=== PATIENT | female | born 1975 | race African-American/Black ===

== ENCOUNTER 2024-06-03 05:29 | Inpatient (IN) ==
[2024-06-03] MEDS: ALBUT/IPRATROP 3MG/0.5MG NEB 3 ML VIAL NEB STA ×2 (05:48→06:02)
--- NOTE | 2024-06-03 06:26 | XRay Report ---
EXAM: XR chest 1V portable CLINICAL HISTORY: SOB, ASTHMA, FLU. TECHNIQUE: An X-ray image of the chest is obtained in AP projection. COMPARISON: Prior study dated 06/01/2024. FINDINGS: Pulmonary Parenchyma: Bilateral prominent bronchovascular markings, hilar vessels on the background of diffuse ground glass haziness Right lower lobe medial ill-defined haziness (new finding) No evidence of pleural effusion or pleural thickening. Heart and Mediastinum: Heart size and shape are normal. No mediastinal widening or masses. No hilar or mediastinal lymphadenopathy. Bony Thorax: Bony thorax appears intact without fractures or deformities. Soft Tissues: Soft tissues overlying the chest wall are unremarkable. IMPRESSION: 1. Bilateral prominent bronchovascular markings, hilar vessels on background of diffuse ground glass haziness (stable). 2. Right lower lobe medial ill-defined haziness (new finding), Clinical and lab correlation is advised to rule out pulmonary infection. Electronically signed by Lizet Valdez 06-03-2024 06:26 AM
[2024-06-03] MEDS: MAGNESIUM SULFATE 1GM / D5W BAG IV ONE (06:42)
[2024-06-03] MEDS: MAGNESIUM SULFATE / D5W 1 GM/100 ML BAG IV STA (06:43)
[2024-06-03] MEDS: SODIUM CHLORIDE 0.9% 1,000 ML IV ONE (06:43)
[2024-06-03 06:51] LABS: Base Excess VBG 3.4 mEq/L; HCO3 VBG 30 mmol/L; Oxygen Saturation VBG < 60.0 %; PCO2 VBG 50 mmHg (38-50); PO2 VBG 23 mmHg; pH VBG 7.38 (7.36-7.41)
[2024-06-03 06:56] LABS: Basophils # (auto) 0.05 K/uL (0.00-0.20); Basophils % (auto) 0.3 %; Eosinophils # (auto) 0.03 K/uL (0.00-0.50); Eosinophils % (auto) 0.2 %; Hematocrit (blood only) 41.4 % (37.0-47.0); Immature Granulocytes # (auto) 0.55 K/uL (0.01-0.20); Immature Granulocytes % (auto) 3.2 %; Lymphocytes # (auto) 1.61 K/uL (1.20-3.40); Lymphocytes % (auto) 9.4 %; Mean Corpuscular Hemoglobin 29.6 pg (25.0-34.0); Mean Corpuscular Hgb Conc 33.8 g/dL (32.0-36.0); Mean Corpuscular Volume 87.5 fL (80.0-100.0); Mean Platelet Volume 9.9 fL (9.4-12.4); Monocytes # (auto) 2.16 K/uL (0.11-0.59); Monocytes % (auto) 12.6 %; Neutrophils # (auto) 12.69 K/uL (1.40-6.50); Neutrophils % (auto) 74.3 %; Platelet Count 405 K/uL (130-400); RDW Coefficient of Variation 15.1 % (11.5-14.5); RDW Standard Deviation 48.9 fL (36.4-46.3); Red Blood Count 4.73 M/uL (4.20-5.40); White Blood Count 17.09 K/ul (4.8-10.8)
[2024-06-03 06:58] LABS: iSTAT Creatinine 0.8 mg/dl (0.6-1.3); iSTAT Hemoglobin 15.6 g/dl (12.0-16.0); iSTAT Ionized Calcium 1.2 mmol/l (1.12-1.32); iSTAT Potassium 4.1 mmol/L (3.3-5.0)
--- NOTE | 2024-06-03 06:59 | Emergency Department Note ---
Impression & Plan Acute hypoxemic respiratory failure, Acute dyspnea, Pneumonia, Influenza A, Elevated brain natriuretic peptide (BNP) level, Elevated troponin ED Provider Note HISTORY OF PRESENT ILLNESS: Patient is a 48-year-old female presenting with increasing shortness of breath. Patient reports that she has been "battling influenza for the last week." States that she has not been on any antibiotics. She was seen here 3 days ago and diagnosed with influenza and discharged with steroids and breathing treatment. She states that she has been taking the steroids and a breathing treatment without any relief in her symptoms, and in the last 24 hours has had increasing shortness of breath and feels like she cannot catch her breath. Denies any DVT or PE history. She does report some diffuse chest pressure that started just prior to arrival in the ER. She is not on any anticoagulation. But she feels like she cannot catch her breath. She has had a cough productive of clear sputum. Denies any recent fevers or chills. Denies any sick contact exposures. ROS: as above PHYSICAL EXAM: Constitutional: Patient appears in no acute distress. HENT: Head: Normocephalic and atraumatic. Eyes: EOMI, PERRL Mouth/Throat: Mucous membranes moist. Neck: Trachea midline. Neck supple. Cardiovascular: Tachycardic with regular rhythm. No murmurs, rubs or gallops. Intact distal pulses. Pulmonary/Chest: No respiratory distress. Breath sounds clear and equal bilaterally. Expiratory wheezes bilaterally. Abdominal: Abdomen soft, no tenderness, rebound or guarding. Musculoskeletal: No edema, tenderness or deformity noted. Skin: Warm and dry. No rash, erythema, pallor or cyanosis Psychiatric: Appropriate mood and affect for situation. Neurological: Alert and keenly responsive. CN II-XII grossly intact, moving all extremities equally and fully. MDM: - Vitals signs showed hypertension and tachycardia. - History obtained via patient. History as above. - Chronic conditions affecting care: Asthma - Differential diagnoses include, but are not limited to: Congestive heart failure; acute coronary syndrome; COPD/asthma exacerbation; pulmonary edema; pulmonary embolism; pneumonia; pneumothorax; viral syndrome - Order placed for continuous cardiac monitoring. At this time, monitor showed rate of 100 bpm with normal sinus rhythm, per my interpretation. - External medical records reviewed. - EKG interpreted by myself showed normal sinus rhythm. Rate tachycardic at 109 bpm. QT 328. No acute ischemic changes. - Laboratory workup interpreted by myself showed leukocytosis (WBC 17.09); normal PT/INR; elevated BNP (177); elevated lactate (2.3); hyperglycemia (glucose 283); elevated troponin (22.4); normal procalcitonin - Blood cultures obtained - VBG normal - Patient given 1g IV magnesium and hour-long duoneb treatment in ER - CXR shows right lower lobe pneumonia, per my interpretation. - Viral respiratory panel positive for influenza A. - UA negative for infection - CT PE negative for PE. Noted to have focal areas of consolidation in the right middle lobe. Also noted to have possible abscesses of the liver and spleen and recommended a CT scan of the abdomen. - CT abdomen/pelvis with IV contrast negative for abscesses. The findings likely represent hemangiomas per radiologist - Leukocytosis may be confounded by the patient's recent initiation of steroids. - Lactate improved with fluids. Elevated troponin likely secondary to patient's respiratory complaint. Repeat troponin trended down to 14. - Given 2g IV rocephin and 500 mg PO azithromycin for pneumonia coverage. - Patient's oxygen saturations are borderline and she was started on 2 L nasal cannula. Will admit to hospitalist service. - Discussion was had with case folder about patient's case and need for admission - Hospitalist consulted for admission - Patient admitted to [facility] hospitalist service for further evaluation and management. ASSESSMENT AND PLAN: Diagnosis: Acute hypoxic respiratory failure; acute dyspnea; pneumonia; elevated BNP; influenza A; elevated troponin Plan: Admit Past Med/Surg History Problem List (Updated 06/03/24 @ 10:19 by Jamee Gale MD) Elevated troponin (Acute) Elevated brain natriuretic peptide (BNP) level (Acute) Influenza A (Acute) Pneumonia (Acute) Acute dyspnea (Acute) Acute hypoxemic respiratory failure (Acute) Shortness of breath (Acute) Asthma (Acute) Influenza (Acute) Social History Smoking Status: Former smoker Preferred Language: [place] Feels Safe at Home: Yes Allergies Allergies Allergy/AdvReac Type Severity Reaction Status Date / Time nicotine [From Nicorette] Allergy Severe tongue Unverified 06/03/24 08:41 swells metformin Allergy sick Unverified 06/03/24 08:41 Home Meds Home Medications Medication Instructions Recorded Confirmed Ocrevus (Unknown Strength) See Rx Instructions .Route .COMPLEX 06/03/24 06/03/24 amlodipine 5 mg tablet 5 mg PO DAILY 06/03/24 06/03/24 lisinopril 10 mg tablet 10 mg PO DAILY 06/03/24 06/03/24 Previous Rx's Medication Instructions Recorded ipratropium 0.5 mg-albuterol 3 mg 3 ml inhalation Q8H PRN wheezing 06/01/24 (2.5 mg base)/3 mL nebulization #90 mL soln Results & Data (ED) Vital Signs Vital Signs - 24 hr 06/03/24 05:34 06/03/24 05:37 06/03/24 06:37 Pulse Rate 99 H 98 H 120 H Pulse Rate [Right Finger] Pulse Rhythm Regular Respiratory Rate 22 18 Respiratory Effort / Characteristics Blood Pressure 181/112 H Blood Pressure [Right Arm] Blood Pressure Mean 135 Blood Pressure Mean [Right Arm] Pulse Oximetry 91 94 Oxygen Delivery Method Room Air Room Air Oxygen Flow Rate Sepsis Recent Fever Within 48 Hours No Sepsis New/Unexplained Change in Mental Status No Sepsis Action Taken by Nursing No Action Required 06/03/24 07:09 06/03/24 07:16 06/03/24 09:36 Pulse Rate 100 H Pulse Rate [Right Finger] 98 H 92 H Pulse Rhythm Respiratory Rate 22 26 H Respiratory Effort / Characteristics Spontaneous Labored Short of Breath Blood Pressure Blood Pressure [Right Arm] 175/115 H Blood Pressure Mean Blood Pressure Mean [Right Arm] 135 Pulse Oximetry 91 99 Oxygen Delivery Method Nasal Cannula Oxygen Flow Rate 3 Sepsis Recent Fever Within 48 Hours Sepsis New/Unexplained Change in Mental Status Sepsis Action Taken by Nursing 06/03/24 09:52 Pulse Rate Pulse Rate [Right Finger] 100 H Pulse Rhythm Respiratory Rate 15 Respiratory Effort / Characteristics Blood Pressure Blood Pressure [Right Arm] Blood Pressure Mean Blood Pressure Mean [Right Arm] Pulse Oximetry 95 Oxygen Delivery Method Nasal Cannula Oxygen Flow Rate 2 Sepsis Recent Fever Within 48 Hours Sepsis New/Unexplained Change in Mental Status Sepsis Action Taken by Nursing Laboratory Data 06/03/24 06:31 06/03/24 06:31 Lab Results 06/03/24 06/03/24 06/03/24 Range/Units 05:45 06:30 06:31 WBC 17.09 H (4.8-10.8) K/ul RBC 4.73 (4.20-5.40) M/uL Hgb 14.0 (12.0-16.0) g/dl POC Hgb (12.0-16.0) g/dl Hct 41.4 (37.0-47.0) % POC Hct (37-47) % MCV 87.5 (80.0-100.0) fL MCH 29.6 (25.0-34.0) pg MCHC 33.8 (32.0-36.0) g/dL RDW Std Deviation 48.9 H (36.4-46.3) fL RDW Coeff of Sal 15.1 H (11.5-14.5) % Plt Count 405 H (130-400) K/uL MPV 9.9 (9.4-12.4) fL Immature Gran % (Auto) 3.2 % Neut % (Auto) 74.3 % Lymph % (Auto) 9.4 % [place] % (Auto) 12.6 % Eos % (Auto) 0.2 % Baso % (Auto) 0.3 % Neut # (Auto) 12.69 H (1.40-6.50) K/uL Lymph # (Auto) 1.61 (1.20-3.40) K/uL [place] # (Auto) 2.16 H (0.11-0.59) K/uL Eos # (Auto) 0.03 (0.00-0.50) K/uL Baso # (Auto) 0.05 (0.00-0.20) K/uL Immature Gran # (Auto) 0.55 H (0.01-0.20) K/uL PT 10.6 (9.0-12.0) Seconds INR 1.0 (0.9-1.1) VBG pH 7.38 (7.36-7.41) VBG pCO2 50 (38-50) mmHg VBG pO2 23 mmHg VBG HCO3 30 mmol/L VBG O2 Saturation < 60.0 % VBG Base Excess 3.4 mEq/L POC Sodium (135-144) mmol/L Sodium 134 L (136-145) mmol/L POC Potassium (3.3-5.0) mmol/L Potassium 4.2 (3.5-5.1) mmol/L POC Chloride (101-112) mmol/L Chloride 95 L (98-107) mmol/L Carbon Dioxide 30 (21-32) mmol/L POC Total CO2 (24-31) mmol/L Anion Gap 9 (3-11) POC Anion Gap (16-25) mmol/L POC BUN (7-18) mg/dl BUN 9 (6-23) mg/dl Creatinine 0.79 (0.6-1.2) mg/dl POC Creatinine (0.6-1.3) mg/dl Est Cr Clr Drug Dosing 83.8 ml/min eGFR 91.64 BUN/Creatinine Ratio 11.4 (10-20) Glucose 283 H (70-99(Fasting)) mg/dl POC Glucose 273 H (70-99) mg/dl POC Glucose (other) (70-99) mg/dl Lactate (0.4-2.0) mmol/L Calcium 10.0 (8.6-10.3) mg/dl POC Ioniz Calcium Mariam (1.12-1.32) mmol/l Magnesium 1.8 (1.7-2.4) mg/dl Total Bilirubin 0.8 (0.2-1.0) mg/dl AST 17 (13-39) U/L ALT 31 (7-52) U/L Alkaline Phosphatase 81 (34-104) U/L Troponin I High Sens 22.4 H D (0-14) pg/ml B-Natriuretic Peptide (0-100) pg/ml Total Protein 7.2 (6.0-8.3) gm/dl Albumin 4.3 (3.4-5.0) gm/dl Globulin 2.9 (2.5-4.0) gm/dl Albumin/Globulin Ratio 1.5 (0.9-2) Procalcitonin < 0.02 (0-0.5) ng/ml Urine Color Urine Appearance (Clear) Urine pH (4.5-7.5) Ur Specific [place] (1.000-1.030) Urine Protein (Negative) Urine Glucose (UA) (Negative) Urine Ketones (Negative) Urine Blood (Negative) Urine Nitrite (Negative) Urine Bilirubin (Negative) Urine Urobilinogen (Negative) Ur Leukocyte Esterase (Negative) Urine WBC (Auto) (0-5) /hpf Urine RBC (Auto) (0-2) /hpf U Hyaline Cast (Auto) (0-2) /lpf U Epithel Cells (Auto) (0-2) /hpf Urine Bacteria (Auto) (None Seen) Adenovirus (PCR) Not Detected (NotDetected) B. pertussis DNA (PCR) Not Detected (NotDetected) B.parapertussis DNA PCR Not Detected (NotDetected) C. pneumoniae DNA (PCR) Not Detected (NotDetected) Coronavirus OC43 (PCR) Not Detected (NotDetected) Coronavirus HKU1 (PCR) Not Detected (NotDetected) Coronavirus 229E (PCR) Not Detected (NotDetected) SARS-CoV-2 (PCR) Not Detected (NotDetected) Coronavirus NL63 (PCR) Not Detected (NotDetected) Human Metapneumovir PCR Not Detected (NotDetected) Influenza A Untype (PCR) DETECTED A (NotDetected) Influenza Type B (PCR) Not Detected (NotDetected) M. pneumoniae (PCR) Not Detected (NotDetected) Parainfluenza 1 (PCR) Not Detected (NotDetected) Parainfluenza 2 (PCR) Not Detected (NotDetected) Parainfluenza 3 (PCR) Not Detected (NotDetected) Parainfluenza 4 (PCR) Not Detected (NotDetected) RSV (PCR) Not Detected (NotDetected) Entero/Rhino (PCR) Not Detected (NotDetected) 06/03/24 06/03/24 06/03/24 Range/Units 06:45 07:29 07:49 WBC (4.8-10.8) K/ul RBC (4.20-5.40) M/uL Hgb (12.0-16.0) g/dl POC Hgb 15.6 (12.0-16.0) g/dl Hct (37.0-47.0) % POC Hct 46 (37-47) % MCV (80.0-100.0) fL MCH (25.0-34.0) pg MCHC (32.0-36.0) g/dL RDW Std Deviation (36.4-46.3) fL RDW Coeff of Sal (11.5-14.5) % Plt Count (130-400) K/uL MPV (9.4-12.4) fL Immature Gran % (Auto) % Neut % (Auto) % Lymph % (Auto) % [place] % (Auto) % Eos % (Auto) % Baso % (Auto) % Neut # (Auto) (1.40-6.50) K/uL Lymph # (Auto) (1.20-3.40) K/uL [place] # (Auto) (0.11-0.59) K/uL Eos # (Auto) (0.00-0.50) K/uL Baso # (Auto) (0.00-0.20) K/uL Immature Gran # (Auto) (0.01-0.20) K/uL PT (9.0-12.0) Seconds INR (0.9-1.1) VBG pH (7.36-7.41) VBG pCO2 (38-50) mmHg VBG pO2 mmHg VBG HCO3 mmol/L VBG O2 Saturation % VBG Base Excess mEq/L POC Sodium 133 L (135-144) mmol/L Sodium (136-145) mmol/L POC Potassium 4.1 (3.3-5.0) mmol/L Potassium (3.5-5.1) mmol/L POC Chloride 95 L (101-112) mmol/L Chloride (98-107) mmol/L Carbon Dioxide (21-32) mmol/L POC Total CO2 29 (24-31) mmol/L Anion Gap (3-11) POC Anion Gap 14.0 L (16-25) mmol/L POC BUN 7 (7-18) mg/dl BUN (6-23) mg/dl Creatinine (0.6-1.2) mg/dl POC Creatinine 0.8 (0.6-1.3) mg/dl Est Cr Clr Drug Dosing ml/min eGFR BUN/Creatinine Ratio (10-20) Glucose (70-99(Fasting)) mg/dl POC Glucose (70-99) mg/dl POC Glucose (other) 270 H (70-99) mg/dl Lactate 2.3 H* (0.4-2.0) mmol/L Calcium (8.6-10.3) mg/dl POC Ioniz Calcium Mariam 1.20 (1.12-1.32) mmol/l Magnesium (1.7-2.4) mg/dl Total Bilirubin (0.2-1.0) mg/dl AST (13-39) U/L ALT (7-52) U/L Alkaline Phosphatase (34-104) U/L Troponin I High Sens (0-14) pg/ml B-Natriuretic Peptide 177 H (0-100) pg/ml Total Protein (6.0-8.3) gm/dl Albumin (3.4-5.0) gm/dl Globulin (2.5-4.0) gm/dl Albumin/Globulin Ratio (0.9-2) Procalcitonin (0-0.5) ng/ml Urine Color Yellow Urine Appearance Clear (Clear) Urine pH 6.0 (4.5-7.5) Ur Specific [place] 1.026 (1.000-1.030) Urine Protein Trace H (Negative) Urine Glucose (UA) 2+ H (Negative) Urine Ketones Negative (Negative) Urine Blood Trace H (Negative) Urine Nitrite Negative (Negative) Urine Bilirubin Negative (Negative) Urine Urobilinogen Negative (Negative) Ur Leukocyte Esterase Negative (Negative) Urine WBC (Auto) 0-5 (0-5) /hpf Urine RBC (Auto) 3-5 H (0-2) /hpf U Hyaline Cast (Auto) 0-2 (0-2) /lpf U Epithel Cells (Auto) 0-2 (0-2) /hpf Urine Bacteria (Auto) None Seen (None Seen) Adenovirus (PCR) (NotDetected) B. pertussis DNA (PCR) (NotDetected) B.parapertussis DNA PCR (NotDetected) C. pneumoniae DNA (PCR) (NotDetected) Coronavirus OC43 (PCR) (NotDetected) Coronavirus HKU1 (PCR) (NotDetected) Coronavirus 229E (PCR) (NotDetected) SARS-CoV-2 (PCR) (NotDetected) Coronavirus NL63 (PCR) (NotDetected) Human Metapneumovir PCR (NotDetected) Influenza A Untype (PCR) (NotDetected) Influenza Type B (PCR) (NotDetected) M. pneumoniae (PCR) (NotDetected) Parainfluenza 1 (PCR) (NotDetected) Parainfluenza 2 (PCR) (NotDetected) Parainfluenza 3 (PCR) (NotDetected) Parainfluenza 4 (PCR) (NotDetected) RSV (PCR) (NotDetected) Entero/Rhino (PCR) (NotDetected) 06/03/24 Range/Units 09:24 WBC (4.8-10.8) K/ul RBC (4.20-5.40) M/uL Hgb (12.0-16.0) g/dl POC Hgb (12.0-16.0) g/dl Hct (37.0-47.0) % POC Hct (37-47) % MCV (80.0-100.0) fL MCH (25.0-34.0) pg MCHC (32.0-36.0) g/dL RDW Std Deviation (36.4-46.3) fL RDW Coeff of Sal (11.5-14.5) % Plt Count (130-400) K/uL MPV (9.4-12.4) fL Immature Gran % (Auto) % Neut % (Auto) % Lymph % (Auto) % [place] % (Auto) % Eos % (Auto) % Baso % (Auto) % Neut # (Auto) (1.40-6.50) K/uL Lymph # (Auto) (1.20-3.40) K/uL [place] # (Auto) (0.11-0.59) K/uL Eos # (Auto) (0.00-0.50) K/uL Baso # (Auto) (0.00-0.20) K/uL Immature Gran # (Auto) (0.01-0.20) K/uL PT (9.0-12.0) Seconds INR (0.9-1.1) VBG pH (7.36-7.41) VBG pCO2 (38-50) mmHg VBG pO2 mmHg VBG HCO3 mmol/L VBG O2 Saturation % VBG Base Excess mEq/L POC Sodium (135-144) mmol/L Sodium (136-145) mmol/L POC Potassium (3.3-5.0) mmol/L Potassium (3.5-5.1) mmol/L POC Chloride (101-112) mmol/L Chloride (98-107) mmol/L Carbon Dioxide (21-32) mmol/L POC Total CO2 (24-31) mmol/L Anion Gap (3-11) POC Anion Gap (16-25) mmol/L POC BUN (7-18) mg/dl BUN (6-23) mg/dl Creatinine (0.6-1.2) mg/dl POC Creatinine (0.6-1.3) mg/dl Est Cr Clr Drug Dosing ml/min eGFR BUN/Creatinine Ratio (10-20) Glucose (70-99(Fasting)) mg/dl POC Glucose (70-99) mg/dl POC Glucose (other) (70-99) mg/dl Lactate 1.4 (0.4-2.0) mmol/L Calcium (8.6-10.3) mg/dl POC Ioniz Calcium Mariam (1.12-1.32) mmol/l Magnesium (1.7-2.4) mg/dl Total Bilirubin (0.2-1.0) mg/dl AST (13-39) U/L ALT (7-52) U/L Alkaline Phosphatase (34-104) U/L Troponin I High Sens 14.4 H D (0-14) pg/ml B-Natriuretic Peptide (0-100) pg/ml Total Protein (6.0-8.3) gm/dl Albumin (3.4-5.0) gm/dl Globulin (2.5-4.0) gm/dl Albumin/Globulin Ratio (0.9-2) Procalcitonin (0-0.5) ng/ml Urine Color Urine Appearance (Clear) Urine pH (4.5-7.5) Ur Specific [place] (1.000-1.030) Urine Protein (Negative) Urine Glucose (UA) (Negative) Urine Ketones (Negative) Urine Blood (Negative) Urine Nitrite (Negative) Urine Bilirubin (Negative) Urine Urobilinogen (Negative) Ur Leukocyte Esterase (Negative) Urine WBC (Auto) (0-5) /hpf Urine RBC (Auto) (0-2) /hpf U Hyaline Cast (Auto) (0-2) /lpf U Epithel Cells (Auto) (0-2) /hpf Urine Bacteria (Auto) (None Seen) Adenovirus (PCR) (NotDetected) B. pertussis DNA (PCR) (NotDetected) B.parapertussis DNA PCR (NotDetected) C. pneumoniae DNA (PCR) (NotDetected) Coronavirus OC43 (PCR) (NotDetected) Coronavirus HKU1 (PCR) (NotDetected) Coronavirus 229E (PCR) (NotDetected) SARS-CoV-2 (PCR) (NotDetected) Coronavirus NL63 (PCR) (NotDetected) Human Metapneumovir PCR (NotDetected) Influenza A Untype (PCR) (NotDetected) Influenza Type B (PCR) (NotDetected) M. pneumoniae (PCR) (NotDetected) Parainfluenza 1 (PCR) (NotDetected) Parainfluenza 2 (PCR) (NotDetected) Parainfluenza 3 (PCR) (NotDetected) Parainfluenza 4 (PCR) (NotDetected) RSV (PCR) (NotDetected) Entero/Rhino (PCR) (NotDetected) Administered Medications Discontinued Medications Albuterol (Albut/Ipratrop 3mg/0.5mg Neb 3 Ml Vial) 3 ml NEB NOW STA; Protocol Stop: 06/03/24 05:39 Last Admin: 06/03/24 05:48 Dose: 3 ml Documented By: SONI Albuterol (Albut/Ipratrop 3mg/0.5mg Neb 3 Ml Vial) 3 ml NEB NOW STA; Protocol Stop: 06/03/24 05:56 Last Admin: 06/03/24 06:02 Dose: 3 ml Documented By: DARIUSZ Albuterol (Albut/Ipratrop 3mg/0.5mg Neb 3 Ml Vial) 12 ml NEB ONE ONE; Protocol Stop: 06/03/24 06:40 Last Admin: 06/03/24 07:09 Dose: 12 ml Documented By: EARLE Azithromycin (Azithromycin 250 Mg Tab) 500 mg PO NOW ONE Stop: 06/03/24 07:28 Last Admin: 06/03/24 08:28 Dose: 500 mg Documented By: ÁLVARO Magnesium Sulfate/Dextrose (Magnesium Sulfate / D5w) 1 gm in 100 mls @ 100 mls/hr IV NOW STA Stop: 06/03/24 07:38 Last Infusion: 06/03/24 08:20 Dose: Infused Documented By: Admin: 06/03/24 06:43 Dose: 100 mls/hr Documented By: DARIUSZ Sodium Chloride (Nss) 1,000 mls @ 999 mls/hr IV .Q1H1M ONE Stop: 06/03/24 07:40 Last Infusion: 06/03/24 08:28 Dose: Infused Documented By: Admin: 06/03/24 06:43 Dose: 999 mls/hr Documented By: DARIUSZ Ceftriaxone Sodium (Rocephin) 2,000 mg in 50 mls @ 100 mls/hr IV NOW STA Stop: 06/03/24 07:56 Last Infusion: 06/03/24 09:47 Dose: Infused Documented By: Admin: 06/03/24 08:29 Dose: 100 mls/hr Documented By: ÁLVARO Ioversol (Optiray 320 125ml) 112 ml IV ONCE ONE Stop: 06/03/24 07:39 Last Admin: 06/03/24 07:39 Dose: 112 ml Documented By: CHRIS Ioversol (Optiray 320 100ml) 93 ml IV ONCE ONE Stop: 06/03/24 09:13 Last Admin: 06/03/24 09:12 Dose: 93 ml Documented By: TALITA Magnesium Sulfate/Dextrose (Magnesium Sulfate 1gm / D5w Bag) Confirm Administered Dose 1 gm IV .STK-MED ONE Stop: 06/03/24 06:39 Last Admin: 06/03/24 06:42 Dose: Not Given Documented By: DARIUSZ Imaging Data Radiologist's Impression: Chest X-Ray 06/03/24 05:38 EXAM: XR chest 1V portable CLINICAL HISTORY: SOB, ASTHMA, FLU. TECHNIQUE: An X-ray image of the chest is obtained in AP projection. COMPARISON: Prior study dated 06/01/2024. FINDINGS: Pulmonary Parenchyma: Bilateral prominent bronchovascular markings, hilar vessels on the background of diffuse ground glass haziness Right lower lobe medial ill-defined haziness (new finding) No evidence of pleural effusion or pleural thickening. Heart and Mediastinum: Heart size and shape are normal. No mediastinal widening or masses. No hilar or mediastinal lymphadenopathy. Bony Thorax: Bony thorax appears intact without fractures or deformities. Soft Tissues: Soft tissues overlying the chest wall are unremarkable. IMPRESSION: 1. Bilateral prominent bronchovascular markings, hilar vessels on background of diffuse ground glass haziness (stable). 2. Right lower lobe medial ill-defined haziness (new finding), Clinical and lab correlation is advised to rule out pulmonary infection. Electronically signed by Lizet Valdez 06-03-2024 06:26 AM Chest CTA 06/03/24 06:31 EXAM: CT angio chest PE protocol CLINICAL HISTORY: Patient was here on sunday, and woke up this morning and symptoms were worsening. patient was here on sunday and was positive for the flu TECHNIQUE: Contiguous 3.[address] angiographic images of the chest were acquired with the administration of intravenous contrast (112ml opti 320). Coronal and sagittal reconstructions were obtained. One of these 3D techniques was utilized: Maximum Intensity Pixel (MIP), 3D Reconstructed Images, Volume Rendered Images, Surface Shaded Rendering. One of the following dose reduction techniques were utilized for this exam: Automated exposure control, adjustment of the mA and/or kV according to patient size, and use of iterative reconstruction. COMPARISON: Prior X-ray dated 06/03/2024 for comparison. FINDINGS: Aorta: The thoracic aorta is normal in caliber. No evidence of aneurysm, dissection, or significant atherosclerotic changes. Aortic arch and descending thoracic aorta are unremarkable. Pulmonary Arteries: Pulmonary arteries are normal in size and opacification. No evidence of pulmonary embolism. No stenosis or filling defects. Superior Vena Cava (SVC) and Inferior Vena Cava (IVC): Normal opacification and caliber. No evidence of thrombus or obstruction. Coronary Arteries: Coronary arteries are well-opacified. No significant stenosis or atherosclerotic changes. Mediastinum: Few enlarged lymph nodes in the subcarinal and right paraesophageal regions. Normal appearance of the thymus. Heart: Normal size and morphology of the heart. No pericardial effusion. Lungs: Focal area of consolidation in the medial segment of the right middle lobe. Multiple ground glass opacities, centrilobular as well as cavitary nodules diffusely scattered in bilateral lungs. Centrilobular emphysema in bilateral lungs. No pleural effusion or thickening. Bones: No fractures or lytic/sclerotic lesions of the visualized bony structures. Normal alignment and bone density. Soft Tissues: Normal appearance of the visualized soft tissues. No abnormal masses or fluid collections. The visualized upper abdomen shows hypodense lesions in the caudate lobe of the liver and spleen likely abscesses. IMPRESSION: 1. No evidence of pulmonary thromboembolism. 2. Focal area of consolidation in the medial segment of the right middle lobe. 3. Multiple ground glass opacities, centrilobular/tree in bud nodules as well as cavitary nodules diffusely scattered in bilateral lungs. 4. Findings likely infective etiology. 5. Few enlarged lymph nodes in the subcarinal and right paraesophageal regions. 6. The visualized upper abdomen shows hypodense lesions in the caudate lobe of the liver and spleen likely abscesses. A dedicated CT scan abdomen is advised Electronically signed by Lizet Valdez 06-03-2024 08:45 AM Abdomen/Pelvis CT 06/03/24 08:[address] WITH IV CONTRAST CT DOSE: 849.83 mGy.cm HISTORY: abnormalities of abdomen and spleen on CT chest TECHNIQUE: Multiaxial CT images of the abdomen and pelvis were performed following the IV administration of 90 cc of Optiray, A dose lowering technique was utilized adhering to the principles of ALARA. COMPARISON STUDY: Chest CT earlier today FINDINGS: Reticular nodular and groundglass opacities diffusely in the visualized lower lungs again seen, likely infectious/inflammatory etiology ABDOMEN: There is an 8 cm oval hypodense finding at the caudate lobe of the liver with peripheral discontinuous nodular enhancement. There is a 3 cm hypodense finding at the superior aspect of the spleen. These findings likely represent hemangiomas. Gallbladder is surgically absent. Pancreas and adrenal glands are unremarkable. Kidneys show no hydronephrosis. There are scattered atherosclerotic calcifications. No abdominal aortic aneurysm. Pelvis: Uterus and adnexa are grossly unremarkable. Urinary bladder is nondistended. There is residual contrast in the renal collecting systems, ureters, and urinary bladder from the contrast chest CT earlier today. No bowel inflammation or obstruction seen. No free fluid, free air, or abscess. No enlarged adenopathy. Osseous structures: There is degenerative disc disease at L5-S1. No acute osseous findings. IMPRESSION: Findings at the liver and spleen likely represent hemangiomas. Suggest follow-up nonurgent pre and postcontrast abdominal MRI with multiphase hemangioma protocol. ACT 112: Positive. There are findings on this exam that require communication between the performing entity and the patient following Patient Test Result Information Act ([place] Act 112) guidelines. The above report was generated using voice recognition software. It may contain grammatical, syntax or spelling errors. Electronically signed by: Shabbir Dubon M.D. 06/03/2024 9:43 AM Discharge Plan Visit Data Chief Complaint: Flu Like Symptoms Stated Complaint: FLU SYMPTOMS ED Provider: Jamee Gale Discharge Problem: Acute hypoxemic respiratory failure, Acute dyspnea, Pneumonia, Influenza A, Elevated brain natriuretic peptide (BNP) level, Elevated troponin Forms Stand Alone Forms: [facility] [email or web address] Prescriptions Prescriptions: No Action ipratropium-albuterol 0.5 mg-3 mg(2.5 mg base)/3 mL solution for nebulization 3 ml inhalation Q8H PRN (Reason: wheezing) Qty: 90 0RF amlodipine 5 mg tablet 5 mg PO DAILY lisinopril 10 mg tablet 10 mg PO DAILY Ocrevus (Unknown Strength) See Rx Instructions .ROUTE .COMPLEX Rx Instructions: Inject every 6 months Referrals Referrals: Jairo Brantley PA-C [Primary Care Provider] -
[2024-06-03] MEDS: ALBUT/IPRATROP 3MG/0.5MG NEB 3 ML VIAL NEB ONE (07:09)
[2024-06-03 07:26] LABS: Prothrombin Time 10.6 Seconds (9.0-12.0)
[2024-06-03 07:34] LABS: Albumin Globulin Ratio 1.5 (0.9-2); Albumin Level 4.3 gm/dl (3.4-5.0); BUN Creatinine Ratio 11.4 (10-20); Bilirubin,Total 0.8 mg/dl (0.2-1.0); Creatinine Clr Calc Pharmacy 83.8 ml/min; Globulin 2.9 gm/dl (2.5-4.0); Magnesium 1.8 mg/dl (1.7-2.4); Potassium 4.2 mmol/L (3.5-5.1); Total Protein 7.2 gm/dl (6.0-8.3)
[2024-06-03] MEDS: OPTIRAY 320 125ml IV ONE (07:39)
[2024-06-03 07:42] LABS: Troponin I High Sensitivity 22.4 pg/ml (0-14)
[2024-06-03] MEDS: AZITHROMYCIN 250 MG TAB PO ONE (08:28)
[2024-06-03] MEDS: cefTRIAXone SODIUM 2,000 MG/50 ML BAG IV STA (08:29)
[2024-06-03 08:35] LABS: Appearance Urine Clear (Clear); Bacteria Urine Automated None Seen (None Seen); Bilirubin Urine Negative (Negative); Blood Urine Trace (Negative); Cast Urine Automated 0-2 /lpf (0-2); Color Urine Yellow; Epithelial Cell Urine Auto 0-2 /hpf (0-2); Glucose Urine UA 2+ (Negative); Ketones Urine Negative (Negative); Leukocyte Esterase Urine Negative (Negative); Nitrite Urine Negative (Negative); Protein Urine Trace (Negative); Specific Gravity Urine 1.026 (1.000-1.030); Urobilinogen Urine Negative (Negative); WBC Urine Automated 0-5 /hpf (0-5)
--- NOTE | 2024-06-03 08:46 | CT Scan Report ---
EXAM: CT angio chest PE protocol CLINICAL HISTORY: Patient was here on sunday, and woke up this morning and symptoms were worsening. patient was here on sunday and was positive for the flu TECHNIQUE: Contiguous 3.[address] angiographic images of the chest were acquired with the administration of intravenous contrast (112ml opti 320). Coronal and sagittal reconstructions were obtained. One of these 3D techniques was utilized: Maximum Intensity Pixel (MIP), 3D Reconstructed Images, Volume Rendered Images, Surface Shaded Rendering. One of the following dose reduction techniques were utilized for this exam: Automated exposure control, adjustment of the mA and/or kV according to patient size, and use of iterative reconstruction. COMPARISON: Prior X-ray dated 06/03/2024 for comparison. FINDINGS: Aorta: The thoracic aorta is normal in caliber. No evidence of aneurysm, dissection, or significant atherosclerotic changes. Aortic arch and descending thoracic aorta are unremarkable. Pulmonary Arteries: Pulmonary arteries are normal in size and opacification. No evidence of pulmonary embolism. No stenosis or filling defects. Superior Vena Cava (SVC) and Inferior Vena Cava (IVC): Normal opacification and caliber. No evidence of thrombus or obstruction. Coronary Arteries: Coronary arteries are well-opacified. No significant stenosis or atherosclerotic changes. Mediastinum: Few enlarged lymph nodes in the subcarinal and right paraesophageal regions. Normal appearance of the thymus. Heart: Normal size and morphology of the heart. No pericardial effusion. Lungs: Focal area of consolidation in the medial segment of the right middle lobe. Multiple ground glass opacities, centrilobular as well as cavitary nodules diffusely scattered in bilateral lungs. Centrilobular emphysema in bilateral lungs. No pleural effusion or thickening. Bones: No fractures or lytic/sclerotic lesions of the visualized bony structures. Normal alignment and bone density. Soft Tissues: Normal appearance of the visualized soft tissues. No abnormal masses or fluid collections. The visualized upper abdomen shows hypodense lesions in the caudate lobe of the liver and spleen likely abscesses. IMPRESSION: 1. No evidence of pulmonary thromboembolism. 2. Focal area of consolidation in the medial segment of the right middle lobe. 3. Multiple ground glass opacities, centrilobular/tree in bud nodules as well as cavitary nodules diffusely scattered in bilateral lungs. 4. Findings likely infective etiology. 5. Few enlarged lymph nodes in the subcarinal and right paraesophageal regions. 6. The visualized upper abdomen shows hypodense lesions in the caudate lobe of the liver and spleen likely abscesses. A dedicated CT scan abdomen is advised Electronically signed by Lizet Valdez 06-03-2024 08:45 AM
[2024-06-03 08:53] LABS: Adenovirus PCR Not Detected (NotDetected); Bordetella parapertussis PCR Not Detected (NotDetected); Bordetella pertussis PCR Not Detected (NotDetected); Chlamydia pneumoniae PCR Not Detected (NotDetected); Coronavirus 229E PCR Not Detected (NotDetected); Coronavirus CoV-2 (COVID19)PCR Not Detected (NotDetected); Coronavirus HKU1 PCR Not Detected (NotDetected); Coronavirus NL63 PCR Not Detected (NotDetected); Coronavirus OC43PCR Not Detected (NotDetected); Human Metapneumovirus PCR Not Detected (NotDetected); Influenza A NoSubtype PCR DETECTED (NotDetected); Influenza B PCR Not Detected (NotDetected); Mycoplasma pneumoniae PCR Not Detected (NotDetected); Parainfluenza Virus 1 PCR Not Detected (NotDetected); Parainfluenza Virus 2 PCR Not Detected (NotDetected); Parainfluenza Virus 3 PCR Not Detected (NotDetected); Parainfluenza Virus 4 PCR Not Detected (NotDetected); Respiratory Syncytial VirusPCR Not Detected (NotDetected); Rhinovirus/Enterovirus PCR Not Detected (NotDetected)
[2024-06-03] MEDS: OPTIRAY 320 100ml IV ONE (09:12)
--- NOTE | 2024-06-03 09:45 | CT Scan Report ---
ABDOMEN AND PELVIS CT WITH IV CONTRAST CT DOSE: 849.83 mGy.cm HISTORY: abnormalities of abdomen and spleen on CT chest TECHNIQUE: Multiaxial CT images of the abdomen and pelvis were performed following the IV administrat ion of 90 cc of Optiray, A dose lowering technique was utilized adhering to the principles of ALARA. COMPARISON STUDY: Chest CT earlier today FINDINGS: Reticular nodular and groundglass opacities diffusely in the visualized lower lungs again s een, likely infectious/inflammatory etiology ABDOMEN: There is an 8 cm oval hypodense finding at the caudate lobe of the liver with peripheral dis continuous nodular enhancement. There is a 3 cm hypodense finding at the superior aspect of the splee n. These findings likely represent hemangiomas. Gallbladder is surgically absent. Pancreas and adrena l glands are unremarkable. Kidneys show no hydronephrosis. There are scattered atherosclerotic calcif ications. No abdominal aortic aneurysm. Pelvis: Uterus and adnexa are grossly unremarkable. Urinary bladder is nondistended. There is residua l contrast in the renal collecting systems, ureters, and urinary bladder from the contrast chest CT e arlier today. No bowel inflammation or obstruction seen. No free fluid, free air, or abscess. No enla rged adenopathy. Osseous structures: There is degenerative disc disease at L5-S1. No acute osseous findings. IMPRESSION: Findings at the liver and spleen likely represent hemangiomas. Suggest follow-up nonurgen t pre and postcontrast abdominal MRI with multiphase hemangioma protocol. ACT 112: Positive. There are findings on this exam that require communication between the performing entity and the patient following Patient Test Result Information Act ([place] Act 112) guidelines. The above report was generated using voice recognition software. It may contain grammatical, syntax o r spelling errors. Electronically signed by: Shabbir Dubon M.D. 06/03/2024 9:43 AM
--- NOTE | 2024-06-03 10:04 | History & Physical Report ---
Date of Service June 03, 2024 Assessment & Plan (1) Influenza A: (2) Acute hypoxemic respiratory failure: (3) Syncope: (4) Hypertension: (5) Hyperglycemia: Plan if a 48F with a PMHx of asthma, HTN and MS, and recent dx of Influenza A who presents to the ED with continued shortness of breath and possible syncopal episodes at home. CTA chest showed no PE, multiple ground glass opacities, cavitary nodules diffusely scattered in bilateral lungs and a few enlarged lymph nodes. Was given steroids, nebs and antibiotics. Will be admitted for continue antibiotics, steroids and syncope workup. #Influenza A/ acute hypoxic respiratory failure/PNA Blood cultures: pending Outside of the window for Tamiflu. Continue IV ceftriaxone 2g q24h, PO azithromycin. Leukocytosis (17) - likely from cute illness + recent steroid use. Trend CBC Baseline room air, wean O2 as able, goal > 90% Supportive care: IS, FV, Mucinex, scheduled nebs Per discussion with Dr. Zapata - consult pulm for cavitary lesions - ID consulted. MRSA coverage added for concerns for septic emboli. #Possible Syncope/ Elevated troponin Reports two episodes at home where she wakes up feeling different, unclear if there is true loss of consciousness Troponin peaked at 22.4. EKG sinus tachycardia without ST elevations. Clinically denies Chest pain. Check orthostatic vital signs. Echo ordered Monitor on Tele. #Hyperglycemia Glucose 283 on admission. A1c ordered SSI with continued steroids hyponatremia corrects to normal with hyperglycemia #HTN Significant elevations on admission but did not take her medications this morning Continue lisinopril 10mg PO, amlodipine 5mg PO #abnormal CT scan findings 8cm hypodense finding in lobe of liver and 3cm hypodense finding of spleen - recommend nonurgent pre and postcontrast abdominal MRI with multiphase hemangioma protocol Pt aware of above 06/03 #Nicotine Dependence hc of 05/15 ppd - stopped smoking with recent illness. declines nicotine patch. Encourage cessation. Dispo: admit to med/tele DVT proh: lovenox Code status: Full updated at bedside 06/03 History of Present Illness Chief Complaint: shortness of breath Primary Care Provider: Jairo Brantley PA-C is a 48F with a PMHx of asmtha, HTN and MS who presents to the ED with continued shortness of breath. Has been diagnosed with influenza A about 2 weeks ago and has that 3 ER visits since then (2 at [facility]) with continued worsening of symptoms. Does report that steroids and nebulizer treatments helped initially but getting worse since noon yesterday. Reports shortness of breath and productive cough. Poor appetite, mainly taking in liquids. Also reporting loose stools. Does report two episodes of possible syncope - both happening at night after a coughing fit and reports "waking up feeling different". She is unsure if she has prodromal symptoms. Did not take her medications this morning, but based on her fill history, she likely does not take these everyday. Elevated BSG on arrival states she has been working with her PCP but has not been to the pharmacy to grain picker the medication yet (unsure of name). Quit smoking a week and half ago when she started getting sick. Was smoking 1/2 ppd. Declines nictoine patch. ETOH use is social. present at [facility] for eval. patient would like to be a full code. ED course: Duoneb NSS x1L Ceftriaxone 2g x1 azithromycin 500mg PO Allergies Allergy/AdvReac Type Severity Reaction Status Date / Time nicotine [From Nicorette] Allergy Severe tongue Unverified 06/03/24 08:41 swells metformin Allergy sick Unverified 06/03/24 08:41 Home Medications Medication Instructions Recorded Confirmed Type ipratropium 0.5 mg-albuterol 3 mg 3 ml inhalation Q8H PRN wheezing 06/01/24 06/03/24 Rx (2.5 mg base)/3 mL nebulization #90 mL soln Ocrevus (Unknown Strength) See Rx Instructions .Route .COMPLEX 06/03/24 06/03/24 History amlodipine 5 mg tablet 5 mg PO DAILY 06/03/24 06/03/24 History lisinopril 10 mg tablet 10 mg PO DAILY 06/03/24 06/03/24 History Past Med/Surg History Problem List Diabetes Bacteremia Hyperglycemia Hypertension Syncope Elevated troponin (Acute) Elevated brain natriuretic peptide (BNP) level (Acute) Influenza A (Acute) Pneumonia (Acute) Acute dyspnea (Acute) Acute hypoxemic respiratory failure (Acute) Shortness of breath (Acute) Asthma (Acute) Influenza (Acute) Social History Smoking Status: Former smoker Hx Alcohol Use: No Hx Substance Use: No Preferred Language: Khmer Communication Ability: Effective 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 Resp: some accessory muscle use, poor aeration. no wheezing, but recently had hour long neb. On 3L NC 92% CV: RRR, no murmur, Abd: normal bowel sounds, non tender, Extremities: Moves all extremities, no edema Neuro: A&O x3, Results & Data Results & Data Vital Signs (Past 12 Hours) Vital Signs Pulse Pulse Resp BP BP Pulse Ox O2 Del Method 06/03/24 09:52 100 H 15 95 Nasal Cannula 06/03/24 09:36 100 H 06/03/24 07:16 92 H 26 H 175/115 H 99 06/03/24 07:09 98 H 22 91 Nasal Cannula 06/03/24 06:37 120 H 18 94 Room Air 06/03/24 05:37 98 H 06/03/24 05:34 99 H 22 181/112 H 91 Room Air O2 Flow Rate 06/03/24 09:52 2 06/03/24 09:36 06/03/24 07:16 06/03/24 07:09 3 06/03/24 06:37 06/03/24 05:37 06/03/24 05:34 Laboratory Results cbc, chemistry, vbg, procal, lfts, UA reviewed Diagnostic Findings cxr reviewed ct chest reviewed cta/p reviewed Supervising Physician Co-Signing Physician Notes Attending Attestation & Admission Note: Pt seen/examined, chart reviewed, admission care plan d/w ZAFAR Mosher. I agree w/ the sharma components of her documentation. 48yo female with history of asthma, MS, and tobacco dependence who presents with 2+ weeks of respiratory symptoms including cough, congestion, wheezing, dyspnea and dyspnea on exertion. Also with very poor po intake. Dx with fluA infection about 2 weeks ago. Multiple ER visits since being dx with fluA. During my assessment c/o chest tightness and orthopnea but no pleuritic pain. PMH/PSH/allergies/meds/sochx/famhx - reviewed Vitals - tachypneic at presentation (RR of 26), O2 sats ~90% at presentation, afebrile, BP wnl gen - looks ill, tired, mild distress mouth - MM dry neck - no JVD heart - tachy, s1 s2, no murmur lungs - b/l basilar rales with b/l wheezes, mild tachypnea abd - soft NT ND BS+ ext - no edema, pulses 2+ b/l labs reviewed cxr reviewed CTA chest - IMPRESSION: 1. No evidence of pulmonary thromboembolism. 2. Focal area of consolidation in the medial segment of the right middle lobe. 3. Multiple ground glass opacities, centrilobular/tree in bud nodules as well as cavitary nodules diffusely scattered in bilateral lungs. 4. Findings likely infective etiology. 5. Few enlarged lymph nodes in the subcarinal and right paraesophageal regions. 6. The visualized upper abdomen shows hypodense lesions in the caudate lobe of the liver and spleen likely abscesses. A dedicated CT scan abdomen is advised blood cx's dispatched A/P: 1. acute hypoxic resp failure 2nd to b/l pneumonia and fluA infection in the setting of baseline asthma 2. b/l pneumonia - cavitary nodules noted by radiology - quite unusual for influenza infection. etiology of nodules?? will ask pulmonary to consult. in meantime - rocephin/zithromax to cover typicals/atypicals. 3. fluA infection - 2 weeks out from start; out of window for Tamiflu anti- viral medicine; supportive care 4. asthma - consider continuing steroids for bronchospasm. Cont nebs. Flutter valve, mucolytics, etc. 5. tobacco dependence - nicoderm patch if desired. 6. MS - laurel risk factor for complications from the influenza. Hold Ocrevus. 7. DVT proph - lovenox. 8. abnormal liver/spleen lesions - etiology? CT a/p with "Findings at the li susie and spleen likely represent hemangiomas. Suggest follow-up nonurgent pre and postcontrast abdominal MRI with multiphase hemangioma protocol." this can be deferred to the outpatient setting after discharge. 9. hyperglycemia - check a1c, add novolog SSI and/or lantus basal insulin if needed. Last Zapata MD PG Care Time/CCT Total # of Minutes Spent Total Time Spent with Patient: Total time spent is greater than 50% in coordination of care (as documented) at patient's floor/unit and/or counseling patient: Coding Level of Care Code 33642 INT INP/OBS CARE 3/75MIN Diagnoses Influenza A J10.1 Acute hypoxemic respiratory failure J96.01 Syncope R55 Hypertension I10 Hyperglycemia R73.9
[2024-06-03] MEDS: guaiFENesin 600 MG TABCR PO SCH (11:53)
[2024-06-03] MEDS: DEXAMETHASONE SOD INJ 4 MG/ML VIAL IV STA (11:54)
[2024-06-03] MEDS: lisinopril 10 MG TAB PO ONE (12:16)
[2024-06-03] MEDS: amLODIPine BESYLATE 5 MG TAB PO ONE (12:16)
--- NOTE | 2024-06-03 13:33 | XCELERA ---
[id number]
[2024-06-03] MEDS ORDERED: GLUCOSE 10 TAB/TUBE PO PRN (13:44)
[2024-06-03] MEDS ORDERED: GLUCOSE 40% GEL 15 GM TUBE PO PRN (13:44)
[2024-06-03] MEDS ORDERED: GLUCAGON FOR INJ 1 MG VIAL SQ PRN (13:44)
[2024-06-03] MEDS ORDERED: POLYETHYLENE (MIRALAX) 17 GM PACK PO PRN (13:44)
[2024-06-03] MEDS ORDERED: ACETAMINOPHEN 325 MG TAB PO PRN (13:44)
[2024-06-03] MEDS ORDERED: ONDANSETRON INJ 2 MG/ML 2 ML VIAL IV PRN (13:44)
[2024-06-03] MEDS ORDERED: CARBOHYDRATES FOR HYPOGLYCEMIA PO PRN (13:44)
[2024-06-03] MEDS ORDERED: DEXTROSE 50% 50 ML SYRINGE IV PRN (13:44)
--- NOTE | 2024-06-03 13:58 | Electrocardiogram Report ---
Test Reason : Blood Pressure : */* mmHG Vent. Rate : 109 BPM Atrial Rate : 109 BPM P-R Int : 132 ms QRS Dur : 78 ms QT Int : 328 ms P-R-T Axes : 91 104 106 degrees QTcB Int : 441 ms Suspect arm lead reversal, interpretation assumes no reversal Sinus tachycardia Right atrial enlargement Minimal voltage criteria for LVH, may be normal variant Lateral infarct , age undetermined Abnormal ECG When compared with ECG of 01-Jun-2024 10:09, Lateral infarct is now Present Confirmed by Jefferson Mix ([id number] on 06/03/2024 1:58:26 PM Referred By: REFERRED SELF Confirmed By: Jefferson Mix
--- NOTE | 2024-06-03 14:26 | Pulmonary Consultation ---
Date of Consultation June 03, 2024 Assessment & Plan (1) Influenza A: (2) Pneumonia: Plan Impression: 48-year-old immune suppressed female on Ocrevus and prednisone for MS admitted 2 weeks post influenza with findings on CT scans concerning for hematogenous spread. There are hypodense lesions in the liver and spleen which likely represent abscesses as well. Recommendations: 1. CT findings are highly concerning for hematogenous spread/septic emboli. Echocardiogram reviewed. Blood cultures are pending. The patient is been initiated on azithromycin and Rocephin. Would recommend infectious disease consultation. 2. Hypoxemia: Continue supplemental oxygen titrated to keep saturations at or above 88%. 3. Follow-up on results of blood cultures. If positive, may need SAEID evaluation including evaluation for PFO for paradoxical embolus. 4. Influenza A: 2 weeks out. No indication for Tamiflu currently. At risk for superimposed staph infection and would defer to infectious disease as to whether or not antibiotic should be broadened. Steroids relatively contraindicated in the setting of influenza. 5. Asthma: Unclear if the patient actually has asthma or not. She is not bronchospastic currently. Can continue as needed DuoNebs. No indication for systemic steroids at this point in time. Total of 60 minutes was spent in evaluation management coordination of care of this complex patient. Thanks for the opportunity to participate in the care of this patient. Will continue to follow with you. History of Present Illness Attending Physician: Last Zapata MD History of Present Illness Asked by hospitalist to assist in evaluation management of this patient with multifocal airspace opacity and hypoxemic respiratory failure. History is obtained from discussion with the patient as well as review the electronic medical record. Patient is a 48-year-old female who is established with Dr. Alejandre through [facility]. She is followed for history of asthma. She presents to the hospital with a 2-week history of respiratory issues. She has apparently been seen in the [facility] emergency room on several occasions and sent home. We do not have any records from those evaluations which she was diagnosed with influenza A. She was reportedly given steroids and nebulizers but had progressive shortness of breath and presyncope associated with cough. She presented to the emergency room here due to progressive symptoms. She was found to have multifocal airspace opacity and initiated on Rocephin and azithromycin. She was hypoxemic and supplemental oxygen was initiated as well. She was evaluated for thromboembolic disease with no evidence of PE. She been admitted to the hospitalist service and pulmonary is consulted for additional evaluation management. Patient is coughing up yellow phlegm. Initially was green. She is never had hemoptysis. She denies chest pain or palpitations. She lives at home with her . He may be ill as well. She has 1 dog at home but no other pets. She quit smoking about 3 weeks ago. She does not endorse any vaping, or e-cigarette use. No occupational or environmental exposures that she is on disability due to her MS. She states at baseline she is able to ambulate without assistance and does not use supplemental oxygen at baseline. With regards to her asthma, no PFTs are available although she reports she has had pulmonary function testing performed previously. Allergies Allergy/AdvReac Type Severity Reaction Status Date / Time nicotine [From Nicorette] Allergy Severe tongue Unverified 06/03/24 08:41 swells metformin Allergy sick Unverified 06/03/24 08:41 Home Medications Medication Instructions Recorded Confirmed Type ipratropium 0.5 mg-albuterol 3 mg 3 ml inhalation Q8H PRN wheezing 06/01/24 06/03/24 Rx (2.5 mg base)/3 mL nebulization #90 mL soln Ocrevus (Unknown Strength) See Rx Instructions .Route .COMPLEX 06/03/24 06/03/24 History amlodipine 5 mg tablet 5 mg PO DAILY 06/03/24 06/03/24 History lisinopril 10 mg tablet 10 mg PO DAILY 06/03/24 06/03/24 History Patient History Social History Smoking Status: Former smoker Preferred Language: Khmer Feels Safe at Home: Yes Review of Systems Review of Systems: Please refer to admission H&P. No additions or deletions Physical Exam Constitutional: WD/WN, vitals as above Neck: trachea midline, no thyromegaly Respiratory: + labored breathing and + tachypneic; no respiratory distress and no cough Auscultation: + rhonchi; no wheezes Cardiovascular: RRR, no murmur, no edema Gastrointestinal (Abdomen): normal bowel sounds, soft, nontender, no hepatosplenomegaly Musculoskeletal: Extremities: extremities normal to inspection Skin: no rashes, warm and dry Neurologic: Nonfocal exam Lymphatic: no cervical lymphadenopathy Results & Data Results & Data Vital Signs (Past 12 Hours) Vital Signs Pulse Pulse Resp BP BP Pulse Ox O2 Del Method 06/03/24 11:00 98 H 22 167/111 H 98 Room Air 06/03/24 09:52 100 H 15 95 Nasal Cannula 06/03/24 09:36 100 H 06/03/24 07:16 92 H 26 H 175/115 H 99 06/03/24 07:09 98 H 22 91 Nasal Cannula 06/03/24 06:37 120 H 18 94 Room Air 06/03/24 05:37 98 H 06/03/24 05:34 99 H 22 181/112 H 91 Room Air O2 Flow Rate 06/03/24 11:00 06/03/24 09:52 2 06/03/24 09:36 06/03/24 07:16 06/03/24 07:09 3 06/03/24 06:37 06/03/24 05:37 06/03/24 05:34 Critical Care Results & Data Vital Signs (Past 12 Hours) Vital Signs Pulse Pulse Resp BP BP Pulse Ox O2 Del Method 06/03/24 11:00 98 H 22 167/111 H 98 Room Air 06/03/24 09:52 100 H 15 95 Nasal Cannula 06/03/24 09:36 100 H 06/03/24 07:16 92 H 26 H 175/115 H 99 06/03/24 07:09 98 H 22 91 Nasal Cannula 06/03/24 06:37 120 H 18 94 Room Air 06/03/24 05:37 98 H 06/03/24 05:34 99 H 22 181/112 H 91 Room Air O2 Flow Rate 06/03/24 11:00 06/03/24 09:52 2 06/03/24 09:36 06/03/24 07:16 06/03/24 07:09 3 06/03/24 06:37 06/03/24 05:37 06/03/24 05:34 Lab & Micro Results (Past 24 Hours) RBC 4.73 M/uL (4.20-5.40) 06/03/24 WBC 17.09 K/ul (4.8-10.8) H 06/03/24 Hgb 14.0 g/dl (12.0-16.0) 06/03/24 Hct 41.4 % (37.0-47.0) 06/03/24 MCV 87.5 fL (80.0-100.0) 06/03/24 MCH 29.6 pg (25.0-34.0) 06/03/24 MCHC 33.8 g/dL (32.0-36.0) 06/03/24 RDW Standard Deviation 48.9 fL (36.4-46.3) H 06/03/24 RDW Coefficient of Variation 15.1 % (11.5-14.5) H 06/03/24 Plt Count 405 K/uL (130-400) H 06/03/24 MPV 9.9 fL (9.4-12.4) 06/03/24 Neutrophils (%) (Auto) 74.3 % 06/03/24 Lymphocytes (%) (Auto) 9.4 % 06/03/24 Monocytes # (Auto) 2.16 K/uL (0.11-0.59) H 06/03/24 Eosinophils # (Auto) 0.03 K/uL (0.00-0.50) 06/03/24 Immature Granulocyte % (Auto) 3.2 % 06/03/24 Neutrophils # (Auto) 12.69 K/uL (1.40-6.50) H 06/03/24 Lymphocytes # (Auto) 1.61 K/uL (1.20-3.40) 06/03/24 Monocytes # (Auto) 2.16 K/uL (0.11-0.59) H 06/03/24 Eosinophils # (Auto) 0.03 K/uL (0.00-0.50) 06/03/24 Basophils # (Auto) 0.05 K/uL (0.00-0.20) 06/03/24 Immature Granulocyte # (Auto) 0.55 K/uL (0.01-0.20) H 06/03 Na 134 mmol/L (136-145) L 06/03/24 K 4.2 mmol/L (3.5-5.1) 06/03/24 Cl 95 mmol/L (98-107) L 06/03/24 CO2 30 mmol/L (21-32) 06/03/24 Anion Gap 9 (3-11) 06/03/24 BUN 9 mg/dl (6-23) 06/03/24 Creatinine 0.79 mg/dl (0.6-1.2) 06/03/24 BUN/Creatinine Ratio 11.4 (10-20) 06/03/24 Glu 283 mg/dl (70-99(Fasting)) H 06/03/24 Ca 10.0 mg/dl (8.6-10.3) 06/03/24 Total Bilirubin 0.8 mg/dl (0.2-1.0) 06/03/24 AST 17 U/L (13-39) 06/03/24 ALT 31 U/L (7-52) 06/03/24 Alkaline Phosphatase 81 U/L (34-104) 06/03/24 TP 7.2 gm/dl (6.0-8.3) 06/03/24 Albumin 4.3 gm/dl (3.4-5.0) 06/03/24 Globulin 2.9 gm/dl (2.5-4.0) 06/03/24 Albumin/Globulin Ratio 1.5 (0.9-2) 06/03/24 Mg 1.8 mg/dl (1.7-2.4) 06/03/24 06:31 Calcium Level 10.0 mg/dl (8.6-10.3) 06/03/24 06:31 Prothromb Time International Ratio 1.0 (0.9-1.1) 06/03/24 06:3 1 Venous Blood pH 7.38 (7.36-7.41) 06/03/24 06:31 Venous Blood Partial Pressure CO2 50 mmHg (38-50) 06/03/24 06:3 1 Venous Blood Partial Pressure O2 23 mmHg 06/03/24 06:31 Venous Blood HCO3 30 mmol/L 06/03/24 06:31 Venous Blood Base Excess 3.4 mEq/L 06/03/24 06:31 Venous Blood Oxygen Saturation < 60.0 % 06/03/24 06:31 Diagnostic Findings (Past 24 Hours) Chest X-Ray 06/03/24 05:38 EXAM: XR chest 1V portable CLINICAL HISTORY: SOB, ASTHMA, FLU. TECHNIQUE: An X-ray image of the chest is obtained in AP projection. COMPARISON: Prior study dated 06/01/2024. FINDINGS: Pulmonary Parenchyma: Bilateral prominent bronchovascular markings, hilar vessels on the background of diffuse ground glass haziness Right lower lobe medial ill-defined haziness (new finding) No evidence of pleural effusion or pleural thickening. Heart and Mediastinum: Heart size and shape are normal. No mediastinal widening or masses. No hilar or mediastinal lymphadenopathy. Bony Thorax: Bony thorax appears intact without fractures or deformities. Soft Tissues: Soft tissues overlying the chest wall are unremarkable. IMPRESSION: 1. Bilateral prominent bronchovascular markings, hilar vessels on background of diffuse ground glass haziness (stable). 2. Right lower lobe medial ill-defined haziness (new finding), Clinical and lab correlation is advised to rule out pulmonary infection. Electronically signed by Lizet Valdez 06-03-2024 06:26 AM Chest CTA 06/03/24 06:31 EXAM: CT angio chest PE protocol CLINICAL HISTORY: Patient was here on sunday, and woke up this morning and symptoms were worsening. patient was here on sunday and was positive for the flu TECHNIQUE: Contiguous 3.[address] angiographic images of the chest were acquired with the administration of intravenous contrast (112ml opti 320). Coronal and sagittal reconstructions were obtained. One of these 3D techniques was utilized: Maximum Intensity Pixel (MIP), 3D Reconstructed Images, Volume Rendered Images, Surface Shaded Rendering. One of the following dose reduction techniques were utilized for this exam: Automated exposure control, adjustment of the mA and/or kV according to patient size, and use of iterative reconstruction. COMPARISON: Prior X-ray dated 06/03/2024 for comparison. FINDINGS: Aorta: The thoracic aorta is normal in caliber. No evidence of aneurysm, dissection, or significant atherosclerotic changes. Aortic arch and descending thoracic aorta are unremarkable. Pulmonary Arteries: Pulmonary arteries are normal in size and opacification. No evidence of pulmonary embolism. No stenosis or filling defects. Superior Vena Cava (SVC) and Inferior Vena Cava (IVC): Normal opacification and caliber. No evidence of thrombus or obstruction. Coronary Arteries: Coronary arteries are well-opacified. No significant stenosis or atherosclerotic changes. Mediastinum: Few enlarged lymph nodes in the subcarinal and right paraesophageal regions. Normal appearance of the thymus. Heart: Normal size and morphology of the heart. No pericardial effusion. Lungs: Focal area of consolidation in the medial segment of the right middle lobe. Multiple ground glass opacities, centrilobular as well as cavitary nodules diffusely scattered in bilateral lungs. Centrilobular emphysema in bilateral lungs. No pleural effusion or thickening. Bones: No fractures or lytic/sclerotic lesions of the visualized bony structures. Normal alignment and bone density. Soft Tissues: Normal appearance of the visualized soft tissues. No abnormal masses or fluid collections. The visualized upper abdomen shows hypodense lesions in the caudate lobe of the liver and spleen likely abscesses. IMPRESSION: 1. No evidence of pulmonary thromboembolism. 2. Focal area of consolidation in the medial segment of the right middle lobe. 3. Multiple ground glass opacities, centrilobular/tree in bud nodules as well as cavitary nodules diffusely scattered in bilateral lungs. 4. Findings likely infective etiology. 5. Few enlarged lymph nodes in the subcarinal and right paraesophageal regions. 6. The visualized upper abdomen shows hypodense lesions in the caudate lobe of the liver and spleen likely abscesses. A dedicated CT scan abdomen is advised Electronically signed by Lizet Valdez 06-03-2024 08:45 AM Abdomen/Pelvis CT 06/03/24 08:[address] WITH IV CONTRAST CT DOSE: 849.83 mGy.cm HISTORY: abnormalities of abdomen and spleen on CT chest TECHNIQUE: Multiaxial CT images of the abdomen and pelvis were performed fo llowing the IV administration of 90 cc of Optiray, A dose lowering technique was utilized adhering to the principles of ALARA. COMPARISON STUDY: Chest CT earlier today FINDINGS: Reticular nodular and groundglass opacities diffusely in the visualized lower lungs again seen, likely infectious/inflammatory etiology ABDOMEN: There is an 8 cm oval hypodense finding at the caudate lobe of the liver with peripheral discontinuous nodular enhancement. There is a 3 cm hypodense finding at the superior aspect of the spleen. These findings likely represent hemangiomas. Gallbladder is surgically absent. Pancreas and adrenal glands are unremarkable. Kidneys show no hydronephrosis. There are scattered atherosclerotic calcifications. No abdominal aortic aneurysm. Pelvis: Uterus and adnexa are grossly unremarkable. Urinary bladder is nondistended. There is residual contrast in the renal collecting systems, ureters, and urinary bladder from the contrast chest CT earlier today. No bowel inflammation or obstruction seen. No free fluid, free air, or abscess. No enlarged adenopathy. Osseous structures: There is degenerative disc disease at L5-S1. No acute osseous findings. IMPRESSION: Findings at the liver and spleen likely represent hemangiomas. Suggest follow-up nonurgent pre and postcontrast abdominal MRI with multiphase hemangioma protocol. ACT 112: Positive. There are findings on this exam that require communication between the performing entity and the patient following Patient Test Result Information Act ([place] Act 112) guidelines. The above report was generated using voice recognition software. It may contain grammatical, syntax or spelling errors. Electronically signed by: Shabbir Dubon M.D. 06/03/2024 9:43 AM I & O Totals 24 Hours 06/02/24 06/03/24 06/04/24 06:59 06:59 06:59 Intake Total 1150 / 1150 Balance 1150 / 1150 Cumulative 06/03/24 05:29 thru 06/03/24 09:47 Intake Total 1150 Balance 1150 RT Ventilator Mngmt (Last Documented) Ventilator Ordered Settings Respiratory Rate 22 06/03/24 11:00 Ventilator - PT Measurements Respiratory Rate 22 PG Care Time/CCT Total # of Minutes Spent Total Time Spent with Patient: Total time spent is greater than 50% in coordination of care (as documented) at patient's floor/unit and/or counseling patient: Coding Level of Care Code 52584 IN/OBS CONSULT LVL 4,60M Diagnoses Influenza A J10.1 Pneumonia J18.9
[2024-06-03] MEDS: ALBUT/IPRATROP 3MG/0.5MG NEB 3 ML VIAL NEB SCH (14:44)
[2024-06-03] MEDS: INSULIN ASPART PER UNIT CHARGE SC SCH (15:23)
[2024-06-03] MEDS ORDERED: VANCOMYCIN CONSULT ACTIVE PRN (17:00)
--- NOTE | 2024-06-03 17:18 | Pharmacy Report ---
Pharmacy PK ABX Note - Date of Service June 03, 2024 - Assessment and Plan Assessment 48 year old F receiving Vancomycin, Ceftriaxone and Azithromycin for treatment of pneumonia. * Day #1 of antimicrobial therapy. ID consulted. * Flu A positive. Outside of window for Tamiflu. * MRSA swab and blood cultures pending. Plan Vancomycin * Loading dose: 1500 mg IV x 1 * Maintenance dose: 1000 mg IV every 12 hours * Regimen is predicted to achieve target AUC/DADA of 400-600 mg/L.hr * Random level ordered for: 06/05/24 Pharmacy will continue to follow and will adjust dose/frequency as necessary. Thank you. Pharmacy has transitioned to AUC monitoring for vancomycin. AUC/DADA is the preferred PK/PD target and is associated with decreased risk of nephrotoxicity compared to traditional trough targets.
[2024-06-03] MEDS: VANCOMYCIN HCL 1,500 MG in SODIUM CHLORIDE 0.9% 500 ML IV ONE (17:47)
[2024-06-04 01:55] LABS: A calco-baum cmplx NotReported Not Detected (NotDetected); Bact fragilis Not Reported Not Detected (NotDetected); Blood Culture Id Panel See PCR Comment (NotDetected); C auris Not Reported Not Detected (NotDetected); Calbicans Not Reported Not Detected (NotDetected); Candida glabrata Not Reported Not Detected (NotDetected); Candida krusei Not Reported Not Detected (NotDetected); Cneoformans/gatti Not Reported Not Detected (NotDetected); Cparapsilosis Not Reported Not Detected (NotDetected); E cloacae compx Not Reported Not Detected (NotDetected); Efaecalis Not Reported Not Detected (NotDetected); Efaecium Not Reported Not Detected (NotDetected); Enterobacterales Not Reported Not Detected (NotDetected); Escherichia coli Not Reported Not Detected (NotDetected); H influenzae Not Reported Not Detected (NotDetected); K aerogenes Not Reported Not Detected (NotDetected); Koxytoca Not Reported Not Detected (NotDetected); Kpneumoniae grp Not Reported Not Detected (NotDetected); Lmonocyt Not Reported Not Detected (NotDetected); N meningitidis Not Reported Not Detected (NotDetected); P aeruginosa Not Reported Not Detected (NotDetected); Proteus spp Not Reported Not Detected (NotDetected); Salmonella spp Not Reported Not Detected (NotDetected); Staph lugdunensis Not Reported Not Detected (NotDetected); Staph spp. Not Reported Not Detected (NotDetected); Staphaureus Not Reported Not Detected (NotDetected); Staphepi Not Reported Not Detected (NotDetected); Stenmaltophilia Not Reported Not Detected (NotDetected); Strep agal(GrpB) Not Reported Not Detected (NotDetected); Strep pneum Not Reported DETECTED (NotDetected); Strep pyog (GrpA) Not Reported Not Detected (NotDetected); Strep spp Not Reported DETECTED (NotDetected); Streptococcus spp DETECTED (NotDetected)
[2024-06-04 02:00] LABS: Streptococcus pneumoniae DETECTED (NotDetected)
[2024-06-04] MEDS: VANCOMYCIN HCL 1,000 MG/270 ML BAG IV SCH (06:21)
--- NOTE | 2024-06-04 07:44 | Hospitalist Progress Note ---
Date of Service June 04, 2024 Assessment & Plan (1) Influenza A: (2) Acute hypoxemic respiratory failure: (3) Syncope: (4) Hypertension: (5) Hyperglycemia: (6) Bacteremia: (7) Diabetes: Plan if a 48F with a PMHx of asthma, HTN and MS (immunocomp on ocrevous, last infusion in Mar), and recent dx of Influenza A who presents to the ED with continued shortness of breath and possible syncopal episodes at home. CTA chest showed no PE, multiple ground glass opacities, cavitary nodules diffusely scattered in bilateral lungs and a few enlarged lymph nodes. Was given steroids, nebs and antibiotics. in ER w/ need for 4L NC to maintain saturations #Influenza A/ acute hypoxic respiratory failure/PNA Outside of the window for Tamiflu. WBC 17k on admission, suspect aspect of recent steroid use but also superimposed bacterial infection/concerns for hematogenous spread on CT chest (neg for PE) Pulmonology consulted, No role for steroids at this time. ID consulted Continue IV Abx --remains on Ceftriaxone 2gm IV, azithromycin, Vanco IV to cover for MRSA (Nares negative) WBC trending down, 12.9k. Discussed with ID this morning given blood cultures POSITIVE (strep pneumonia on preliminary 05/15 sets) and continues abx as outlined and repeat blood cultures for 06/04 placed ECHO w/o vegetation but planning for SAEID given +blood cx, to be done in AM per Dr Mix no need for cardiology consult. NPO at midnight Pulmonary toilet, incentive spirometer, mucinex Sputum cx ordered, suspect same results Pepcid for GI proph, Lovenox SQ for DVT prophylaxis Continued inpatient stay Will plan to consult PT/OT in AM Bacteremia positive blood cx this morning as above, suspect 2nd bacterial infection/hematogenous spread concerns on CT imaging to spleen/liver (possible hemangioma, will need MRI in f/u) ID consulted as above and remains on abx, repeat blood cx obtained for today and checking SAEID in AM given TTE w/o vegetation/emboli F/u repeat blood cultures until clearance, f/u on final blood cx from admission #Possible Syncope/ Elevated troponin Reports two episodes at home where she wakes up feeling different, unclear if there is true loss of consciousness Troponin peaked at 22.4. EKG sinus tachycardia without ST elevations. Clinically denies Chest pain. Orthostatic VS + today 06/04, will order NS /monitor repeat however denied any repeat sx No further syncope reported, suspect could be 2nd to above/bacteremia and tx as outlined No CP reported, ECHO w/o wma #Hyperglycemia/Diabetes Mellitus Glucose 283 on admission, suspect 2nd to recent steroids and acute illness above. No anion gap/acidosis BSGs improved this morning but elevated, A1c noted to be 8.9 w/ recent steroids and pharmacy consulted for additional assistance. BSGs stable/monitor Will need f/u #HTN Significant elevations on admission but did not take her medications this morning and continued on lisinopril 10mg, amlodipine PO. IVF x 500cc as above and additional amlodipine 5mg x1 and will moniotr for further increase as needed. Notable ECHO w/ severe left ventricular hypertrophy and suspect will need better BP control pending further eval/testing/monitoring #abnormal CT scan findings 8cm hypodense finding in lobe of liver and 3cm hypodense finding of spleen Pt aware of above 06/03 , will need nonurgent pre and postcontrast abdominal MRI with multiphase hemangioma protocol ed #Nicotine Dependence hc of 05/15 ppd - stopped smoking with recent illness. declines nicotine patch. Encourage cessation. DVT proph: Lovenox SQ continued Dispo: continued inpatient stay on IV abx, ID consulted/pending but has been discussed - plan for SAEID in AM/NPO at midnight and repeat blood cultures pending and will need to ensure clearance x 48hr prior to dc Will need nonemergent MRI abd for hemangioma Will plan to consult PT/OT in AM pending course Admission and Anticipated Discharge Date Admission Date: June 03, 2024 Supervising Physician Co-Signing Physician Notes The patient was not seen by me. The chart was reviewed. Case discussed with ZAFAR Campbell. Agree with assessment and plan Subjective Eval this morning, discussed w/ nursing and patient and much improved from admission. On room air but sat high 80s and placed back on supplemental. Reports using flutter valve, sputum production. Discussed blood cultures +, repeat ordered but also need for SAEID and either today/tomorrow pending timing. ID consult pending but was seen, immunocompromised on Ocrevus for her MS -- notable last infusion ~3rd week of March. Typically does get pneumonia w/ flu in the past, as discussed likely as immunocompromised. Discussed continued inpatient stay and monitoring repeat blood cultures and need for negative x 48hour, best case dc on Sunday but could be the weekend. Hx crack abuse over 15 years ago, discussed she felt like OSH treating her like addict and not properly treating 2 weeks ago. No CP. Appetite improved. +BM this morning reported. Questions/concerns addressed at this time. Has 12 children. Physical Exam 2 Physical Exam: General: 48yo female sitting up in bed, NAD/reports feeling MUCH better, increased sputum prodution with use of flutter valve reported HEENT: head atraumatic, normocephalic, mm IMPROVED, trachea midline Resp: even/unlabored, no wheezing, +rhonchi, on 1L NC this morning, no tachypnea, +cough CV: regular, rates stable on telemetry, no significant m/r/g, no pitting edema, calves nontender GI: +BS, soft/NT no jean baptiste MSK/Neuro: not confused, answering questions appropriately, moves all extremities, no focal loss of strength Psych: AOx3, cooperative/pleasant during encounter Results & Data Results & Data Vital Signs (Past 12 Hours) Vital Signs Temp Pulse Pulse Resp BP Pulse Ox O2 Del Method 06/04/24 07:06 94 H 06/04/24 06:21 36.4 C L 97 H 18 135/83 92 Nasal Cannula 06/04/24 04:02 36.6 C 84 18 112/64 93 Nasal Cannula 06/04/24 02:10 96 H 18 98 Nasal Cannula 06/03/24 23:36 94 H 20 92 Nasal Cannula 06/03/24 23:10 36.6 C 84 16 117/66 95 Nasal Cannula 06/03/24 21:47 100 H 06/03/24 21:00 Nasal Cannula 06/03/24 20:58 87 17 93 Room Air O2 Flow Rate 06/04/24 07:06 06/04/24 06:21 2 06/04/24 04:02 4 06/04/24 02:10 2 06/03/24 23:36 2 06/03/24 23:10 4 06/03/24 21:47 06/03/24 21:00 06/03/24 20:58 Laboratory Results 06/04/24 09:21 06/04/24 09:21 A1c 8.9 Trop 12--> 22.4 --> 14.4 Mag 2.1 Blood cultures streptococcus pneumoniae 1/2 sets 06/03 -- repeat blood cx pending Diagnostic Findings Chest X-Ray 06/03/24 05:38 EXAM: XR chest 1V portable CLINICAL HISTORY: SOB, ASTHMA, FLU. TECHNIQUE: An X-ray image of the chest is obtained in AP projection. COMPARISON: Prior study dated 06/01/2024. FINDINGS: Pulmonary Parenchyma: Bilateral prominent bronchovascular markings, hilar vessels on the background of diffuse ground glass haziness Right lower lobe medial ill-defined haziness (new finding) No evidence of pleural effusion or pleural thickening. Heart and Mediastinum: Heart size and shape are normal. No mediastinal widening or masses. No hilar or mediastinal lymphadenopathy. Bony Thorax: Bony thorax appears intact without fractures or deformities. Soft Tissues: Soft tissues overlying the chest wall are unremarkable. IMPRESSION: 1. Bilateral prominent bronchovascular markings, hilar vessels on background of diffuse ground glass haziness (stable). 2. Right lower lobe medial ill-defined haziness (new finding), Clinical and lab correlation is advised to rule out pulmonary infection. Electronically signed by Lizet Valdez 06-03-2024 06:26 AM Chest CTA 06/03/24 06:31 EXAM: CT angio chest PE protocol CLINICAL HISTORY: Patient was here on sunday, and woke up this morning and symptoms were worsening. patient was here on sunday and was positive for the flu TECHNIQUE: Contiguous 3.[address] angiographic images of the chest were acquired with the administration of intravenous contrast (112ml opti 320). Coronal and sagittal reconstructions were obtained. One of these 3D techniques was utilized: Maximum Intensity Pixel (MIP), 3D Reconstructed Images, Volume Rendered Images, Surface Shaded Rendering. One of the following dose reduction techniques were utilized for this exam: Automated exposure control, adjustment of the mA and/or kV according to patient size, and use of iterative reconstruction. COMPARISON: Prior X-ray dated 06/03/2024 for comparison. FINDINGS: Aorta: The thoracic aorta is normal in caliber. No evidence of aneurysm, dissection, or significant atherosclerotic changes. Aortic arch and descending thoracic aorta are unremarkable. Pulmonary Arteries: Pulmonary arteries are normal in size and opacification. No evidence of pulmonary embolism. No stenosis or filling defects. Superior Vena Cava (SVC) and Inferior Vena Cava (IVC): Normal opacification and caliber. No evidence of thrombus or obstruction. Coronary Arteries: Coronary arteries are well-opacified. No significant stenosis or atherosclerotic changes. Mediastinum: Few enlarged lymph nodes in the subcarinal and right paraesophageal regions. Normal appearance of the thymus. Heart: Normal size and morphology of the heart. No pericardial effusion. Lungs: Focal area of consolidation in the medial segment of the right middle lobe. Multiple ground glass opacities, centrilobular as well as cavitary nodules diffusely scattered in bilateral lungs. Centrilobular emphysema in bilateral lungs. No pleural effusion or thickening. Bones: No fractures or lytic/sclerotic lesions of the visualized bony structures. Normal alignment and bone density. Soft Tissues: Normal appearance of the visualized soft tissues. No abnormal masses or fluid collections. The visualized upper abdomen shows hypodense lesions in the caudate lobe of the liver and spleen likely abscesses. IMPRESSION: 1. No evidence of pulmonary thromboembolism. 2. Focal area of consolidation in the medial segment of the right middle lobe. 3. Multiple ground glass opacities, centrilobular/tree in bud nodules as well as cavitary nodules diffusely scattered in bilateral lungs. 4. Findings likely infective etiology. 5. Few enlarged lymph nodes in the subcarinal and right paraesophageal regions. 6. The visualized upper abdomen shows hypodense lesions in the caudate lobe of the liver and spleen likely abscesses. A dedicated CT scan abdomen is advised Electronically signed by Lizet Valdez 06-03-2024 08:45 AM Abdomen/Pelvis CT 06/03/24 08:[address] WITH IV CONTRAST CT DOSE: 849.83 mGy.cm HISTORY: abnormalities of abdomen and spleen on CT chest TECHNIQUE: Multiaxial CT images of the abdomen and pelvis were performed following the IV administration of 90 cc of Optiray, A dose lowering technique was utilized adhering to the principles of ALARA. COMPARISON STUDY: Chest CT earlier today FINDINGS: Reticular nodular and groundglass opacities diffusely in the visualized lower lungs again seen, likely infectious/inflammatory etiology ABDOMEN: There is an 8 cm oval hypodense finding at the caudate lobe of the liver with peripheral discontinuous nodular enhancement. There is a 3 cm hypodense finding at the superior aspect of the spleen. These findings likely represent hemangiomas. Gallbladder is surgically absent. Pancreas and adrenal glands are unremarkable. Kidneys show no hydronephrosis. There are scattered atherosclerotic calcifications. No abdominal aortic aneurysm. Pelvis: Uterus and adnexa are grossly unremarkable. Urinary bladder is nondistended. There is residual contrast in the renal collecting systems, ureters, and urinary bladder from the contrast chest CT earlier today. No bowel inflammation or obstruction seen. No free fluid, free air, or abscess. No enlarged adenopathy. Osseous structures: There is degenerative disc disease at L5-S1. No acute osseous findings. IMPRESSION: Findings at the liver and spleen likely represent hemangiomas. Suggest follow-up nonurgent pre and postcontrast abdominal MRI with multiphase hemangioma protocol. ACT 112: Positive. There are findings on this exam that require communication between the performing entity and the patient following Patient Test Result Information Act ([place] Act 112) guidelines. The above report was generated using voice recognition software. It may contain grammatical, syntax or spelling errors. Electronically signed by: Shabbir Dubon M.D. 06/03/2024 9:43 AM 06/04/24 ECHOCARDIOGRAM Left ventricular systolic function is normal. There is moderate to severe concentric left ventricular hypertrophy. Mild proximal septal prominence. Grade I diastolic dysfunction. RVSP is normal. PG Care Time/CCT Total # of Minutes Spent Total Time Spent with Patient: Total time spent is greater than 50% in coordination of care (as documented) at patient's floor/unit and/or counseling patient: Coding Level of Care Code 13296 SUB INP/OBS CARE 3/50MIN Diagnoses Influenza A J10.1 Acute hypoxemic respiratory failure J96.01 Syncope R55 Hypertension I10 Hyperglycemia R73.9 Bacteremia R78.81 Diabetes E11.9
[2024-06-04] MEDS: cefTRIAXone SODIUM 2,000 MG/50 ML BAG IV SCH (08:48)
[2024-06-04] MEDS: AZITHROMYCIN 250 MG TAB PO SCH (08:49)
[2024-06-04] MEDS: amLODIPine BESYLATE 5 MG TAB PO SCH (08:49)
--- NOTE | 2024-06-04 08:58 | Pulmonology Progress Note ---
Date of Service June 04, 2024 Assessment & Plan (1) Influenza A: (2) Pneumonia: Plan Impression: 48-year-old immune suppressed female on Ocrevus and prednisone for MS admitted 2 weeks post influenza with findings on CT scans concerning for hematogenous spread. On CT of the abdomen and pelvis, the liver and splenic lesions may be consistent with hemangiomas. Blood cultures were positive for pneumococcus Recommendations: 1. Pneumococcal bacteremia. Infectious disease consultation pending. Currently on Rocephin and azithromycin. Rocephin should be adequate monotherapy imaging would likely transition to oral agents however will defer to infectious disease. 2. Hypoxemia: Continue supplemental oxygen titrated to keep saturations at or above 88%. 3. Influenza A: 2 weeks out. No indication for Tamiflu currently. At risk for superimposed staph infection and would defer to infectious disease as to whether or not antibiotic should be broadened. Steroids relatively contraindicated in the setting of influenza. Would recommend follow-up CT scan in 6 to 8 weeks 4. Asthma: Unclear if the patient actually has asthma or not. She is not bronchospastic currently. Can continue as needed DuoNebs. No indication for systemic steroids at this point in time. Thanks for the opportunity to participate in the care of this patient. Will continue to follow with you. Admission and Anticipated Discharge Date Admission Date: June 03, 2024 Subjective Patient seen and examined. EMR reviewed. The patient is sitting up eating breakfast. Her respiratory status is much improved today. She is much less short of breath. She is coughing but not really expectorating phlegm. She denies any fevers or chills overnight. Her tachycardia has resolved. She feels much better. Review of Systems 2 Review of Systems: All systems reviewed & are unremarkable except as noted in Subjective Physical Exam 2 Constitutional: WD/WN, vitals as above Neck: trachea midline, no thyromegaly Respiratory: no respiratory distress, no labored breathing, no cough and not tachypneic Auscultation: + rhonchi; no wheezes Cardiovascular: RRR, no murmur, no edema Gastrointestinal (Abdomen): normal bowel sounds, soft, nontender, no hepatosplenomegaly Musculoskeletal: Extremities: extremities normal to inspection Skin: no rashes, warm and dry Lymphatic: no cervical lymphadenopathy Results & Data Results & Data Vital Signs (Past 12 Hours) Vital Signs Temp Pulse Pulse Resp BP Pulse Ox O2 Del Method 06/04/24 07:48 36.4 C L 83 20 150/95 H 95 Nasal Cannula 06/04/24 07:06 94 H 06/04/24 06:21 36.4 C L 97 H 18 135/83 92 Nasal Cannula 06/04/24 04:02 36.6 C 84 18 112/64 93 Nasal Cannula 06/04/24 02:10 96 H 18 98 Nasal Cannula 06/03/24 23:36 94 H 20 92 Nasal Cannula 06/03/24 23:10 36.6 C 84 16 117/66 95 Nasal Cannula 06/03/24 21:47 100 H 06/03/24 21:00 Nasal Cannula 06/03/24 20:58 87 17 93 Room Air O2 Flow Rate 06/04/24 07:48 2 06/04/24 07:06 06/04/24 06:21 2 06/04/24 04:02 4 06/04/24 02:10 2 06/03/24 23:36 2 06/03/24 23:10 4 06/03/24 21:47 06/03/24 21:00 06/03/24 20:58 Laboratory Results 06/03/24 06:31 06/03/24 06:31 Microbiology 06/03/24 07:29 Blood Aerobic Blood Culture - Preliminary No growth in Aerobic bottle after 24 hours. 06/03/24 07:29 Blood Aerobic Blood Culture - Preliminary Gram positive cocci in chains PG Care Time/CCT Total # of Minutes Spent Total Time Spent with Patient: Total time spent is greater than 50% in coordination of care (as documented) at patient's floor/unit and/or counseling patient: Coding Level of Care Code 60223 SUB INP/OBS CARE 2/35MIN Diagnoses Influenza A J10.1 Pneumonia J18.9
[2024-06-04] MEDS ORDERED: dexAMETHasone 4 MG in SYRINGE 0 ML IV SCH (09:00)
[2024-06-04] MEDS ORDERED: AZITHROMYCIN 250 MG TAB PO SCH (09:00)
--- NOTE | 2024-06-04 09:08 | Infectious Disease Consult ---
Date of Consultation June 04, 2024 Assessment & Plan (1) Influenza: (2) Shortness of breath: (3) Acute hypoxemic respiratory failure: (4) Bacteremia: Plan This is a 48-year-old female with a past medical history of MS on Ocrevus and prednisone on who initially presented to the ED on 06/01 with shortness of breath,dyspnea on exertion and lightheadedness with coughing. Her symptoms have been ongoing for approximately 2 weeks. She was diagnosed with influenza approximately a week ago. Does not report receiving Tamiflu. She received DuoNebs with improvement in her symptoms she was discharged and instructed to follow-up with pulmonary and her PCP. She returned to the ED on 06/03 with worsening shortness of breath and reported that her symptoms was not improving with steroids. She endorsed diffuse chest pressure and pain especially with coughing. Cough was productive. She denied fever, chills, nauesea or vomiting. She reports sick contacts with her who also has upper respiratory symptoms. He is a supervisor ordnance truck installation and usually comes home on the weekends. She was staying in [facility] from July 2023 to March 2024 taking care of her elderly father. She denies other travel. He endorses a history of prior crack cocaine use about 15 years ago. Denies any current illicit drug activity. Denies history of IVDU. In the ED she is afebrile, pulse 99, RR 22, BP 181/112, O2 sats 91% on 2 L nasal cannula. Labs: WBC 17.09, platelets 405, BUN 9, creatinine 0.79, procalcitonin less than 0.02, lactate 2.3--> 1.4, hemoglobin A1c 8.9, MRSA nasal screen negative. Respiratory viral panel detected influenza A. Chest x-ray showed bilateral prominent bronchovascular markings. Right lower lobe medial ill- defined haziness. Chest CTA showed no PE. Focal area of consolidation in the medial segment of the right middle lobe, multiple groundglass opacities, centrilobular/tree-in-bud as well as cavitary nodules diffusely scattered in the bilateral lungs, few enlarged lymph nodes in the subcarinal and right paraesophageal regions. Upper abdomen showed hypodense lesions in the caudate lobe of the liver and spleen. CTAP showed findings in the liver and the spleen suggestive of hemangiomas. She was evaluated by Pulmonology who had concerns for possible hematogenous spread/septic emboli given her CT lung findings. TTE without valve vegetations. Blood culture now growing Streptococcus pneumoniae. She is currently on ceftriaxone, vancomycin and azithromycin. She remains on 2 L nasal cannula. ID consulted for c/f septic emboli. Microbiology: Blood cultures 06/03 Streptococcus pneumoniae ( per BCID) Blood cultures 06/04 pending Antibiotics: Ceftriaxone 06/03ongoing Vancomycin 06/03ongoing Azithromycin 06/03ongoing # Streptococcus Pneumoniae bacteremia # Acute Hypoxic respiratory failure # Multifocal airspace opacities: rule out Possible septic emboli vs Pneumonia # Leukocytosis, improving #Influenza A infection # Elevated Hgaic, 8.9 Discussion She has been feeling unwell with respiratory symptoms for approximately 2 weeks. She is found to have influenza A on PCR but is out of the window for Tamiflu. She likely has a superimposed bacterial infection of the lung. CT lung findings concerning for multifocal airspace opacities. Pattern also concerning for possible septic emboli. It is noted however that her procalcitonin< than 0.02. Blood cultures now positive for Streptococcus pneumoniae--> not a common organism associated with endocarditis however it is possible, and we should rule out. It is reassuring that the lesions on the liver and spleen initially seen on CT lung are more consistent with hemangiomas on CTAP than infarcts/emboli. Recommendations -Continue Ceftriaxone 2 g IV daily -Dced IV vanco as MRSA screen negative -Complete 3 days of azithromycin -Follow up Strep Pneum Susceptibility -Repeat BC ordered 06/04 -Collect and Follow up Sputum culture -Check SAEID , given possibility of of septic emboli on CT Lung and Bacteremia with neg TTE, ch D/w team Thank you for this consult. ID will continue to follow. Taylor Marie MD, MPH Infectious Disease [facility], [facility] Call [phone] with questions Consultation Information Consultation was provided via telemedicine using two-way real-time interactive telecommunication between the patient and the telemedicine provider. For the duration of the visit, the provider was performing the assessment from a different facility than the patient. This includesuse of bluetooth stethoscope forauscultationperformed by the telepresenter that the telemedicine provider can hear if described in the physical exam. Traveling Clerk contact information: Please call [facility] Call Center [phone]. (Phone Number For Physician Use Only) After establishing a telemedicine visit, patient was: Patient was verified with two unique identifiers Time Spent with Patient: Initial => 75 min History of Present Illness Reason for Consultation: C/F septic emboli Requesting Physician: ZAFAR Muro Attending Physician: William Henry MD History of Present Illness This is a 48-year-old female with a past medical history of MS on Ocrevus and prednisone on who initially presented to the ED on 06/01 with shortness of breath,dyspnea on exertion and lightheadedness with coughing. Her symptoms have been ongoing for approximately 2 weeks. She was diagnosed with influenza approximately a week ago. Does not report receiving Tamiflu. She received DuoNebs with improvement in her symptoms she was discharged and instructed to follow-up with pulmonary and her PCP. She returned to the ED on 06/03 with worsening shortness of breath and reported that her symptoms was not improving with steroids. She endorsed diffuse chest pressure and pain especially with coughing. Cough was productive. She denied fever, chills, nauesea or vomiting. She reports sick contacts with her who also has upper respiratory symptoms. He is a supervisor ordnance truck installation and usually comes home on the weekends. She was staying in [facility] from July 2023 to March 2024 taking care of her elderly father. She denies other travel. He endorses a history of prior crack cocaine use about 15 years ago. Denies any current illicit drug activity. Denies history of IVDU. In the ED she is afebrile, pulse 99, RR 22, BP 181/112, O2 sats 91% on 2 L nasal cannula. Labs: WBC 17.09, platelets 405, BUN 9, creatinine 0.79, procalcitonin less than 0.02, lactate 2.3--> 1.4, hemoglobin A1c 8.9, MRSA nasal screen negative. Respiratory viral panel detected influenza A. Chest x-ray showed bilateral prominent bronchovascular markings. Right lower lobe medial ill- defined haziness. Chest CTA showed no PE. Focal area of consolidation in the medial segment of the right middle lobe, multiple groundglass opacities, centrilobular/tree-in-bud as well as cavitary nodules diffusely scattered in the bilateral lungs, few enlarged lymph nodes in the subcarinal and right paraesophageal regions. Upper abdomen showed hypodense lesions in the caudate lobe of the liver and spleen. CTAP showed findings in the liver and the spleen suggestive of hemangiomas. She was evaluated by Pulmonology who had concerns for possible hematogenous spread/septic emboli given her CT lung findings. TTE without valve vegetations. Blood culture now growing Streptococcus pneumoniae. She is currently on ceftriaxone, vancomycin and azithromycin. She remains on 2 L nasal cannula. ID consulted for c/f septic emboli. Allergies Allergy/AdvReac Type Severity Reaction Status Date / Time nicotine [From Nicorette] Allergy Severe tongue Unverified 06/03/24 08:41 swells metformin Allergy sick Unverified 06/03/24 08:41 Home Medications Medication Instructions Recorded Confirmed Type ipratropium 0.5 mg-albuterol 3 mg 3 ml inhalation Q8H PRN wheezing 06/01/24 06/03/24 Rx (2.5 mg base)/3 mL nebulization #90 mL soln Ocrevus (Unknown Strength) See Rx Instructions .Route .COMPLEX 06/03/24 06/03/24 History amlodipine 5 mg tablet 5 mg PO DAILY 06/03/24 06/03/24 History lisinopril 10 mg tablet 10 mg PO DAILY 06/03/24 06/03/24 History Patient History Social History Smoking Status: Former smoker Hx Alcohol Use: No Hx Substance Use: No Preferred Language: Tajik Communication Ability: Effective Behavioral Health Associate Required: No Current Living Situation: Spouse Feels Safe at Home: Yes Assistive Devices: None Review of System Pertinent positives as per hpi Physical Exam Physical Exam: General- mildly short of breath, on 2lNC , NAD Neck- supple HEENT- ATNC, anicteric sclera Lungs- Mildly short of breath, basilar crackles Abdomen- soft, not distended Extremities- NO LE edema, nails painted, can not aeval nailbeds for evidence of emboli Neuro-AAO times 2 Psych- Cooperative Results & Data Vital Signs (Past 12 Hours) Vital Signs Temp Pulse Pulse Resp BP Pulse Ox O2 Del Method 06/04/24 07:48 36.4 C L 83 20 150/95 H 95 Nasal Cannula 06/04/24 07:06 94 H 06/04/24 06:21 36.4 C L 97 H 18 135/83 92 Nasal Cannula 06/04/24 04:02 36.6 C 84 18 112/64 93 Nasal Cannula 06/04/24 02:10 96 H 18 98 Nasal Cannula 06/03/24 23:36 94 H 20 92 Nasal Cannula 06/03/24 23:10 36.6 C 84 16 117/66 95 Nasal Cannula 06/03/24 21:47 100 H O2 Flow Rate 06/04/24 07:48 2 06/04/24 07:06 06/04/24 06:21 2 06/04/24 04:02 4 06/04/24 02:10 2 06/03/24 23:36 2 06/03/24 23:10 4 06/03/24 21:47 Laboratory Results Laboratory Results - last 48 hr 06/03/24 06/03/24 06/03/24 05:45 06:30 06:31 WBC 17.09 H RBC 4.73 Hgb 14.0 POC Hgb Hct 41.4 POC Hct MCV 87.5 MCH 29.6 MCHC 33.8 RDW Std Deviation 48.9 H RDW Coeff of Sal 15.1 H Plt Count 405 H MPV 9.9 Immature Gran % (Auto) 3.2 Neut % (Auto) 74.3 Lymph % (Auto) 9.4 [place] % (Auto) 12.6 Eos % (Auto) 0.2 Baso % (Auto) 0.3 Neut # (Auto) 12.69 H Lymph # (Auto) 1.61 [place] # (Auto) 2.16 H Eos # (Auto) 0.03 Baso # (Auto) 0.05 Immature Gran # (Auto) 0.55 H PT 10.6 INR 1.0 VBG pH 7.38 VBG pCO2 50 VBG pO2 23 VBG HCO3 30 VBG O2 Saturation < 60.0 VBG Base Excess 3.4 POC Sodium Sodium 134 L POC Potassium Potassium 4.2 POC Chloride Chloride 95 L Carbon Dioxide 30 POC Total CO2 Anion Gap 9 POC Anion Gap POC BUN BUN 9 Creatinine 0.79 POC Creatinine Est Cr Clr Drug Dosing 83.8 eGFR 91.64 BUN/Creatinine Ratio 11.4 Glucose 283 H POC Glucose 273 H POC Glucose (other) Lactate Calcium 10.0 POC Ioniz Calcium Mariam Magnesium 1.8 Total Bilirubin 0.8 AST 17 ALT 31 Alkaline Phosphatase 81 Troponin I High Sens 22.4 H D B-Natriuretic Peptide Total Protein 7.2 Albumin 4.3 Globulin 2.9 Albumin/Globulin Ratio 1.5 Procalcitonin < 0.02 Urine Color Urine Appearance Urine pH Ur Specific [place] Urine Protein Urine Glucose (UA) Urine Ketones Urine Blood Urine Nitrite Urine Bilirubin Urine Urobilinogen Ur Leukocyte Esterase Urine WBC (Auto) Urine RBC (Auto) U Hyaline Cast (Auto) U Epithel Cells (Auto) Urine Bacteria (Auto) Nasal Screen MRSA (PCR) Adenovirus (PCR) Not Detected B. pertussis DNA (PCR) Not Detected B.parapertussis DNA PCR Not Detected C. pneumoniae DNA (PCR) Not Detected Coronavirus OC43 (PCR) Not Detected Coronavirus HKU1 (PCR) Not Detected Coronavirus 229E (PCR) Not Detected SARS-CoV-2 (PCR) Not Detected Coronavirus NL63 (PCR) Not Detected Human Metapneumovir PCR Not Detected Influenza A Untype (PCR) DETECTED A Influenza Type B (PCR) Not Detected M. pneumoniae (PCR) Not Detected Parainfluenza 1 (PCR) Not Detected Parainfluenza 2 (PCR) Not Detected Parainfluenza 3 (PCR) Not Detected Parainfluenza 4 (PCR) Not Detected RSV (PCR) Not Detected Entero/Rhino (PCR) Not Detected Streptococcus sp PCR Strep pneumoniae (PCR) Bld Cult ID Panel PCR 06/03/24 06/03/24 06/03/24 06:45 07:29 07:49 WBC RBC Hgb POC Hgb 15.6 Hct POC Hct 46 MCV MCH MCHC RDW Std Deviation RDW Coeff of Sal Plt Count MPV Immature Gran % (Auto) Neut % (Auto) Lymph % (Auto) [place] % (Auto) Eos % (Auto) Baso % (Auto) Neut # (Auto) Lymph # (Auto) [place] # (Auto) Eos # (Auto) Baso # (Auto) Immature Gran # (Auto) PT INR VBG pH VBG pCO2 VBG pO2 VBG HCO3 VBG O2 Saturation VBG Base Excess POC Sodium 133 L Sodium POC Potassium 4.1 Potassium POC Chloride 95 L Chloride Carbon Dioxide POC Total CO2 29 Anion Gap POC Anion Gap 14.0 L POC BUN 7 BUN Creatinine POC Creatinine 0.8 Est Cr Clr Drug Dosing eGFR BUN/Creatinine Ratio Glucose POC Glucose POC Glucose (other) 270 H Lactate 2.3 H* Calcium POC Ioniz Calcium Mariam 1.20 Magnesium Total Bilirubin AST ALT Alkaline Phosphatase Troponin I High Sens B-Natriuretic Peptide 177 H Total Protein Albumin Globulin Albumin/Globulin Ratio Procalcitonin Urine Color Yellow Urine Appearance Clear Urine pH 6.0 Ur Specific [place] 1.026 Urine Protein Trace H Urine Glucose (UA) 2+ H Urine Ketones Negative Urine Blood Trace H Urine Nitrite Negative Urine Bilirubin Negative Urine Urobilinogen Negative Ur Leukocyte Esterase Negative Urine WBC (Auto) 0-5 Urine RBC (Auto) 3-5 H U Hyaline Cast (Auto) 0-2 U Epithel Cells (Auto) 0-2 Urine Bacteria (Auto) None Seen Nasal Screen MRSA (PCR) Adenovirus (PCR) B. pertussis DNA (PCR) B.parapertussis DNA PCR C. pneumoniae DNA (PCR) Coronavirus OC43 (PCR) Coronavirus HKU1 (PCR) Coronavirus 229E (PCR) SARS-CoV-2 (PCR) Coronavirus NL63 (PCR) Human Metapneumovir PCR Influenza A Untype (PCR) Influenza Type B (PCR) M. pneumoniae (PCR) Parainfluenza 1 (PCR) Parainfluenza 2 (PCR) Parainfluenza 3 (PCR) Parainfluenza 4 (PCR) RSV (PCR) Entero/Rhino (PCR) Streptococcus sp PCR DETECTED A Strep pneumoniae (PCR) DETECTED A Bld Cult ID Panel PCR See PCR Comment 06/03/24 06/03/24 06/03/24 09:24 15:12 16:51 WBC RBC Hgb POC Hgb Hct POC Hct MCV MCH MCHC RDW Std Deviation RDW Coeff of Sal Plt Count MPV Immature Gran % (Auto) Neut % (Auto) Lymph % (Auto) [place] % (Auto) Eos % (Auto) Baso % (Auto) Neut # (Auto) Lymph # (Auto) [place] # (Auto) Eos # (Auto) Baso # (Auto) Immature Gran # (Auto) PT INR VBG pH VBG pCO2 VBG pO2 VBG HCO3 VBG O2 Saturation VBG Base Excess POC Sodium Sodium POC Potassium Potassium POC Chloride Chloride Carbon Dioxide POC Total CO2 Anion Gap POC Anion Gap POC BUN BUN Creatinine POC Creatinine Est Cr Clr Drug Dosing eGFR BUN/Creatinine Ratio Glucose POC Glucose 364 H* 169 H POC Glucose (other) Lactate 1.4 Calcium POC Ioniz Calcium Mariam Magnesium Total Bilirubin AST ALT Alkaline Phosphatase Troponin I High Sens 14.4 H D B-Natriuretic Peptide Total Protein Albumin Globulin Albumin/Globulin Ratio Procalcitonin Urine Color Urine Appearance Urine pH Ur Specific [place] Urine Protein Urine Glucose (UA) Urine Ketones Urine Blood Urine Nitrite Urine Bilirubin Urine Urobilinogen Ur Leukocyte Esterase Urine WBC (Auto) Urine RBC (Auto) U Hyaline Cast (Auto) U Epithel Cells (Auto) Urine Bacteria (Auto) Nasal Screen MRSA (PCR) Adenovirus (PCR) B. pertussis DNA (PCR) B.parapertussis DNA PCR C. pneumoniae DNA (PCR) Coronavirus OC43 (PCR) Coronavirus HKU1 (PCR) Coronavirus 229E (PCR) SARS-CoV-2 (PCR) Coronavirus NL63 (PCR) Human Metapneumovir PCR Influenza A Untype (PCR) Influenza Type B (PCR) M. pneumoniae (PCR) Parainfluenza 1 (PCR) Parainfluenza 2 (PCR) Parainfluenza 3 (PCR) Parainfluenza 4 (PCR) RSV (PCR) Entero/Rhino (PCR) Streptococcus sp PCR Strep pneumoniae (PCR) Bld Cult ID Panel PCR 06/03/24 06/03/24 06/04/24 18:42 20:30 08:29 WBC RBC Hgb POC Hgb Hct POC Hct MCV MCH MCHC RDW Std Deviation RDW Coeff of Sal Plt Count MPV Immature Gran % (Auto) Neut % (Auto) Lymph % (Auto) [place] % (Auto) Eos % (Auto) Baso % (Auto) Neut # (Auto) Lymph # (Auto) [place] # (Auto) Eos # (Auto) Baso # (Auto) Immature Gran # (Auto) PT INR VBG pH VBG pCO2 VBG pO2 VBG HCO3 VBG O2 Saturation VBG Base Excess POC Sodium Sodium POC Potassium Potassium POC Chloride Chloride Carbon Dioxide POC Total CO2 Anion Gap POC Anion Gap POC BUN BUN Creatinine POC Creatinine Est Cr Clr Drug Dosing eGFR BUN/Creatinine Ratio Glucose POC Glucose 87 255 H POC Glucose (other) Lactate Calcium POC Ioniz Calcium Mariam Magnesium Total Bilirubin AST ALT Alkaline Phosphatase Troponin I High Sens B-Natriuretic Peptide Total Protein Albumin Globulin Albumin/Globulin Ratio Procalcitonin Urine Color Urine Appearance Urine pH Ur Specific [place] Urine Protein Urine Glucose (UA) Urine Ketones Urine Blood Urine Nitrite Urine Bilirubin Urine Urobilinogen Ur Leukocyte Esterase Urine WBC (Auto) Urine RBC (Auto) U Hyaline Cast (Auto) U Epithel Cells (Auto) Urine Bacteria (Auto) Nasal Screen MRSA (PCR) Negative Adenovirus (PCR) B. pertussis DNA (PCR) B.parapertussis DNA PCR C. pneumoniae DNA (PCR) Coronavirus OC43 (PCR) Coronavirus HKU1 (PCR) Coronavirus 229E (PCR) SARS-CoV-2 (PCR) Coronavirus NL63 (PCR) Human Metapneumovir PCR Influenza A Untype (PCR) Influenza Type B (PCR) M. pneumoniae (PCR) Parainfluenza 1 (PCR) Parainfluenza 2 (PCR) Parainfluenza 3 (PCR) Parainfluenza 4 (PCR) RSV (PCR) Entero/Rhino (PCR) Streptococcus sp PCR Strep pneumoniae (PCR) Bld Cult ID Panel PCR Diagnostic Findings Microbiology 06/03/24 07:29 Blood Aerobic Blood Culture - Preliminary No growth in Aerobic bottle after 24 hours. 06/03/24 07:29 Blood Aerobic Blood Culture - Preliminary Gram positive cocci in chains Chest X-Ray 06/03/24 05:38 EXAM: XR chest 1V portable CLINICAL HISTORY: SOB, ASTHMA, FLU. TECHNIQUE: An X-ray image of the chest is obtained in AP projection. COMPARISON: Prior study dated 06/01/2024. FINDINGS: Pulmonary Parenchyma: Bilateral prominent bronchovascular markings, hilar vessels on the background of diffuse ground glass haziness Right lower lobe medial ill-defined haziness (new finding) No evidence of pleural effusion or pleural thickening. Heart and Mediastinum: Heart size and shape are normal. No mediastinal widening or masses. No hilar or mediastinal lymphadenopathy. Bony Thorax: Bony thorax appears intact without fractures or deformities. Soft Tissues: Soft tissues overlying the chest wall are unremarkable. IMPRESSION: 1. Bilateral prominent bronchovascular markings, hilar vessels on background of diffuse ground glass haziness (stable). 2. Right lower lobe medial ill-defined haziness (new finding), Clinical and lab correlation is advised to rule out pulmonary infection. Electronically signed by Lizet Valdez 06-03-2024 06:26 AM Chest CTA 06/03/24 06:31 EXAM: CT angio chest PE protocol CLINICAL HISTORY: Patient was here on sunday, and woke up this morning and symptoms were worsening. patient was here on sunday and was positive for the flu TECHNIQUE: Contiguous 3.[address] angiographic images of the chest were acquired with the administration of intravenous contrast (112ml opti 320). Coronal and sagittal reconstructions were obtained. One of these 3D techniques was utilized: Maximum Intensity Pixel (MIP), 3D Reconstructed Images, Volume Rendered Images, Surface Shaded Rendering. One of the following dose reduction techniques were utilized for this exam: Automated exposure control, adjustment of the mA and/or kV according to patient size, and use of iterative reconstruction. COMPARISON: Prior X-ray dated 06/03/2024 for comparison. FINDINGS: Aorta: The thoracic aorta is normal in caliber. No evidence of aneurysm, dissection, or significant atherosclerotic changes. Aortic arch and descending thoracic aorta are unremarkable. Pulmonary Arteries: Pulmonary arteries are normal in size and opacification. No evidence of pulmonary embolism. No stenosis or filling defects. Superior Vena Cava (SVC) and Inferior Vena Cava (IVC): Normal opacification and caliber. No evidence of thrombus or obstruction. Coronary Arteries: Coronary arteries are well-opacified. No significant stenosis or atherosclerotic changes. Mediastinum: Few enlarged lymph nodes in the subcarinal and right paraesophageal regions. Normal appearance of the thymus. Heart: Normal size and morphology of the heart. No pericardial effusion. Lungs: Focal area of consolidation in the medial segment of the right middle lobe. Multiple ground glass opacities, centrilobular as well as cavitary nodules diffusely scattered in bilateral lungs. Centrilobular emphysema in bilateral lungs. No pleural effusion or thickening. Bones: No fractures or lytic/sclerotic lesions of the visualized bony structures. Normal alignment and bone density. Soft Tissues: Normal appearance of the visualized soft tissues. No abnormal masses or fluid collections. The visualized upper abdomen shows hypodense lesions in the caudate lobe of the liver and spleen likely abscesses. IMPRESSION: 1. No evidence of pulmonary thromboembolism. 2. Focal area of consolidation in the medial segment of the right middle lobe. 3. Multiple ground glass opacities, centrilobular/tree in bud nodules as well as cavitary nodules diffusely scattered in bilateral lungs. 4. Findings likely infective etiology. 5. Few enlarged lymph nodes in the subcarinal and right paraesophageal regions. 6. The visualized upper abdomen shows hypodense lesions in the caudate lobe of the liver and spleen likely abscesses. A dedicated CT scan abdomen is advised Electronically signed by Lizet Valdez 06-03-2024 08:45 AM Abdomen/Pelvis CT 06/03/24 08:[address] WITH IV CONTRAST CT DOSE: 849.83 mGy.cm HISTORY: abnormalities of abdomen and spleen on CT chest TECHNIQUE: Multiaxial CT images of the abdomen and pelvis were performed following the IV administration of 90 cc of Optiray, A dose lowering technique was utilized adhering to the principles of ALARA. COMPARISON STUDY: Chest CT earlier today FINDINGS: Reticular nodular and groundglass opacities diffusely in the visualized lower lungs again seen, likely infectious/inflammatory etiology ABDOMEN: There is an 8 cm oval hypodense finding at the caudate lobe of the liver with peripheral discontinuous nodular enhancement. There is a 3 cm hypodense finding at the superior aspect of the spleen. These findings likely represent hemangiomas. Gallbladder is surgically absent. Pancreas and adrenal glands are unremarkable. Kidneys show no hydronephrosis. There are scattered atherosclerotic calcifications. No abdominal aortic aneurysm. Pelvis: Uterus and adnexa are grossly unremarkable. Urinary bladder is nondistended. There is residual contrast in the renal collecting systems, ureters, and urinary bladder from the contrast chest CT earlier today. No bowel inflammation or obstruction seen. No free fluid, free air, or abscess. No enlarged adenopathy. Osseous structures: There is degenerative disc disease at L5-S1. No acute osseous findings. IMPRESSION: Findings at the liver and spleen likely represent hemangiomas. Suggest follow-up nonurgent pre and postcontrast abdominal MRI with multiphase hemangioma protocol. ACT 112: Positive. There are findings on this exam that require communication between the performing entity and the patient following Patient Test Result Information Act ([place] Act 112) guidelines. The above report was generated using voice recognition software. It may contain grammatical, syntax or spelling errors. Electronically signed by: Shabbir Dubon M.D. 06/03/2024 9:43 AM Medications Administered Home Medications Medication Instructions Recorded Confirmed Last Taken ipratropium 0.5 mg-albuterol 3 mg 3 ml inhalation Q8H PRN wheezing 06/01/24 06/03/24 Unknown (2.5 mg base)/3 mL nebulization #90 mL soln Ocrevus (Unknown Strength) See Rx Instructions .Route .COMPLEX 06/03/24 06/03/24 Unknown amlodipine 5 mg tablet 5 mg PO DAILY 01/06/03/24 06/01/24 lisinopril 10 mg tablet 10 mg PO DAILY 06/03/24 06/03/24 06/01/24 Active Medications Generic Name Dose Route Start Last Admin Trade Name Virgilio PATEL Reason Stop Dose Admin Albuterol 3 ml 06/03/24 13:44 06/04/24 07:45 Albut/Ipratrop 3mg/0.5mg Neb 3 Ml Vial NEB 07/03/24 13:43 Not Given Q4R JACKSON Protocol Amlodipine Besylate 5 mg 06/04/24 09:00 06/04/24 08:49 Amlodipine Besylate 5 Mg Tab PO 07/04/24 08:59 5 mg DAILY JACKSON Administration Guaifenesin 1,200 mg 06/03/24 10:55 06/04/24 08:48 Guaifenesin 600 Mg Tabcr PO 07/03/24 10:54 1,200 mg Q12 JACKSON Administration Ceftriaxone Sodium 2,000 mg in 50 mls @ 100 mls/hr 06/04/24 08:00 06/04/24 08:48 Rocephin IV 06/09/24 07:59 100 mls/hr Q24H JACKSON Administration Vancomycin HCl 1,000 mg in 270 mls @ 200 mls/hr 06/04/24 06:00 06/04/24 08:04 Vancomycin Hcl IV 06/09/24 05:59 Infused Q12H JACKSON Infusion Insulin Aspart 0 units 06/03/24 13:44 06/04/24 08:53 Insulin Aspart Per Unit Charge SC 07/03/24 13:43 7 units ACHS JACKSON Administration
[2024-06-04] MEDS: ENOXAPARIN INJ 40 MG/0.4 ML SYR SQ SCH (09:19)
[2024-06-04] MEDS: lisinopril 10 MG TAB PO SCH (09:19)
[2024-06-04 09:53] LABS: Basophils # (auto) 0.05 K/uL (0.00-0.20); Basophils % (auto) 0.4 %; Eosinophils # (auto) 0.03 K/uL (0.00-0.50); Eosinophils % (auto) 0.2 %; Hematocrit (blood only) 40.3 % (37.0-47.0); Hemoglobin 13.4 g/dl (12.0-16.0); Immature Granulocytes # (auto) 0.62 K/uL (0.01-0.20); Immature Granulocytes % (auto) 4.8 %; Lymphocytes # (auto) 1.86 K/uL (1.20-3.40); Lymphocytes % (auto) 14.4 %; Mean Corpuscular Hemoglobin 29.1 pg (25.0-34.0); Mean Corpuscular Hgb Conc 33.3 g/dL (32.0-36.0); Mean Corpuscular Volume 87.6 fL (80.0-100.0); Mean Platelet Volume 9.7 fL (9.4-12.4); Monocytes # (auto) 1.38 K/uL (0.11-0.59); Monocytes % (auto) 10.7 %; Neutrophils # (auto) 8.96 K/uL (1.40-6.50); Neutrophils % (auto) 69.5 %; Platelet Count 417 K/uL (130-400); RDW Coefficient of Variation 15.2 % (11.5-14.5); RDW Standard Deviation 48.7 fL (36.4-46.3)
[2024-06-04 10:16] LABS: Calcium 9.7 mg/dl (8.6-10.3); Creatinine Clr Calc Pharmacy 90.7 ml/min; Potassium 4.1 mmol/L (3.5-5.1)
[2024-06-04 10:29] LABS: Estimated Average Glucose 209 mg/dl; Hemoglobin A1C 8.9 % (4.5-5.6)
[2024-06-04] MEDS ORDERED: PHARMACY GLYCEMIC MGMT CONSULT PRN (11:48)
--- NOTE | 2024-06-04 13:56 | Pharmacy Report ---
Pharmacy PK ABX Note - Date of Service June 04, 2024 - Assessment and Plan Assessment 48 year old F receiving Vancomycin, Ceftriaxone and Azithromycin for treatment of pneumonia. * Day #2 of antimicrobial therapy. ID consulted. * Flu A positive. Outside of window for Tamiflu. * MRSA swab negative and blood cultures (1 of 2) growing Streptococcus pneumoniae, repeat blood cultures obtained (06/04) * Discussed with hospitalist PAMELA. Awaiting ID recommendations at this time. * Originally ordered 1 g IV q12h, regimen is now predicted to result in potentially subtherapeutic AUC/DADA Plan Vancomycin * Loading dose: 1500 mg IV x 1 * Maintenance dose: 1000 mg IV every 12 hours x 1, now changed to 1250 mg IV q12h * Regimen is predicted to achieve target AUC/DADA of 400-600 mg/L.hr * Random level ordered for: 06/05/24 Pharmacy will continue to follow and will adjust dose/frequency as necessary. Thank you. Pharmacy has transitioned to AUC monitoring for vancomycin. AUC/DADA is the preferred PK/PD target and is associated with decreased risk of nephrotoxicity compared to traditional trough targets.
--- NOTE | 2024-06-04 14:03 | Pharmacy Report ---
Pharmacy Glycemic Short Note 2 - Date of Service June 04, 2024 - Glycemic Short BSG Results (Last 24 hours): 06/03/24 06/03/24 06/03/24 15:12 16:51 20:30 Glucose POC Glucose 364 H* 169 H 87 06/04/24 06/04/24 06/04/24 08:29 09:21 12:25 Glucose 254 H POC Glucose 255 H 102 H OUTPATIENT ANTIDIABETIC REGIMEN: * N/A HbA1c: 8.9% (06/04/24) ASSESSMENT: * PE is a 48 year old female admitted with pneumonia (positive influenza A, cavitary nodules noted bilaterally, and multiple ground glass opacities) * Pertinent PMH includes MS, asthma, and hypertension. Now with Streptococcus pneumoniae bacteremia (vancomycin/ceftriaxone/azithromycin at this time) * Hyperglycemic on presentation to hospital and with elevated HbA1c, of note patient recently prescribed prednisone * Blood sugars have been labile since time of presentation. Pharmacy consulted today for glycemic management. * Will be conservative with initial insulin regimen, given significant correction of higher blood sugars (364 -> 87 mg/dL, 255 mg/dL -> 102 mg/dL) PLAN FOR INPATIENT GLYCEMIC CONTROL: * Basal insulin * Hold basal at this time * Reassess in AM * Bolus insulin * NovoLog per scale ACHS or Q6hrs while NPO * Goal Range: Low 120 mg/dL - High 160 mg/dL * Correction Factor: 50 mg/dL/unit * Nutritional / Prandial insulin per carb ratio of 1 unit per 20 grams CHO consumed
[2024-06-04] MEDS: VANCOMYCIN HCL 1,250 MG in SODIUM CHLORIDE 0.9% 250 ML IV SCH (14:39)
[2024-06-04] MEDS: ALBUT/IPRATROP 3MG/0.5MG NEB 3 ML VIAL NEB PRN (14:48)
[2024-06-04] MEDS: amLODIPine BESYLATE 5 MG TAB PO ONE (18:21)
[2024-06-04] MEDS: SODIUM CHLORIDE 0.9% 500 ML IV SCH (18:47)
[2024-06-04] MEDS: INFLUENZA VACC TS2024-25(6m+)/PF (IIV3) 0.5mL Syr IM ONE (19:28)
[2024-06-04] MEDS: PNEUMOCOCCAL VACCINE (PCV20) 20-VAL CONJ-DIP CRM/PF 0.5 ML SYR IM ONE (19:29)
[2024-06-04] MEDS: FAMOTIDINE 20MG IV PUSH 20 MG/5 ML SYR IV SCH (20:09)
[2024-06-05] MEDS ORDERED: VANCOMYCIN LEVEL ONE (05:00)
[2024-06-05 07:04] LABS: Hematocrit (blood only) 36.7 % (37.0-47.0); Hemoglobin 12.7 g/dl (12.0-16.0); Mean Corpuscular Hemoglobin 30.3 pg (25.0-34.0); Mean Corpuscular Hgb Conc 34.6 g/dL (32.0-36.0); Mean Corpuscular Volume 87.6 fL (80.0-100.0); Mean Platelet Volume 9.5 fL (9.4-12.4); Platelet Count 463 K/uL (130-400); RDW Coefficient of Variation 14.6 % (11.5-14.5); RDW Standard Deviation 46.6 fL (36.4-46.3); Red Blood Count 4.19 M/uL (4.20-5.40); White Blood Count 12.24 K/ul (4.8-10.8)
[2024-06-05 07:15] LABS: BUN Creatinine Ratio 12.2 (10-20); Calcium 9.4 mg/dl (8.6-10.3); Creatinine Clr Calc Pharmacy 89.4 ml/min; Potassium 4.1 mmol/L (3.5-5.1)
[2024-06-05 07:26] LABS: Basophils # (auto) 0.05 K/uL (0.00-0.20); Basophils % (auto) 0.4 %; Eosinophils # (auto) 0.08 K/uL (0.00-0.50); Eosinophils % (auto) 0.7 %; Immature Granulocytes # (auto) 0.64 K/uL (0.01-0.20); Immature Granulocytes % (auto) 5.2 %; Lymphocytes # (auto) 2.17 K/uL (1.20-3.40); Lymphocytes % (auto) 17.7 %; Monocytes # (auto) 1.51 K/uL (0.11-0.59); Monocytes % (auto) 12.3 %; Neutrophils # (auto) 7.79 K/uL (1.40-6.50); Neutrophils % (auto) 63.7 %
--- NOTE | 2024-06-05 07:58 | Hospitalist Progress Note ---
Date of Service June 05, 2024 Assessment & Plan (1) Influenza A: (2) Acute hypoxemic respiratory failure: (3) Syncope: (4) Hypertension: (5) Hyperglycemia: (6) Bacteremia: (7) Diabetes: Plan if a 48F with a PMHx of asthma, HTN and MS (immunocomp on ocrevous, last infusion in Mar), and recent dx of Influenza A who presents to the ED with continued shortness of breath and possible syncopal episodes at home. CTA chest showed no PE, multiple ground glass opacities, cavitary nodules diffusely scattered in bilateral lungs and a few enlarged lymph nodes. Was given steroids, nebs and antibiotics. in ER w/ need for 4L NC to maintain saturations #Influenza A/ acute hypoxic respiratory failure/PNA --Sepsis with severe sepsis due to Streptococcus pneumoniae with acute hypoxic respiratory failure, POA Outside window for tamiflu (notable wasn't given OSH unclear why) WBC 17k Ceftriaxone/vanco/azithro abx Pulm/ID consulted, concerns for hematageous spread on CT chest (neg for PE) ID discontinued vancomycin, remains on Ceftriaxone/Azithromycin Blood cx 06/03 strep pneumoniae Repeat blood cx pending 06/04 and remain NGTD Sputum cx pending WBC 12.2k, afebrile SAEID today without vegetation/mass, doesn't rule out endocarditis but reassuring. Discussed w/ ID and interesting her procal was negative but does sound like pneumonia as culprit and CXR today negative (checking procal in AM) but will plan to continue current abx/follow up blood/sputum cx and possible if cleared could utilize high dose amoxicillin to complete 2 week course at dc. No hx IVDU (notable crack use >15yrs ago, self admitted by patient) Continue pulmonary tiolet, pulmonology added budesonide/formotorol nebs BID today, tessalon pearls for cough Supplemental O2 titration, plan for 2step at dc pending needs PT/OT consults placed DVT proph: Lovenox SQ, Pepcid for GI proph Hopeful dc in 48hr or so pending clearance in blood cultures. Will need f/u Ct chest in 6-8 wks outpatinet. Bacteremia positive blood as above from 06/03, repeat blood cx without growth and monitoring. ID consulted and recs as above, neg SAEID this morning. Possible high dose Amox at dc #Possible Syncope/ Elevated troponin 2 episodes at home, suspect related to +orthostatic VS and above bacteremia/superimposed bacterial pneumonia following influenza infection. ECHO as noted above/SAEID today 500cc NSS on 06/04 for + orthostatics, Na improved/normalized with correction for Glu BUN/Cr stable 9.0.74 and will moniotr #Hyperglycemia/Diabetes Mellitus Glucose 283 on admission, suspect 2nd to recent steroids and acute illness above. No anion gap/acidosis on labs but did have hx DM in past and was improved with diet/weight loss, intolerance to metformin but did take ozempic A1c 8.9 Pharmacy consulted/managing, BSGs improving DM educator saw today, plan for Enrico in AM Possbile ozempic at mi but monitoring needs, Enrico to be placed in AM to have closer monitoring. No steroids for above at present but was on prior week for +flu F/u outpatient will be required #HTN Significant elevations on admission but hadn't taken home meds On lisinopril 10mg, amlodipine 5mg daily. Additional 5mg amlodipine last evening 06/04 provided for elevated BP and did have elevation during procedure today but otherwise MUCH better controlled. Notable severe concentric LVH on echo and will monitor to increase amlodipine/add low dose HCTZ given and benefit CCB/thiazides for BP but will defer HCTZ for now given + orthostatics day prior and monitor #abnormal CT scan findings 8cm hypodense finding in lobe of liver and 3cm hypodense finding of spleen Pt aware of above 06/03 , will need nonurgent pre and postcontrast abdominal MRI with multiphase hemangioma protocol ed Will also need outpt CT chest 6-8wks #Nicotine Dependence hc of /2 ppd - stopped smoking with recent illness. declines nicotine patch. Encourage cessation. DVT proph: Lovenox SQ continued while inpatient --notable review of medications listing "non-administered" for this morning with reason "patient is ambulatory". Message sent to primary nurse for discussion and should be given sharyn given presentation/bacteremia and concerns for septic emoboli on admission. Will speak to patient/discuss importance if needed. To be given now and will speak with patient if any questions/concerns issues and can retime for q24hr to prevent repeat dosing close together. Dispo: continued inpatient stay on CTX/azithro, repeat blood cultures pending and case discussed with ID. If blood cx cleared quickly, could consider high dose Amox to complete TWO WEEK COURSE at dc Budesonide/formoterol nebs added by pulm, possible asthma, no systemic steroids needed at this time/CXR neg/no wheezing. Appreciate assistance. Will need CT chest 6-8 wks outpatient F/u BSG/ozempic vs other at mi, Enrico in AM planned Will need nonemergent MRI abd for hemangioma, will consider in AM now that SAEID done/monitor PT/OT consulted while inpatient Admission and Anticipated Discharge Date Admission Date: June 03, 2024 Supervising Physician Co-Signing Physician Notes The patient was not seen by me. The chart was reviewed. Case discussed with ZAFAR Campbell. Agree with assessment and plan Subjective Eval this morning around lunch, sitting up in bed. +sputum , clear in color today. Repeat CXR negative consolidation, on 2L. Reports last breathing treatment prior to SAEID different/felt good, was formoterol, added BID by pulm and will continue w/ new budesodnide this evening. No wheezing on exam. She would like to ambulate in room/see how breathing goes, RN to do in room unless can tolerate mask for halls given contact for influenze. SAEID neg for vegetation, repeat blood cx pending and reports sputum sample this morning and will follow up. Did discuss A1c c/w DM, also some effect recent steroids and will cover with insulin/come up with plan prior to dc Discussed continued inpatient stay likely til Sunday AM pending course/repeat cx, agreeable to therapy evals and will ensure 2step prior to dc if any needs and can be arranged. Discussed will need repeat CT chest in follow up, 6-8wks. Questions/concerns addressed at this time. Physical Exam 2 Physical Exam: General: 48yo female sitting up in bed, NAD, +cough, clear sputum production, on 2L NC HEENT: head atraumatic, normocephalic, mm IMPROVED/moist, trachea midline Resp: even/unlabored, no wheezing/rales, on 2L NC (reports got neb prior to SAEID w/ improvement), no tachypnea, +cough CV: regular, rates stable on telemetry, no significant m/r/g, no pitting edema, calves nontender GI: +BS, soft/NT no jean baptiste MSK/Neuro: not confused, answering questions appropriately, moves all extremities, no focal loss of strength Psych: AOx3, cooperative/pleasant during encounter Results & Data Results & Data Vital Signs (Past 12 Hours) Vital Signs Temp Pulse Pulse Pulse Resp BP Pulse Ox 06/05/24 07:36 06/05/24 07:33 36.3 C L 92 H 18 127/82 92 06/05/24 07:17 88 06/05/24 03:58 36.7 C 93 H 16 119/76 96 06/04/24 22:29 36.6 C 86 18 127/74 95 06/04/24 21:55 84 06/04/24 21:11 06/04/24 21:08 91 H 18 96 O2 Del Method O2 Flow Rate 06/05/24 07:36 Nasal Cannula 2 06/05/24 07:33 Nasal Cannula 1 06/05/24 07:17 06/05/24 03:58 Room Air 06/04/24 22:29 Nasal Cannula 1 06/04/24 21:55 06/04/24 21:11 Nasal Cannula 1 06/04/24 21:08 Nasal Cannula 1 Laboratory Results 06/05/24 06:40 06/05/24 06:40 Mag 2.0 Diagnostic Findings Chest X-Ray 06/05/24 08:15 XR chest 1V portable CLINICAL HISTORY: cough TECHNIQUE: Single frontal radiograph of the chest was obtained. Comparison: Comparison is made to chest radiograph 06/03/2024 FINDINGS: No lines and tubes are seen. The cardiomediastinal silhouette is normal. The lungs are clear. No evidence of pleural effusion or pneumothorax. IMPRESSION: No acute abnormalities and in particular no radiographic evidence of pneumonia. ACT 112: Negative or not required by law. Electronically signed by: Ming Burns M.D. 06/05/2024 9:05 AM Transesophageal ECHO 06/05 - No evidence for mass or vegetation. This does not rule out endocarditis PG Care Time/CCT Total # of Minutes Spent Total Time Spent with Patient: Total time spent is greater than 50% in coordination of care (as documented) at patient's floor/unit and/or counseling patient: Coding Level of Care Code 74821 SUB INP/OBS CARE 3/50MIN Diagnoses Influenza A J10.1 Acute hypoxemic respiratory failure J96.01 Syncope R55 Hypertension I10 Hyperglycemia R73.9 Bacteremia R78.81 Diabetes E11.9
[2024-06-05] MEDS ORDERED: BENZONATATE 100 MG CAPSULE PO PRN (08:15)
--- NOTE | 2024-06-05 08:18 | Pulmonology Progress Note ---
Date of Service June 05, 2024 Assessment & Plan (1) Influenza A: (2) Pneumonia: Plan Impression: 48-year-old immune suppressed female on Ocrevus and prednisone for MS admitted 2 weeks post influenza with findings on CT scans concerning for hematogenous spread. On CT of the abdomen and pelvis, the liver and splenic lesions may be consistent with hemangiomas. Blood cultures were positive for pneumococcus. She is experiencing increasing cough and shortness of breath today. Her exam is unchanged. Recommendations: 1. Pneumococcal bacteremia. Infectious disease consultation reviewed. Currently on Rocephin and azithromycin. Antibiotics per ID. Surveillance cultures negative to date. SAEID pending for today 2. Hypoxemia: Continue supplemental oxygen titrated to keep saturations at or above 88%. 3. Influenza A: 2 weeks out. No indication for Tamiflu currently. Would recommend follow-up CT scan in 6 to 8 weeks 4. Asthma: Unclear if the patient actually has asthma or not. She is not bronchospastic currently. Will place on nebulized budesonide and Perforomist and continue DuoNebs on an as-needed basis. 5. Increasing cough and shortness of breath today. Recheck chest x-ray. Will place on Tessalon as needed. Thanks for the opportunity to participate in the care of this patient. Will continue to follow with you. Admission and Anticipated Discharge Date Admission Date: June 03, 2024 Subjective Patient seen and examined. EMR reviewed. The patient states that her breathing is little worse today. She is experiencing increasing cough. Her sputum is clear. She has not had any hemoptysis. She denies any chest pain. Review of Systems 2 Review of Systems: All systems reviewed & are unremarkable except as noted in Subjective Physical Exam 2 Constitutional: WD/WN, vitals as above Neck: trachea midline, no thyromegaly Respiratory: no respiratory distress, no labored breathing, no cough and not tachypneic Auscultation: + rhonchi; no wheezes Cardiovascular: RRR, no murmur, no edema Gastrointestinal (Abdomen): normal bowel sounds, soft, nontender, no hepatosplenomegaly Musculoskeletal: Extremities: extremities normal to inspection Skin: no rashes, warm and dry Lymphatic: no cervical lymphadenopathy Results & Data Results & Data Vital Signs (Past 12 Hours) Vital Signs Temp Pulse Pulse Pulse Resp BP Pulse Ox 06/05/24 07:36 06/05/24 07:33 36.3 C L 92 H 18 127/82 92 06/05/24 07:17 88 06/05/24 03:58 36.7 C 93 H 16 119/76 96 06/04/24 22:29 36.6 C 86 18 127/74 95 06/04/24 21:55 84 06/04/24 21:11 06/04/24 21:08 91 H 18 96 O2 Del Method O2 Flow Rate 06/05/24 07:36 Nasal Cannula 2 06/05/24 07:33 Nasal Cannula 1 06/05/24 07:17 06/05/24 03:58 Room Air 06/04/24 22:29 Nasal Cannula 1 06/04/24 21:55 06/04/24 21:11 Nasal Cannula 1 06/04/24 21:08 Nasal Cannula 1 Laboratory Results 06/05/24 06:40 06/05/24 06:40 Diagnostic Findings No new imaging PG Care Time/CCT Total # of Minutes Spent Total Time Spent with Patient: Total time spent is greater than 50% in coordination of care (as documented) at patient's floor/unit and/or counseling patient: Coding Level of Care Code 22369 SUB INP/OBS CARE 2/35MIN Diagnoses Influenza A J10.1 Pneumonia J18.9
--- NOTE | 2024-06-05 09:06 | XRay Report ---
XR chest 1V portable CLINICAL HISTORY: cough TECHNIQUE: Single frontal radiograph of the chest was obtained. Comparison: Comparison is made to chest radiograph 06/03/2024 FINDINGS: No lines and tubes are seen. The cardiomediastinal silhouette is normal. The lungs are clear. No evid ence of pleural effusion or pneumothorax. IMPRESSION: No acute abnormalities and in particular no radiographic evidence of pneumonia. ACT 112: Negative or not required by law. Electronically signed by: Ming Burns M.D. 06/05/2024 9:05 AM
[2024-06-05] MEDS: FORMOTEROL 20 MCG/2 ML VIAL NEB SCH (09:12)
[2024-06-05] MEDS ORDERED: PROPOFOL IV EMULSION 10 MG/ML 20 ML VIAL IV ONE (09:16)
[2024-06-05] MEDS ORDERED: LIDOCAINE 2% 2 ML VIAL/AMP(20MG/ML) INFIL ONE (09:16)
--- NOTE | 2024-06-05 09:33 | Anesthesiology Consultation ---
Date of Service June 05, 2024 Assessment & Plan Chart Review Chart Review: Acceptable Risk for Surgery and Patient NOT seen in Pre Admission Testing Consults Requested none ASA ASA3 Proposed Anesthesia Anesthesia Type: MAC Risk / Benefits Reviewed With: PT / POA / Parent / Guardian, Accepts Plan and Informed Consent Obtained History Surgery Operation Date: 06/05/24 12:00 Proposed Procedures p Transesophageal Echo w/Anesthesia - Jefferson Mix MD Height/Weight Height: 5 ft 7 in Weight: 72.4 kg Allergies Allergy/AdvReac Type Severity Reaction Status Date / Time nicotine [From Nicorette] Allergy Severe tongue Unverified 06/03/24 08:41 swells metformin Allergy sick Unverified 06/03/24 08:41 Medications Home Medications Medication Instructions Recorded Confirmed Last Taken ipratropium 0.5 mg-albuterol 3 mg 3 ml inhalation Q8H PRN wheezing 06/01/24 06/03/24 Unknown (2.5 mg base)/3 mL nebulization #90 mL soln Ocrevus (Unknown Strength) See Rx Instructions .Route .COMPLEX 06/03/24 06/03/24 Unknown amlodipine 5 mg tablet 5 mg PO DAILY 06/03/24 06/03/24 06/01/24 lisinopril 10 mg tablet 10 mg PO DAILY 06/03/24 06/03/24 06/01/24 Active Medications Generic Name Dose Route Start Last Admin Trade Name Freq PRN Reason Stop Dose Admin Albuterol 3 ml 06/04/24 13:15 06/04/24 21:07 Albut/Ipratrop 3mg/0.5mg Neb 3 Ml Vial NEB 07/03/24 13:43 3 ml Q4R PRN Administration Shortness Of Breath Or Wheezing Protocol Amlodipine Besylate 5 mg 06/04/24 09:00 06/04/24 08:49 Amlodipine Besylate 5 Mg Tab PO 07/04/24 08:59 5 mg DAILY JACKSON Administration Enoxaparin Sodium 40 mg 06/04/24 09:00 06/05/24 07:43 Enoxaparin Inj 40 Mg/0.4 Ml Syr SQ 07/04/24 08:59 Not Given QAM JACKSON Formoterol Fumarate 20 mcg 06/05/24 09:00 06/05/24 09:12 Formoterol 20 Mcg/2 Ml Vial NEB 07/05/24 08:59 20 mcg BIDR JACKSON Administration Guaifenesin 1,200 mg 06/03/24 10:55 06/05/24 08:22 Guaifenesin 600 Mg Tabcr PO 07/03/24 10:54 Not Given Q12 JACKSON Ceftriaxone Sodium 2,000 mg in 50 mls @ 100 mls/hr 06/04/24 08:00 06/05/24 08:26 Rocephin IV 06/09/24 07:59 Infused Q24H JACKSON Infusion Famotidine 20 mg in 5 mls @ 2.5 mls/min 06/04/24 18:30 06/05/24 05:43 Pepcid 20mg Iv Push IV 07/04/24 18:29 2.5 mls/min Q12H JACKSON Administration Insulin Aspart 0 units 06/03/24 13:44 06/04/24 20:19 Insulin Aspart Per Unit Charge SC 07/03/24 13:43 2 units ACHS JACKSON Administration Lisinopril 10 mg 06/04/24 09:00 06/04/24 09:19 Lisinopril 10 Mg Tab PO 07/04/24 08:59 10 mg DAILY JACKSON Administration NPO Date Last Intake of Fluids: 06/04/24 Time Last Intake of Fluids: 22:00 Date Last Intake of Solids: 06/04/24 Time Last Intake of Solids: 17:00 Past Anesthesia History No Hx of Anesthesia Complications and No Family Hx of Anesthesia Complications Social History Smoking Status: Former smoker Hx Alcohol Use: No Hx Substance Use: No Review of Systems ROS Unobtainable: All systems reviewed & are unremarkable except as noted in HPI & below Physical Exam Vital Signs Last Vital Signs Temp 36.3 C L 06/05/24 07:33 Pulse 99 H 06/05/24 09:09 Resp 20 06/05/24 09:09 BP 136/80 06/05/24 08:59 Pulse Ox 94 06/05/24 09:09 O2 Del Method Nasal Cannula 06/05/24 09:09 O2 Flow Rate 2 06/05/24 09:09 ENMT Mouth: no TMJ abnormality Thyromental Distance: > or= 3.5 Finger Breadths Mallampati Class: II Neck normal visual inspection and trachea midline; neck extension not limited Respiratory normal respiratory effort Auscultation: lungs clear to auscultation bilaterally Cardiovascular Rate/Rhythm: regular rate and regular rhythm Heart Sounds: no murmur Musculoskeletal Spine: normal cervical ROM Extremities: full ROM of extremities Neurologic moves all extremities Psychiatric Orientation: alert and oriented x 3 Testing Laboratory Results 06/05/24 06:40 06/05/24 06:40 PT 10.6 Seconds (9.0-12.0) 06/03/24 06:31 INR 1.0 (0.9-1.1) 06/03/24 06:31 Hemoglobin A1c 8.9 % (4.5-5.6) H 06/04/24 09:21 Urine Color Yellow 06/03/24 07:49 Urine Appearance Clear (Clear) 06/03/24 07:49 Urine pH 6.0 (4.5-7.5) 06/03/24 07:49 Ur Specific Lee 1.026 (1.000-1.030) 06/03/24 07:49 Urine Protein Trace (Negative) H 06/03/24 07:49 Urine Glucose (UA) 2+ (Negative) H 06/03/24 07:49 Urine Ketones Negative (Negative) 06/03/24 07:49 Urine Nitrite Negative (Negative) 06/03/24 07:49 Ur Leukocyte Esterase Negative (Negative) 06/03/24 07:49 Urine WBC (Auto) 0-5 /hpf (0-5) 06/03/24 07:49 Urine RBC (Auto) 3-5 /hpf (0-2) H 06/03/24 07:49 U Hyaline Cast (Auto) 0-2 /lpf (0-2) 06/03/24 07:49 U Epithel Cells (Auto) 0-2 /hpf (0-2) 06/03/24 07:49 Urine Bacteria (Auto) None Seen (None Seen) 06/03/24 07:49 06/03/24 07:29 Aerobic Blood Culture - Preliminary Blood No growth in Aerobic bottle after 48 hours. Anaerobic Blood Culture - Final 06/03/24 07:29 Aerobic Blood Culture - Preliminary Blood Streptococcus pneumoniae Anaerobic Blood Culture - Final 06/05/24 08:15 POC Glucose 206 H Electrocardiogram Date: 06/03/24 Sinus tachycardia Right atrial enlargement Minimal voltage criteria for LVH, may be normal variant Lateral infarct , age undetermined Abnormal ECG When compared with ECG of 01-Jun-2024 10:09, Lateral infarct is now Present Confirmed by Jefferson Mix ([id number]) on 06/03/2024 1:58:26 PM Echocardiogram Date: 06/03/24 EF: 60-65 LV Function: normal
--- NOTE | 2024-06-05 09:58 | Post Operative Brief Note ---
Cardiology Brief Post Op Date of Surgery June 05, 2024 Pre & Post Diagnosis Operation Date: 06/05/24 12:00 <No data on this case meets the specified criteria> Procedure SAEID. preliminary report- no vegetations. Patient tolerated the procedure well. No immediate complcitations Camera Assembler Jefferson Mix MD Supervisor Beehive Kiln none Estimated Blood Loss 0 Findings Consistent with Post-Op Diagnosis NO vegetations Complications none Disposition Disposition: PCU Overlapping Procedure I was immediately available: during the entire case.
--- NOTE | 2024-06-05 10:16 | Anesthesiology Progress Note ---
Date of Service June 05, 2024 Anesthesia Post Procedure Vital Signs Vital Signs: Temp Pulse Pulse Pulse Resp BP Pulse Ox 06/05/24 09:50 94 H 20 118/72 96 06/05/24 09:09 99 H 20 94 06/05/24 08:59 88 82 20 136/80 96 06/05/24 07:36 06/05/24 07:33 36.3 C L 92 H 18 127/82 92 06/05/24 07:17 88 06/05/24 03:58 36.7 C 93 H 16 119/76 96 06/04/24 22:29 36.6 C 86 18 127/74 95 06/04/24 21:55 84 06/04/24 21:11 06/04/24 21:08 91 H 18 96 06/04/24 19:25 36.6 C 86 18 164/94 H 96 06/04/24 16:08 36.6 C 81 20 158/98 H 96 06/04/24 14:50 85 16 98 06/04/24 14:01 108 H 06/04/24 12:10 36.6 C 86 20 157/94 H 95 O2 Del Method O2 Flow Rate 06/05/24 09:50 Nasal Cannula 6 06/05/24 09:09 Nasal Cannula 2 06/05/24 08:59 Room Air 06/05/24 07:36 Nasal Cannula 2 06/05/24 07:33 Nasal Cannula 1 06/05/24 07:17 06/05/24 03:58 Room Air 06/04/24 22:29 Nasal Cannula 1 06/04/24 21:55 06/04/24 21:11 Nasal Cannula 1 06/04/24 21:08 Nasal Cannula 1 06/04/24 19:25 Nasal Cannula 06/04/24 16:08 Nasal Cannula 1 06/04/24 14:50 Nasal Cannula 1 06/04/24 14:01 06/04/24 12:10 Nasal Cannula 1 Transfer of Care Handoff Completed per policy Notes Mental Status: alert / awake / arousable Patient Amnestic to Procedure: Yes Nausea / Vomiting: adequately controlled Pain: adequately controlled Airway Patency, RR, SpO2: stable & adequate BP & HR: stable & adequate Hydration State: stable & adequate Anesthetic Complications: no major complications apparent and Pt Satisfied with anesthetic care
[2024-06-05] MEDS: LANTUS PER UNIT CHARGE SC SCH (10:43)
[2024-06-05] MEDS: AZITHROMYCIN 250 MG TAB PO SCH (10:44)
[2024-06-05] MEDS: BENZOCAINE/TETRACAIN/BUTAM 50 APPLN/5 GM CAN EXT ONE (10:46)
--- NOTE | 2024-06-05 11:14 | XCELERA ---
[id number]
--- NOTE | 2024-06-05 11:47 | Infectious Disease Progress Nt ---
Date of Service June 05, 2024 Assessment & Plan (1) Influenza: (2) Shortness of breath: (3) Acute hypoxemic respiratory failure: (4) Bacteremia: Plan This is a 48-year-old female with a past medical history of MS on Ocrevus and prednisone on who initially presented to the ED on 06/01 with shortness of breath,dyspnea on exertion and lightheadedness with coughing. Her symptoms have been ongoing for approximately 2 weeks. She was diagnosed with influenza approximately a week ago. Does not report receiving Tamiflu. She received DuoNebs with improvement in her symptoms she was discharged and instructed to follow-up with pulmonary and her PCP. She returned to the ED on 06/03 with worsening shortness of breath and reported that her symptoms was not improving with steroids. She endorsed diffuse chest pressure and pain especially with coughing. Cough was productive. She denied fever, chills, nauesea or vomiting. She reports sick contacts with her who also has upper respiratory symptoms. He is a trucking supervisor and usually comes home on the weekends. She was staying in [facility] from July 2023 to March 2024 taking care of her elderly father. She denies other travel. He endorses a history of prior crack cocaine use about 15 years ago. Denies any current illicit drug activity. Denies history of IVDU. In the ED she is afebrile, pulse 99, RR 22, BP 181/112, O2 sats 91% on 2 L nasal cannula. Labs: WBC 17.09, platelets 405, BUN 9, creatinine 0.79, procalcitonin less than 0.02, lactate 2.3--> 1.4, hemoglobin A1c 8.9, MRSA nasal screen negative. Respiratory viral panel detected influenza A. Chest x-ray showed bilateral prominent bronchovascular markings. Right lower lobe medial ill- defined haziness. Chest CTA showed no PE. Focal area of consolidation in the medial segment of the right middle lobe, multiple groundglass opacities, centrilobular/tree-in-bud as well as cavitary nodules diffusely scattered in the bilateral lungs, few enlarged lymph nodes in the subcarinal and right paraesophageal regions. Upper abdomen showed hypodense lesions in the caudate lobe of the liver and spleen. CTAP showed findings in the liver and the spleen suggestive of hemangiomas. She was evaluated by Pulmonology who had concerns for possible hematogenous spread/septic emboli given her CT lung findings. TTE without valve vegetations. Blood culture now growing Streptococcus pneumoniae. She is currently on ceftriaxone, vancomycin and azithromycin. She remains on 2 L nasal cannula. ID consulted for c/f septic emboli. Microbiology: Blood cultures 06/03 Streptococcus pneumoniae ( Erytho R, but S to all else ) Blood cultures 06/04 pending Antibiotics: Ceftriaxone 06/03ongoing Vancomycin Azithromycin 06/03/22 # Streptococcus Pneumoniae bacteremia # Acute Hypoxic respiratory failure # Multifocal airspace opacities: rule out Possible septic emboli vs Pneumonia # Leukocytosis, improving #Influenza A infection # Elevated Hgaic, 8.9 Discussion She has been feeling unwell with respiratory symptoms for approximately 2 weeks. She is found to have influenza A on PCR but is out of the window for Tamiflu. She likely has a superimposed bacterial infection of the lung. CT lung findings concerning for multifocal airspace opacities. Pattern also concerning for possible septic emboli. It is noted however that her procalcitonin< than 0.02. Blood cultures positive for Streptococcus pneumoniae--> not a common organism associated with endocarditis. It is reassuring that the lesions on the liver and spleen initially seen on CT lung are more consistent with hemangiomas on CTAP than infarcts/emboli. 06/05 SAEID with no obvious valve vegatations. On 3L NC. Repeat CXR done today is clear. Strep PNA is PCN S Recommendations -Continue Ceftriaxone 2 g IV daily. -Follow up Repeat BC 06/04 -Collect and Follow up Sputum culture If no evidence of endovascular infection or persistent positive BC, can likely treat with a 2 week course of abx from sterile BC. Can likely complete therapy with oral abx ( possibly high dose Amox 1 g PO Q 8 hrs) ID will continue to follow. Taylor Marie MD, MPH Infectious Disease ID Connect [facility], ID Division Call [phone] with questions Admission and Anticipated Discharge Date Admission Date: June 03, 2024 Subjective This patient recommendation is based on a telemedicine consult request which was completed asynchronously through chart review and information provided by the primary physician. The patient was not seen or examined today. The evaluation is consultative in nature and all patient care and treatment decisions can either be accepted or rejected by the patient's primary hospital-based treating physician using their own independent medical judgment for their patient. Time Spent Reviewing Chart: 21 - 30 minutes SAEID w/o valve vegatations Repeat BC NGTD on 3lNC Results & Data Vital Signs (Past 12 Hours) Vital Signs Temp Pulse Pulse Pulse Resp BP Pulse Ox 06/05/24 10:29 88 20 111/88 94 06/05/24 10:15 88 20 145/100 H 95 06/05/24 09:50 94 H 20 118/72 96 06/05/24 09:09 99 H 20 94 06/05/24 08:59 88 82 20 136/80 96 06/05/24 07:36 06/05/24 07:33 36.3 C L 92 H 18 127/82 92 06/05/24 07:17 88 06/05/24 03:58 36.7 C 93 H 16 119/76 96 O2 Del Method O2 Flow Rate 06/05/24 10:29 Nasal Cannula 3 06/05/24 10:15 Nasal Cannula 6 06/05/24 09:50 Nasal Cannula 6 06/05/24 09:09 Nasal Cannula 2 06/05/24 08:59 Room Air 06/05/24 07:36 Nasal Cannula 2 06/05/24 07:33 Nasal Cannula 1 06/05/24 07:17 06/05/24 03:58 Room Air Laboratory Results Short CBC 06/05/24 Range/Units 06:40 WBC 12.24 H (4.8-10.8) K/ul Hgb 12.7 (12.0-16.0) g/dl Hct 36.7 L (37.0-47.0) % Plt Count 463 H (130-400) K/uL BMP 06/05/24 06:40 Sodium 135 L Potassium 4.1 Chloride 103 Carbon Dioxide 25 BUN 9 Creatinine 0.74 Glucose 193 H Calcium 9.4 Diagnostic Findings Microbiology 06/03/24 07:29 Blood Aerobic Blood Culture - Preliminary No growth in Aerobic bottle after 48 hours. 06/03/24 07:29 Blood Anaerobic Blood Culture - Final 06/03/24 07:29 Blood Aerobic Blood Culture - Preliminary Streptococcus pneumoniae 06/03/24 07:29 Blood Anaerobic Blood Culture - Final Chest X-Ray 06/03/24 05:38 EXAM: XR chest 1V portable CLINICAL HISTORY: SOB, ASTHMA, FLU. TECHNIQUE: An X-ray image of the chest is obtained in AP projection. COMPARISON: Prior study dated 06/01/2024. FINDINGS: Pulmonary Parenchyma: Bilateral prominent bronchovascular markings, hilar vessels on the background of diffuse ground glass haziness Right lower lobe medial ill-defined haziness (new finding) No evidence of pleural effusion or pleural thickening. Heart and Mediastinum: Heart size and shape are normal. No mediastinal widening or masses. No hilar or mediastinal lymphadenopathy. Bony Thorax: Bony thorax appears intact without fractures or deformities. Soft Tissues: Soft tissues overlying the chest wall are unremarkable. IMPRESSION: 1. Bilateral prominent bronchovascular markings, hilar vessels on background of diffuse ground glass haziness (stable). 2. Right lower lobe medial ill-defined haziness (new finding), Clinical and lab correlation is advised to rule out pulmonary infection. Electronically signed by Lizet Valdez 06-03-2024 06:26 AM Chest CTA 06/03/24 06:31 EXAM: CT angio chest PE protocol CLINICAL HISTORY: Patient was here on sunday, and woke up this morning and symptoms were worsening. patient was here on sunday and was positive for the flu TECHNIQUE: Contiguous 3.[address] angiographic images of the chest were acquired with the administration of intravenous contrast (112ml opti 320). Coronal and sagittal reconstructions were obtained. One of these 3D techniques was utilized: Maximum Intensity Pixel (MIP), 3D Reconstructed Images, Volume Rendered Images, Surface Shaded Rendering. One of the following dose reduction techniques were utilized for this exam: Automated exposure control, adjustment of the mA and/or kV according to patient size, and use of iterative reconstruction. COMPARISON: Prior X-ray dated 06/03/2024 for comparison. FINDINGS: Aorta: The thoracic aorta is normal in caliber. No evidence of aneurysm, dissection, or significant atherosclerotic changes. Aortic arch and descending thoracic aorta are unremarkable. Pulmonary Arteries: Pulmonary arteries are normal in size and opacification. No evidence of pulmonary embolism. No stenosis or filling defects. Superior Vena Cava (SVC) and Inferior Vena Cava (IVC): Normal opacification and caliber. No evidence of thrombus or obstruction. Coronary Arteries: Coronary arteries are well-opacified. No significant stenosis or atherosclerotic changes. Mediastinum: Few enlarged lymph nodes in the subcarinal and right paraesophageal regions. Normal appearance of the thymus. Heart: Normal size and morphology of the heart. No pericardial effusion. Lungs: Focal area of consolidation in the medial segment of the right middle lobe. Multiple ground glass opacities, centrilobular as well as cavitary nodules diffusely scattered in bilateral lungs. Centrilobular emphysema in bilateral lungs. No pleural effusion or thickening. Bones: No fractures or lytic/sclerotic lesions of the visualized bony structures. Normal alignment and bone density. Soft Tissues: Normal appearance of the visualized soft tissues. No abnormal masses or fluid collections. The visualized upper abdomen shows hypodense lesions in the caudate lobe of the liver and spleen likely abscesses. IMPRESSION: 1. No evidence of pulmonary thromboembolism. 2. Focal area of consolidation in the medial segment of the right middle lobe. 3. Multiple ground glass opacities, centrilobular/tree in bud nodules as well as cavitary nodules diffusely scattered in bilateral lungs. 4. Findings likely infective etiology. 5. Few enlarged lymph nodes in the subcarinal and right paraesophageal regions. 6. The visualized upper abdomen shows hypodense lesions in the caudate lobe of the liver and spleen likely abscesses. A dedicated CT scan abdomen is advised Electronically signed by Lizet Valdez 06-03-2024 08:45 AM Abdomen/Pelvis CT 06/03/24 08:[address] WITH IV CONTRAST CT DOSE: 849.83 mGy.cm HISTORY: abnormalities of abdomen and spleen on CT chest TECHNIQUE: Multiaxial CT images of the abdomen and pelvis were performed following the IV administration of 90 cc of Optiray, A dose lowering technique was utilized adhering to the principles of ALARA. COMPARISON STUDY: Chest CT earlier today FINDINGS: Reticular nodular and groundglass opacities diffusely in the visualized lower lungs again seen, likely infectious/inflammatory etiology ABDOMEN: There is an 8 cm oval hypodense finding at the caudate lobe of the liver with peripheral discontinuous nodular enhancement. There is a 3 cm hypodense finding at the superior aspect of the spleen. These findings likely represent hemangiomas. Gallbladder is surgically absent. Pancreas and adrenal glands are unremarkable. Kidneys show no hydronephrosis. There are scattered atherosclerotic calcifications. No abdominal aortic aneurysm. Pelvis: Uterus and adnexa are grossly unremarkable. Urinary bladder is nondistended. There is residual contrast in the renal collecting systems, ureters, and urinary bladder from the contrast chest CT earlier today. No bowel inflammation or obstruction seen. No free fluid, free air, or abscess. No enlarged adenopathy. Osseous structures: There is degenerative disc disease at L5-S1. No acute osseous findings. IMPRESSION: Findings at the liver and spleen likely represent hemangiomas. Suggest follow-up nonurgent pre and postcontrast abdominal MRI with multiphase hemangioma protocol. ACT 112: Positive. There are findings on this exam that require communication between the performing entity and the patient following Patient Test Result Information Act ([place] Act 112) guidelines. The above report was generated using voice recognition software. It may contain grammatical, syntax or spelling errors. Electronically signed by: Shabbir Dubon M.D. 06/03/2024 9:43 AM Chest X-Ray 06/05/24 08:15 XR chest 1V portable CLINICAL HISTORY: cough TECHNIQUE: Single frontal radiograph of the chest was obtained. Comparison: Comparison is made to chest radiograph 06/03/2024 FINDINGS: No lines and tubes are seen. The cardiomediastinal silhouette is normal. The lungs are clear. No evidence of pleural effusion or pneumothorax. IMPRESSION: No acute abnormalities and in particular no radiographic evidence of pneumonia. ACT 112: Negative or not required by law. Electronically signed by: Ming Burns M.D. 06/05/2024 9:05 AM Medications Administered Home Medications Medication Instructions Recorded Confirmed Last Taken ipratropium 0.5 mg-albuterol 3 mg 3 ml inhalation Q8H PRN wheezing 06/01/24 06/03/24 Unknown (2.5 mg base)/3 mL nebulization #90 mL soln Ocrevus (Unknown Strength) See Rx Instructions .Route .COMPLEX 06/03/24 06/03/24 Unknown amlodipine 5 mg tablet 5 mg PO DAILY 06/03/24 06/03/24 06/01/24 lisinopril 10 mg tablet 10 mg PO DAILY 06/03/24 06/03/24 06/01/24 Active Medications Generic Name Dose Route Start Last Admin Trade Name Freq PRN Reason Stop Dose Admin Albuterol 3 ml 06/04/24 13:15 06/04/24 21:07 Albut/Ipratrop 3mg/0.5mg Neb 3 Ml Vial NEB 07/03/24 13:43 3 ml Q4R PRN Administration Shortness Of Breath Or Wheezing Protocol Amlodipine Besylate 5 mg 06/04/24 09:00 06/05/24 10:43 Amlodipine Besylate 5 Mg Tab PO 07/04/24 08:59 5 mg DAILY JACKSON Administration Enoxaparin Sodium 40 mg 06/04/24 09:00 06/05/24 07:43 Enoxaparin Inj 40 Mg/0.4 Ml Syr SQ 07/04/24 08:59 Not Given QAM JACKSON Formoterol Fumarate 20 mcg 06/05/24 09:00 06/05/24 09:12 Formoterol 20 Mcg/2 Ml Vial NEB 07/05/24 08:59 20 mcg BIDR [facility] Administration Guaifenesin 1,200 mg 06/03/24 10:55 06/05/24 08:22 Guaifenesin 600 Mg Tabcr PO 07/03/24 10:54 Not Given Q12 JACKSON Ceftriaxone Sodium 2,000 mg in 50 mls @ 100 mls/hr 06/04/24 08:00 06/05/24 08:26 Rocephin IV 06/09/24 07:59 Infused Q24H [facility] Infusion Famotidine 20 mg in 5 mls @ 2.5 mls/min 06/04/24 18:30 06/05/24 05:43 Pepcid 20mg Iv Push IV 07/04/24 18:29 2.5 mls/min Q12H [facility] Administration Insulin Aspart 0 units 06/03/24 13:44 06/05/24 10:43 Insulin Aspart Per Unit Charge SC 07/03/24 13:43 2 units ACHS [facility] Administration Insulin Glargine 4 units 06/05/24 09:00 06/05/24 10:43 Lantus Per Unit Charge SC 07/05/24 08:59 4 units QAM [facility] Administration Lisinopril 10 mg 06/04/24 09:00 06/05/24 10:43 Lisinopril 10 Mg Tab PO 07/04/24 08:59 10 mg DAILY JACKSON Administration
[2024-06-05] MEDS: ENOXAPARIN INJ 40 MG/0.4 ML SYR SQ STA (16:57)
[2024-06-05] MEDS: BUDESONIDE 0.5 MG/2 ML VIAL (PULMICORT) NEB SCH (20:14)
[2024-06-05] MEDS: FAMOTIDINE 20 MG TAB PO SCH (20:36)
--- NOTE | 2024-06-06 07:40 | Hospitalist Progress Note ---
Date of Service June 06, 2024 Assessment & Plan (1) Influenza A: (2) Acute hypoxemic respiratory failure: (3) Syncope: (4) Hypertension: (5) Hyperglycemia: (6) Bacteremia: (7) Diabetes: Plan if a 48F with a PMHx of asthma, HTN and MS (immunocomp on ocrevous, last infusion in Mar), and recent dx of Influenza A who presents to the ED with continued shortness of breath and possible syncopal episodes at home. CTA chest showed no PE, multiple ground glass opacities, cavitary nodules diffusely scattered in bilateral lungs and a few enlarged lymph nodes. Was given steroids, nebs and antibiotics. in ER w/ need for 4L NC to maintain saturations #Influenza A/ acute hypoxic respiratory failure/PNA --Sepsis with severe sepsis due to Streptococcus pneumoniae with acute hypoxic respiratory failure, POA Outside window for tamiflu (notable wasn't given OSH unclear why). WBC 17k on admission. Procal interestingly though NOT elevated. No hx IVDU, did have crack use >15yrs ago Blood cx strep pneumoniae from 06/03 Sputum cx moderate eleuterio on preliminary TTE/SAEID without vegetation/mass ID consulted (see prior note), Pulmonology consulted Vanco/Ceftriaxone/Azithromycin provided on admission -- Vanco discontinue prior. -- Completed azithromycin x 3 days WBC trending down, 11.1k. Afebrile Repeat blood cx 06/05 NGTD x 48 hrs. Discussed w/ ID, CONVERTING TO AMOXICILLIN 1gm TID and plan for 2 week course for bacteremia given quick clearance/negative repeat blood cx Pulm added budesonide/formoterol nebs, continued and can be continued at dc - rx to CM today Supplemental O2 as needed, encouraged to titrate off/monitor. Plan for 2 step this weekend. DVT proph: lovenox SQ q24h -- encouraged nursing not to hold/was given as instructed daily/no missed doses, ambulation in room as well but should be on such. PT/OT consulted Hopeful dc this weekend, patient believes Sunday will be better but will monitor Bacteremia +Bcx from 06/03 above, repeat NGTD x 48hrs and converting to Amox PO to complete 2wk course as above #Possible Syncope/ Elevated troponin reported at home, +orthostatics on admission/IVF provided. Na improved and PO intake improved and renal function stable. *Na normal for Glu* ECHO/SAEID as above, PT/OT consulted #Hyperglycemia/Diabetes Mellitus Glu 283 on admit, recent steroids but hx DM and use ozempic in past, recent dietary indiscretions but family hx as well. Did not tolerate metformin Pharmacy consulted/managing insulin. No anion gap elevation A1c 8.9 presently DM educator in room today 06/06, enrico being placed R posterior arm/setting up on phone Will touch base about PA for Ozempic prior to dc, consider starting for weight loss as well. F/u outpatient planned, close monitoring/dietary changes. DM changed to diabetic/continued #HTN Significant elevations on admission but hadn't taken home meds and were provided. Additional 5mg amlodipine 2 days ago but has been stable 125/87 at present.. Did have severe concentric LVH on ECHO to note and will monitor/increase amlodipine if needed given AA/benefit CCB vs thiazide diuretic. Would avoid diuretic given syncope on admission + orthostatics Remains on lisinopril 10mg, amlodipine 5mg daily #abnormal CT scan findings 8cm hypodense finding in lobe of liver and 3cm hypodense finding of spleen Pt aware of above 06/03 , will need nonurgent pre and postcontrast abdominal MRI with multiphase hemangioma protocol ed. #Nicotine Dependence hc of 05/15 ppd - stopped smoking with recent illness. Declined nicotine patch. Encourage cessation. DVT proph: Lovenox SQ continued while inpatient, retimed/encouraged nursing not to miss any doses and was educated on importance in hospitalized patients Dispo: abx chaning to Amox PO, plan 14 day course. ID consulted/following Giving rx for neb/meds to CM for at dc, plan 2 step this weekend to see if any needs. Will need outpt CT chest 6-8wks PT/OT consulted Will need f/u DM as well Possible dc next 24-48 hrs Will need nonemergent MRI abd, ?this weekend pending inpatient status Admission and Anticipated Discharge Date Admission Date: June 03, 2024 Supervising Physician Co-Signing Physician Notes The patient was not seen by me. The chart was reviewed. Case discussed with ZAFAR Campbell. Agree with assessment and plan Subjective Eval this afternoon, DM educator in room showing how to use Enrico. Patient in good spirits/reports feeling better. She notes A1c better in past but dietary indiscretions in [place] since that time and reports "next time you check it's gonna be a whole lot better" with regards to her A1c. She is focused on getting these better, possible ozempic. On 2L, titrate as able. Lung exam stable, +cough, clear sputum. Discussed blood cx negative, likely able to transition to amox 1gm TID to complete course. Possible dc this weekend, TBD pending response. Remains on nebs, plan to continue at dc. 2step tomorrow vs sunday, she reports she thinks Sunday will be better but agreeable to see how she does. She wants off O2 prior to dc, will hopefully be able to do and appears much better. No fever/chills, no chest pain, no nausea/vomiting. Questions/concerns addressed at this time. Wished a happy birthday -- turned 49 today! :) Physical Exam 2 Physical Exam: General: 48yo female sitting up in bed, NAD, +cough, clear sputum production, on 2L NC., DM educator in room/enrico being placed/set up to RIGHT posterior upper arm HEENT: head atraumatic, normocephalic, mm IMPROVED/moist, trachea midline Resp: even/unlabored, no wheezing/rales, on 2L NC (reports got neb prior to SAEID w/ improvement), no tachypnea, +cough (clear sputum) CV: regular, rates stable on telemetry, no significant m/r/g, no pitting edema, calves nontender GI: +BS, soft/NT no jean baptiste MSK/Neuro: not confused, answering questions appropriately, moves all extremities, no focal loss of strength Psych: AOx3, cooperative/pleasant during encounter Results & Data Results & Data Vital Signs (Past 12 Hours) Vital Signs Temp Pulse Pulse Pulse Resp BP Pulse Ox 06/06/24 07:23 96 H 18 96 06/06/24 03:43 36.5 C 98 H 20 121/87 100 06/05/24 22:49 36.5 C 79 16 127/76 95 06/05/24 22:34 06/05/24 21:52 81 06/05/24 20:14 105 H 18 97 06/05/24 19:41 36.6 C 83 16 124/71 96 O2 Del Method O2 Flow Rate 06/06/24 07:23 Nasal Cannula 2 06/06/24 03:43 Nasal Cannula 2 06/05/24 22:49 Nasal Cannula 2 06/05/24 22:34 Nasal Cannula 2 06/05/24 21:52 06/05/24 20:14 Room Air 06/05/24 19:41 Nasal Cannula 2 Laboratory Results 06/06/24 06:52 06/06/24 06:52 Procal <0.02 Mag 2.0 B12 411 Iron 30, TIBC 301, Transferrin 215, trans% sat 10, ferritin 89.4 PG Care Time/CCT Total # of Minutes Spent Total Time Spent with Patient: Total time spent is greater than 50% in coordination of care (as documented) at patient's floor/unit and/or counseling patient: Coding Level of Care Code 52961 SUB INP/OBS CARE 3/50MIN Diagnoses Influenza A J10.1 Acute hypoxemic respiratory failure J96.01 Syncope R55 Hypertension I10 Hyperglycemia R73.9 Bacteremia R78.81 Diabetes E11.9
[2024-06-06 07:43] LABS: Basophils # (auto) 0.04 K/uL (0.00-0.20); Basophils % (auto) 0.4 %; Eosinophils # (auto) 0.16 K/uL (0.00-0.50); Eosinophils % (auto) 1.4 %; Hematocrit (blood only) 36.6 % (37.0-47.0); Hemoglobin 12.5 g/dl (12.0-16.0); Immature Granulocytes # (auto) 0.55 K/uL (0.01-0.20); Immature Granulocytes % (auto) 4.9 %; Lymphocytes # (auto) 1.89 K/uL (1.20-3.40); Lymphocytes % (auto) 16.9 %; Mean Corpuscular Hgb Conc 34.2 g/dL (32.0-36.0); Mean Corpuscular Volume 87.8 fL (80.0-100.0); Mean Platelet Volume 9.3 fL (9.4-12.4); Monocytes # (auto) 1.33 K/uL (0.11-0.59); Monocytes % (auto) 11.9 %; Neutrophils # (auto) 7.19 K/uL (1.40-6.50); Neutrophils % (auto) 64.5 %; Platelet Count 495 K/uL (130-400); RDW Standard Deviation 48.6 fL (36.4-46.3); Red Blood Count 4.17 M/uL (4.20-5.40); White Blood Count 11.16 K/ul (4.8-10.8)
[2024-06-06 08:01] LABS: Albumin Globulin Ratio 1.4 (0.9-2); Albumin Level 3.8 gm/dl (3.4-5.0); BUN Creatinine Ratio 13.9 (10-20); Bilirubin,Total 0.3 mg/dl (0.2-1.0); Calcium 9.4 mg/dl (8.6-10.3); Creatinine Clr Calc Pharmacy 82.8 ml/min; Globulin 2.8 gm/dl (2.5-4.0); Total Protein 6.6 gm/dl (6.0-8.3)
--- NOTE | 2024-06-06 08:07 | Pulmonology Progress Note ---
Date of Service June 06, 2024 Assessment & Plan (1) Influenza A: (2) Pneumonia: Plan Impression: 48-year-old immune suppressed female on Ocrevus and prednisone for MS admitted 2 weeks post influenza with findings on CT scans concerning for hematogenous spread. SAEID showed no vegetation. Surveillance cultures no growth to date. She is clinically improved. Recommendations: 1. Pneumococcal bacteremia. Infectious disease consultation reviewed. Currently on Rocephin and azithromycin. Antibiotics per ID. Surveillance cultures negative to date. SAEID negative for vegetation 2. Hypoxemia: Continue supplemental oxygen titrated to keep saturations at or above 88%. Patient may need to be assessed for supplemental oxygen prior to discharge 3. Influenza A: 2 weeks out. No indication for Tamiflu currently. Would recommend follow-up CT scan in 6 to 8 weeks 4. Asthma: Unclear if the patient actually has asthma or not. Continue nebulized budesonide and Perforomist and continue DuoNebs on an as-needed basis. She can go home on these medications 5. Continue Tessalon for cough Thanks for the opportunity to participate in the care of this patient. Will continue to follow with you. Patient may be approaching discharge. She can follow-up in the outpatient setting with her outpatient business owner/engineer at [facility] will sign off. Feel free to contact us with questions or concerns Admission and Anticipated Discharge Date Admission Date: June 03, 2024 Subjective Patient seen and examined. EMR reviewed. The patient reports that she is feeling better this morning. She is coughing but the nebulizers have been effective in improving her symptoms. She is not producing much phlegm. Her shortness of breath is better today. She completed her SAEID without difficulty. Review of Systems 2 Review of Systems: All systems reviewed & are unremarkable except as noted in Subjective Physical Exam 2 Constitutional: WD/WN, vitals as above Neck: trachea midline, no thyromegaly Respiratory: no respiratory distress, no labored breathing, no cough and not tachypneic Auscultation: + rhonchi; no wheezes Cardiovascular: RRR, no murmur, no edema Gastrointestinal (Abdomen): normal bowel sounds, soft, nontender, no hepatosplenomegaly Musculoskeletal: Extremities: extremities normal to inspection Skin: no rashes, warm and dry Lymphatic: no cervical lymphadenopathy Results & Data Results & Data Vital Signs (Past 12 Hours) Vital Signs Temp Pulse Pulse Pulse Resp BP Pulse Ox 06/06/24 07:23 96 H 18 96 06/06/24 03:43 36.5 C 98 H 20 121/87 100 06/05/24 22:49 36.5 C 79 16 127/76 95 06/05/24 22:34 06/05/24 21:52 81 06/05/24 20:14 105 H 18 97 O2 Del Method O2 Flow Rate 06/06/24 07:23 Nasal Cannula 2 06/06/24 03:43 Nasal Cannula 2 06/05/24 22:49 Nasal Cannula 2 06/05/24 22:34 Nasal Cannula 2 06/05/24 21:52 06/05/24 20:14 Room Air Laboratory Results 06/06/24 06:52 06/06/24 06:52 PG Care Time/CCT Total # of Minutes Spent Total Time Spent with Patient: Total time spent is greater than 50% in coordination of care (as documented) at patient's floor/unit and/or counseling patient: Coding Level of Care Code 55213 SUB INP/OBS CARE 2/35MIN Diagnoses Influenza A J10.1 Pneumonia J18.9
--- NOTE | 2024-06-06 10:20 | Pharmacy Report ---
Pharmacy Glycemic Short Note 2 - Date of Service June 06, 2024 - Glycemic Short BSG Results (Last 24 hours): 06/05/24 06/05/24 06/05/24 12:32 17:04 20:08 Glucose POC Glucose 212 H 142 H 215 H 06/06/24 06/06/24 06:52 08:25 Glucose 216 H POC Glucose 151 H OUTPATIENT ANTIDIABETIC REGIMEN: * N/A HbA1c: 8.9% (06/04/24) ASSESSMENT: 06/06 * A total of 16 units of insulin were given yesterday (4 units were basal and 12 units were bolus) * Fasting BSG was in goal range (151mg/dL) this morning so will continue Lantus 4 units QAM. * BSGs were mostly above goal range yesterday ([phone]/dL). CF was tightened yesterday. If BSGs continue to increase throughout today, will tighten bolus parameters more. 06/04 * PE is a 48 year old female admitted with pneumonia (positive influenza A, cavitary nodules noted bilaterally, and multiple ground glass opacities) * Pertinent PMH includes MS, asthma, and hypertension. Now with Streptococcus pneumoniae bacteremia (vancomycin/ceftriaxone/azithromycin at this time) * Hyperglycemic on presentation to hospital and with elevated HbA1c, of note patient recently prescribed prednisone * Blood sugars have been labile since time of presentation. Pharmacy consulted today for glycemic management. * Will be conservative with initial insulin regimen, given significant correction of higher blood sugars (364 -> 87 mg/dL, 255 mg/dL -> 102 mg/dL) PLAN FOR INPATIENT GLYCEMIC CONTROL: * Basal insulin * Lantus 4 units SQ q AM * Bolus insulin * NovoLog per scale ACHS or Q6hrs while NPO * Goal Range: Low 120 mg/dL - High 160 mg/dL * Correction Factor: 45 mg/dL/unit * Nutritional / Prandial insulin per carb ratio of 1 unit per 20 grams CHO consumed
[2024-06-06 10:48] LABS: Ferritin 89.4 ng/ml (8-388)
[2024-06-06] MEDS: IRON SUCROSE 300 MG in SODIUM CHLORIDE 0.9% 250 ML IV ONE (15:47)
--- NOTE | 2024-06-06 16:13 | Infectious Disease Progress Nt ---
Date of Service June 06, 2024 Assessment & Plan (1) Influenza: (2) Shortness of breath: (3) Acute hypoxemic respiratory failure: (4) Bacteremia: Plan This is a 48-year-old female with a past medical history of MS on Ocrevus and prednisone on who initially presented to the ED on 06/01 with shortness of breath,dyspnea on exertion and lightheadedness with coughing. Her symptoms have been ongoing for approximately 2 weeks. She was diagnosed with influenza approximately a week ago. Does not report receiving Tamiflu. She received DuoNebs with improvement in her symptoms she was discharged and instructed to follow-up with pulmonary and her PCP. She returned to the ED on 06/03 with worsening shortness of breath and reported that her symptoms was not improving with steroids. She endorsed diffuse chest pressure and pain especially with coughing. Cough was productive. She denied fever, chills, nauesea or vomiting. She reports sick contacts with her who also has upper respiratory symptoms. He is a forklift truck operator and usually comes home on the weekends. She was staying in [facility] from July 2023 to March 2024 taking care of her elderly father. She denies other travel. He endorses a history of prior crack cocaine use about 15 years ago. Denies any current illicit drug activity. Denies history of IVDU. In the ED she is afebrile, pulse 99, RR 22, BP 181/112, O2 sats 91% on 2 L nasal cannula. Labs: WBC 17.09, platelets 405, BUN 9, creatinine 0.79, procalcitonin less than 0.02, lactate 2.3--> 1.4, hemoglobin A1c 8.9, MRSA nasal screen negative. Respiratory viral panel detected influenza A. Chest x-ray showed bilateral prominent bronchovascular markings. Right lower lobe medial ill- defined haziness. Chest CTA showed no PE. Focal area of consolidation in the medial segment of the right middle lobe, multiple groundglass opacities, centrilobular/tree-in-bud as well as cavitary nodules diffusely scattered in the bilateral lungs, few enlarged lymph nodes in the subcarinal and right paraesophageal regions. Upper abdomen showed hypodense lesions in the caudate lobe of the liver and spleen. CTAP showed findings in the liver and the spleen suggestive of hemangiomas. She was evaluated by Pulmonology who had concerns for possible hematogenous spread/septic emboli given her CT lung findings. TTE without valve vegetations. Blood culture now growing Streptococcus pneumoniae. She is currently on ceftriaxone, vancomycin and azithromycin. She remains on 2 L nasal cannula. ID consulted for c/f septic emboli. Microbiology: Blood cultures 06/03 Streptococcus pneumoniae ( Erytho R, but S to all else, including PCN ) Blood cultures 06/04 NGTD Sputum culture 06/05 g/s Many WBCs Seen Moderate Gram Positive Cocci Few Gram Positive Bacilli Few Gram Negative Bacilli Few Gram Negative Cocci CX with moderate normal eleuterio so far Antibiotics: Ceftriaxone 06/03ongoing Vancomycin Azithromycin # Streptococcus Pneumoniae bacteremia, uncomplicated # Acute Hypoxic respiratory failure # Multifocal airspace opacities # Leukocytosis, improving #Influenza A infection with possible superimposed Streptococcus Pneumoniae Pna # Elevated Hgaic, 8.9 Discussion She has been feeling unwell with respiratory symptoms for approximately 2 weeks. She is found to have influenza A on PCR but is out of the window for Tamiflu. She likely has a superimposed bacterial infection of the lung. CT lung findings concerning for multifocal airspace opacities. Pattern also concerning for possible septic emboli. It is noted however that her procalcitonin< than 0.02. Blood cultures positive for Streptococcus pneumoniae--> not a common organism associated with endocarditis. It is reassuring that the lesions on the liver and spleen initially seen on CT lung are more consistent with hemangiomas on CTAP than infarcts/emboli. 06/05 SAEID with no obvious valve vegatations. On 3L NC. Repeat CXR done today is clear. Strep PNA is PCN S 06/06 remains on NC ( 2-3 L) , Repeat BC NGTD. Repeat Procal remains negative. WBC 11.16( peak 17.09), Sputum gram stain with ModGPC, few GPR, GNR, GNC; CX pending Recommendations -Continue Ceftriaxone 2 g IV daily. -Follow up Repeat BC 06/04 - Follow up Sputum culture 06/05 Since no evidence of endocarditis, persistent positive BC, continues clinical improvement and probable lung source for bacteremia, can likely treat with a 2 week course of antibiotics from sterile BC (06/04- 06/18). Can likely complete therapy with oral abx ( high dose Amoxicillin 1 g PO Q 8 hrs). If on amoxicillin she worsens, then complete a 2 weeks course of Ceftriaxone. D/w team . ID will sign off. Please call if signs of worsening infection, repeat BC + or sputum cx with bacteria other than strep pneumoniae. Taylor Marie MD, MPH Infectious Disease [facility] Call [phone] with questions Admission and Anticipated Discharge Date Admission Date: June 03, 2024 Subjective This patient recommendation is based on a telemedicine consult request which was completed asynchronously through chart review and information provided by the primary physician. The patient was not seen or examined today. The evaluation is consultative in nature and all patient care and treatment decisions can either be accepted or rejected by the patient's primary hospital-based treating physician using their own independent medical judgment for their patient. Time Spent Reviewing Chart: 31+ minutes WBC 11.16 Repeat BC NGTD Still has cough on 2L NC Results & Data Vital Signs (Past 12 Hours) Vital Signs Temp Pulse Pulse Pulse Resp BP Pulse Ox 06/06/24 15:56 97 H 16 99 06/06/24 11:13 06/06/24 09:08 101 H 06/06/24 08:12 36.4 C L 77 18 125/87 97 06/06/24 07:23 96 H 18 96 Pulse Ox O2 Del Method O2 Flow Rate O2 Flow Rate 06/06/24 15:56 Nasal Cannula 4 06/06/24 11:13 94 2 06/06/24 09:08 06/06/24 08:12 Nasal Cannula 2 06/06/24 07:23 Nasal Cannula 2 Laboratory Results Short CBC 06/06/24 Range/Units 06:52 WBC 11.16 H (4.8-10.8) K/ul Hgb 12.5 (12.0-16.0) g/dl Hct 36.6 L (37.0-47.0) % Plt Count 495 H (130-400) K/uL BMP 06/06/24 06:52 Sodium 135 L Potassium 4.0 Chloride 103 Carbon Dioxide 24 BUN 11 Creatinine 0.79 Glucose 216 H Calcium 9.4 Liver Function 06/06/24 Range/Units 06:52 Total Bilirubin 0.3 (0.2-1.0) mg/dl AST 15 (13-39) U/L ALT 29 (7-52) U/L Alkaline Phosphatase 62 (34-104) U/L Albumin 3.8 (3.4-5.0) gm/dl Diagnostic Findings Microbiology 06/04/24 11:01 Blood Aerobic Blood Culture - Preliminary No growth in Aerobic bottle after 48 hours. 06/04/24 11:01 Blood Anaerobic Blood Culture - Preliminary No growth in Anaerobic bottle after 48 hours. 06/04/24 10:51 Blood Aerobic Blood Culture - Preliminary No growth in Aerobic bottle after 48 hours. 06/04/24 10:51 Blood Anaerobic Blood Culture - Preliminary No growth in Anaerobic bottle after 48 hours. 06/05/24 Unknown Sputum, Expectorated Gram Stain - Final 06/05/24 Unknown Sputum, Expectorated Sputum Culture - Preliminary Moderate normal eleuterio present, final report to follow. 06/03/24 07:29 Blood Aerobic Blood Culture - Preliminary No growth in Aerobic bottle after 48 hours. 06/03/24 07:29 Blood Anaerobic Blood Culture - Final 06/03/24 07:29 Blood Aerobic Blood Culture - Preliminary Streptococcus pneumoniae 06/03/24 07:29 Blood Anaerobic Blood Culture - Final CT lung 06/03/24 IMPRESSION: 1. No evidence of pulmonary thromboembolism. 2. Focal area of consolidation in the medial segment of the right middle lobe. 3. Multiple ground glass opacities, centrilobular/tree in bud nodules as well as cavitary nodules diffusely scattered in bilateral lungs. 4. Findings likely infective etiology. 5. Few enlarged lymph nodes in the subcarinal and right paraesophageal regions. 6. The visualized upper abdomen shows hypodense lesions in the caudate lobe of the liver and spleen likely abscesses. A dedicated CT scan abdomen is advised Chest X-Ray 06/05/24 08:15 XR chest 1V portable CLINICAL HISTORY: cough TECHNIQUE: Single frontal radiograph of the chest was obtained. Comparison: Comparison is made to chest radiograph 06/03/2024 FINDINGS: No lines and tubes are seen. The cardiomediastinal silhouette is normal. The lungs are clear. No evidence of pleural effusion or pneumothorax. IMPRESSION: No acute abnormalities and in particular no radiographic evidence of pneumonia. ACT 112: Negative or not required by law. Electronically signed by: Ming Burns M.D. 06/05/2024 9:05 AM Medications Administered Home Medications Medication Instructions Recorded Confirmed Last Taken ipratropium 0.5 mg-albuterol 3 mg 3 ml inhalation Q8H PRN wheezing 06/01/24 06/03/24 Unknown (2.5 mg base)/3 mL nebulization #90 mL soln Ocrevus (Unknown Strength) See Rx Instructions .Route .COMPLEX 06/03/24 06/03/24 Unknown amlodipine 5 mg tablet 5 mg PO DAILY 06/03/24 06/03/24 06/01/24 lisinopril 10 mg tablet 10 mg PO DAILY 06/03/24 06/03/24 06/01/24 semaglutide 0.25 mg or 0.5 mg (2 0.25 mg (0.368 mL) subcut .weekly 06/06/24 Unknown mg/3 mL) subcutaneous pen injector #3 mL (Ozempic) Active Medications Generic Name Dose Route Start Last Admin Trade Name Freq PRN Reason Stop Dose Admin Albuterol 3 ml 06/04/24 13:15 06/06/24 15:56 Albut/Ipratrop 3mg/0.5mg Neb 3 Ml Vial NEB 07/03/24 13:43 3 ml Q4R PRN Administration Shortness Of Breath Or Wheezing Protocol Amlodipine Besylate 5 mg 06/04/24 09:00 06/06/24 08:46 Amlodipine Besylate 5 Mg Tab PO 07/04/24 08:59 5 mg DAILY JACKSON Administration Budesonide 0.5 mg 06/05/24 19:00 06/06/24 07:22 Budesonide 0.5 Mg/2 Ml Vial (Pulmicort) NEB 07/05/24 18:59 0.5 mg BIDR JACKSON Administration Famotidine 20 mg 06/05/24 21:00 06/06/24 08:44 Famotidine 20 Mg Tab PO 07/05/24 20:59 20 mg BID JACKSON Administration Formoterol Fumarate 20 mcg 06/05/24 09:00 06/06/24 07:22 Formoterol 20 Mcg/2 Ml Vial NEB 07/05/24 08:59 20 mcg BIDR JACKSON Administration Guaifenesin 1,200 mg 06/03/24 10:55 06/06/24 08:46 Guaifenesin 600 Mg Tabcr PO 07/03/24 10:54 1,200 mg Q12 JACKSON Administration Iron Sucrose 300 mg/ Sodium 265 mls @ 176.667 mls/hr 06/06/24 15:13 06/06/24 15:47 Chloride IV 06/06/24 16:42 176.7 mls/hr TODAY ONE Administration Insulin Aspart 0 units 06/03/24 13:44 06/06/24 13:15 Insulin Aspart Per Unit Charge SC 07/03/24 13:43 1 units ACHS JACKSON Administration Insulin Glargine 4 units 06/05/24 09:00 06/06/24 09:00 Lantus Per Unit Charge SC 07/05/24 08:59 4 units QAM JACKSON Administration Lisinopril 10 mg 06/04/24 09:00 06/06/24 08:44 Lisinopril 10 Mg Tab PO 07/04/24 08:59 10 mg DAILY JACKSON Administration
[2024-06-06] MEDS: AMOXICILLIN 500 MG CAP PO SCH (21:07)
[2024-06-07] MEDS: hydrOXYzine HCl 25 MG TAB PO STA (04:21)
--- NOTE | 2024-06-07 08:02 | Hospitalist Progress Note ---
Date of Service June 07, 2024 Assessment & Plan (1) Influenza A: (2) Acute hypoxemic respiratory failure: (3) Syncope: (4) Hypertension: (5) Hyperglycemia: (6) Bacteremia: (7) Diabetes: Plan if a 48F with a PMHx of asthma, HTN and MS (immunocomp on ocrevous, last infusion in Mar), and recent dx of Influenza A who presents to the ED with continued shortness of breath and possible syncopal episodes at home. CTA chest showed no PE, multiple ground glass opacities, cavitary nodules diffusely scattered in bilateral lungs and a few enlarged lymph nodes. Was given steroids, nebs and antibiotics. in ER w/ need for 4L NC to maintain saturations #Influenza A/ acute hypoxic respiratory failure/PNA --Sepsis with severe sepsis due to Streptococcus pneumoniae with acute hypoxic respiratory failure, POA Outside window for tamiflu (notable wasn't given OSH unclear why). WBC 17k on admission. Procal interestingly though NOT elevated. No hx IVDU, did have crack use >15yrs ago Blood cx strep pneumoniae from 06/03 Sputum cx moderate eleuterio on preliminary TTE/SAEID without vegetation/mass ID consulted (see prior note), Pulmonology consulted Vanco/Ceftriaxone/Azithromycin provided on admission -- Vanco discontinue prior. -- Completed azithromycin x 3 days WBC trending down, 11.1k. Afebrile Repeat blood cx 06/05 NGTD x 48 hrs. Discussed w/ ID, CONVERTING TO AMOXICILLIN 1gm TID and plan for 2 week course for bacteremia given quick clearance/negative repeat blood cx Pulm added budesonide/formoterol nebs, continued and can be continued at dc - rx to CM today Supplemental O2 as needed, encouraged to titrate off/monitor. Plan for 2 step this weekend. DVT proph: lovenox SQ q24h -- encouraged nursing not to hold/was given as instructed daily/no missed doses, ambulation in room as well but should be on such. PT/OT consulted Hopeful dc this weekend, patient believes Sunday will be better but will monitor 06/07-- switched to amox 1gm tid per discussion w/ ID. Monitoring and if worsens would need 2 wks Ceftriaxone. sputum final moderate normal eleuterio. bcx 06/04 remaining ngtd labs added to today, WBC was improving. Continues nebs/breathing treatments as outlined, plan for neb machine/supplies, rx at dc. 2step prior to dc planned. ct chest outpt panic attack last evening 25 hydroxyzine provided. if effective can consider prn while inpatient Bacteremia +Bcx from 06/03 above, repeat NGTD x 48hrs and converting to Amox PO to complete 2wk course as above #Possible Syncope/ Elevated troponin reported at home, +orthostatics on admission/IVF provided. Na improved and PO intake improved and renal function stable. *Na normal for Glu* ECHO/SAEID as above, PT/OT consulted #Hyperglycemia/Diabetes Mellitus Glu 283 on admit, recent steroids but hx DM and use ozempic in past, recent dietary indiscretions but family hx as well. Did not tolerate metformin Pharmacy consulted/managing insulin. No anion gap elevation A1c 8.9 presently DM educator in room today 06/06, giorgio being placed R posterior arm/setting up on phone Will touch base about PA for Ozempic prior to dc, consider starting for weight loss as well. F/u outpatient planned, close monitoring/dietary changes. DM changed to diabetic/continued #HTN Significant elevations on admission but hadn't taken home meds and were provided. Additional 5mg amlodipine 2 days ago but has been stable 125/87 at present.. Did have severe concentric LVH on ECHO to note and will monitor/ increase amlodipine if needed given AA/benefit CCB vs thiazide diuretic. Would avoid diuretic given syncope on admission + orthostatics Remains on lisinopril 10mg, amlodipine 5mg daily #abnormal CT scan findings 8cm hypodense finding in lobe of liver and 3cm hypodense finding of spleen Pt aware of above 06/03 , will need nonurgent pre and postcontrast abdominal MRI with multiphase hemangioma protocol ed. #Nicotine Dependence hc of 05/15 ppd - stopped smoking with recent illness. Declined nicotine patch. Encourage cessation. DVT proph: Lovenox SQ continued while inpatient, retimed/encouraged nursing not to miss any doses and was educated on importance in hospitalized patients Dispo: abx chaning to Amox PO, plan 14 day course. ID consulted/following Giving rx for neb/meds to CM for at dc, plan 2 step this weekend to see if any needs. Will need outpt CT chest 6-8wks PT/OT consulted Will need f/u DM as well Possible dc next 24-48 hrs Will need nonemergent MRI abd, ?this weekend pending inpatient status Admission and Anticipated Discharge Date Admission Date: June 03, 2024 Results & Data Results & Data Vital Signs (Past 12 Hours) Vital Signs Temp Pulse Pulse Resp BP Pulse Ox O2 Del Method 06/07/24 07:34 75 06/07/24 07:06 87 19 93 Nasal Cannula 06/07/24 03:58 36.6 C 68 18 158/82 H 96 Room Air 06/06/24 23:25 36.8 C 95 H 20 137/99 94 Room Air 06/06/24 21:47 Room Air 06/06/24 21:45 83 O2 Flow Rate 06/07/24 07:34 06/07/24 07:06 2 06/07/24 03:58 06/06/24 23:25 06/06/24 21:47 06/06/24 21:45 PG Care Time/CCT Total # of Minutes Spent Total Time Spent with Patient: Total time spent is greater than 50% in coordination of care (as documented) at patient's floor/unit and/or counseling patient: Coding Diagnoses Influenza A J10.1 Acute hypoxemic respiratory failure J96.01 Syncope R55 Hypertension I10 Hyperglycemia R73.9 Bacteremia R78.81 Diabetes E11.9
[2024-06-07 08:30] LABS: Hematocrit (blood only) 35.3 % (37.0-47.0); Hemoglobin 11.9 g/dl (12.0-16.0); Mean Corpuscular Hemoglobin 29.5 pg (25.0-34.0); Mean Corpuscular Hgb Conc 33.7 g/dL (32.0-36.0); Mean Corpuscular Volume 87.6 fL (80.0-100.0); Mean Platelet Volume 9.1 fL (9.4-12.4); Platelet Count 499 K/uL (130-400); RDW Coefficient of Variation 14.9 % (11.5-14.5); Red Blood Count 4.03 M/uL (4.20-5.40); White Blood Count 9.84 K/ul (4.8-10.8)
[2024-06-07 08:43] LABS: BUN Creatinine Ratio 12.8 (10-20); Calcium 9.5 mg/dl (8.6-10.3); Creatinine Clr Calc Pharmacy 83.9 ml/min
[2024-06-07] MEDS: LANTUS PER UNIT CHARGE SC SCH (10:26)
[2024-06-07 10:36] VITALS: TEMP 97.9
[2024-06-07] MEDS: IRON SUCROSE 300 MG in SODIUM CHLORIDE 0.9% 250 ML IV ONE (10:37)
[2024-06-07] MEDS: hydrOXYzine HCl 10 MG TAB PO PRN (10:42)
--- NOTE | 2024-06-07 13:18 | Discharge Summary ---
Discharge Summary Date of Service June 07, 2024 Principal Dx & Hospital Course #1 = Principal Diagnosis (1) Bacteremia: (2) Influenza A: (3) Acute hypoxemic respiratory failure: (4) Syncope: (5) Hypertension: (6) Hyperglycemia: (7) Diabetes: Plan #Influenza A/ acute hypoxic respiratory failure/PNA --Sepsis with severe sepsis due to Streptococcus pneumoniae with acute hypoxic respiratory failure, POA #Bacteremia #Syncope, elevated trop #Hyperglycemia/Diabetes Mellitus #Nicotine Dependence 48F with a PMHx of asthma, HTN and MS (immunocomp on ocrevous, last infusion in Mar), and recent dx of Influenza A presented to ER w/ SOB and possible syncopal episodes at home. CTA Chest on admission without PE but noted multiple ground glass opacities/cavitary nodules in b/l lungs and few enlarged lymph nodes. Need for 4L NC on admission to maintain sats. + flu testing -Outside window for tamiflu (notable wasn't given OSH unclear why). WBC 17k on admission. Procal interestingly though NOT elevated. No hx IVDU, did have crack use >15yrs ago Blood cx strep pneumoniae from 06/03. Repeat blood cx 06/04 NGTD >48 hours Sputum cx moderate eleuterio on preliminary TTE/SAEID without vegetation/mass, reassuring Pulm/ID consulted and was discussed w/ ID and despite negative procalcitonin suspect bacteremia 2nd to superimposed bacterial pneumonia and w/ quick clearance on repeat blood cultures was ok'd to dc on 14d course w/ Amoxicillin 1gm TID given bacteremia. Initially was given Vanco/Ceftriaxone IV. Also completed 3 day course azithro for atypically coverage WBC trended down/normalized 9.8k prior to dc and remained afebrile Nebs w/ formoterol/budesonide per pulm, unclear sx asthma but rx to continue both at dc, patient has neb machine at home reported Continue pulm toilet, IS/flutter valve, tessalon pearls for cough. Vistaril for anxiety 10mg TID effective/panic attacks Lovenox SQ utilized for DVT proph O2 titrated OFF, 96% on RA and only dropped to 93% w/ ambulation on 2step testing and no need for ongoing O2 at baseline Notable also had A1c elevation 8.9 with prior hx DM, elevated Glu 283 on admission w/ recent steroids but was checked w/ hx to ensure. Prior intolerance to metformin reported and need prior auth for ozzempic but used in the past. did send rx but need f/u PCP to ensure prior auth done. Disc ussed in meantime w/ supervising provider and avoiding insulin (although has used in the past) and does report going to have dietary changes as done in the past and rx for Januvia at dc once daily. Enrico in place to her right arm/BSGs stable and only used 5glargine this AM and no significant elevation. Again, avoided insulin as wanting to avoid drops/hypoglycemia. To notify provider if any persistent highs/lows. Will need repeat CT chest in 6-8 wks in follow up to ensure resoluion. Also as discussed w/ patient will need MRI abd for likely hemangioma on admission CT, rec non-emergent outpt MRI and can be arranged by PCP in f/u Trop elevation suspected 2nd to demand ischemia from infection as above. ECHO w/o wma. No further issues since tx above. F/u PCP. +orthostatics on admission/IVF provided and ambulating without issues reported or further feeling of syncope. Notable smoking cessation encouraged, utilized nicotine patch while inpatient #HTN Significant elevations on admission but hadn't taken home meds and were provided. Additional 5mg amlodipine 2 days ago but has been stable at present.. Did have severe concentric LVH on ECHO to note and will monitor/increase amlodipine if needed given AA/benefit CCB vs thiazide diuretic. Would avoid diuretic given syncope on admission + orthostatics and remained on lisinopril 10mg daily, amlodipine 5mg daily. BP 129/83 prior to dc. If elevations in f/u consider increasing her amlodipine vs addition of low dose HCTZ #abnormal CT scan findings 8cm hypodense finding in lobe of liver and 3cm hypodense finding of spleen Pt aware of above 06/03 , will need nonurgent pre and postcontrast abdominal MRI with multiphase hemangioma protocol ed. Notes For Next Care Provider 2 step done prior to dc for completeness and did NOT need any supplemental O2 Should have continued smoking cessation counseling in follow up Will need CT chest 6-8 wks to ensure resolution in prior findings Blood cultures from 06/04 remained negative prior to dc but should ensure negative in follow up. If at any point positive would need 2wk CTX IV Follow up A1c/BSG values, was seen by DM educator/enrico provided and set up on her phone. Prior use ozempic but need prior auth but sent on once daily januvia per supervising provider in meantime. Ensure MRI abd for abn finding on CT for liver/spleen, likely benign but rec non-emergent MRI in f/u Medication Changes From Visit Amoxicillin 1gm TID x 14 day total course from negative blood cx 06/04 Budesonide neb BID, formoterol neb BID Tessalon pearls prn cough Vistaril 10mg TID prn anxiety/panic attack (effective here) Mucinex PO BID Januvia 50mg PO once daily Admission HPI Per Admitting Provider is a 48F with a PMHx of asmtha, HTN and MS who presents to the ED with continued shortness of breath. Has been diagnosed with influenza A about 2 weeks ago and has that 3 ER visits since then (2 at [facility]) with continued worsening of symptoms. Does report that steroids and nebulizer treatments helped initially but getting worse since noon yesterday. Reports shortness of breath and productive cough. Poor appetite, mainly taking in liquids. Also reporting loose stools. Does report two episodes of possible syncope - both happening at night after a coughing fit and reports "waking up feeling different". She is unsure if she has prodromal symptoms. Did not take her medications this morning, but based on her fill history, she likely does not take these everyday. Elevated BSG on arrival states she has been working with her PCP but has not been to the pharmacy to tack picker the medication yet (unsure of name). Quit smoking a week and half ago when she started getting sick. Was smoking 1/2 ppd. Declines nictoine patch. ETOH use is social. present at [facility] for eval. patient would like to be a full code. ED course: Duoneb NSS x1L Ceftriaxone 2g x1 azithromycin 500mg PO Admission Exam Per Admitting Provider General: NAD, VS as above HEENT: MM dry, mild scleral icterus. Resp: some accessory muscle use, poor aeration. no wheezing, but recently had hour long neb. On 3L NC 92% CV: RRR, no murmur, Abd: normal bowel sounds, non tender, Extremities: Moves all extremities, no edema Neuro: A&O x3, Discharge Exam General: 48yo female sitting up in bed, much improved, wanting to go home, on room air/NC for panic atttack prior Head: mm improved, trachea midline Resp: even/unlabored, no wheezing, rales resolved, no significant crackles, on RA, +occ cough, clear sputum, no tachypnea CV: RRR, rates controlled on monitor, no significant m/r/g, no pitting edema/calf tenderness GI: +BS, soft/nt no jean baptiste MSK/Neuro: not confused, answering questions appropriately, moves all extremities, no focal loss of strength Psych: AOx3, cooperative/pleasant during encounter, thankful for care Discharge Plan Discharge Items Patient Disposition: Home - Self-Care Reason For Visit: INFLUENZA A, HYPOXIA Discharge Diagnosis: Pneumonia, Bacteremia Diabetes/Hyperglycemia Goals: You have been hospitalized for an acute medical problem. During your stay at [facility], we have made an effort to correct the problem that brought you to the hospital while keeping you as comfortable as possible. Medications were used to bring your condition under control and your discharge instructions will include directions for any medications you should take after leaving the hospital. Please make sure you see your Primary Care Provider as part of your follow up plan. Activity: Resume your previous activity Non-emergency contact: Primary Care Provider and Flare Worker Call non-emergency contact if: you have any medication questions, your symptoms worsen, your pain is not controlled, your pain is worsening and your pain is unusual for you Follow-up/Referrals: Leighton Desai MD [Physician] - Jairo Brantley PA-C [Primary Care Provider] - Diet: Carb Consistent or DM2 and Heart Healthy Addtl Attending Provider Instructions: You have been hospitalized for shortness of breath and concerns for infection, especially given immunocompromised with your MS treatment. Blood cultures were positive for strep and found to have evidence for pneumonia likely from your recent flu infection. Pulmonology and infectious disease were consulted and antibiotics were provided and your repeat blood cultures have been CLEAR. Ultrasound of the heart did NOT show any evidence for clots/endocarditis or valvular disease. Your CT chest did NOT show any blood clots thankfully as well and were given shots to prevent this. We have converted your antibiotics to AMOXICILLIN 1gram THREE TIMES DAILY (every 8 hours) for a total of 14 days from negative blood cultures and should be until June 18 to complete the two week course per infectious disease. Repeat procalcitonin was negative and white count has NORMALIZED. We are sending home on inhaled nebulizers per pulmonology to use as well as Tessalon pearls three times daily for cough. Please continue incentive spirometer/flutter valve to strengthen lungs. You should have repeat CT chest in 6-8 weeks to ensure resolution in pneumonia/issues from current infection. You are also recommended to have nonemergent MRI of the abdomen for likely hemangioma (benign finding) which can be completed in follow up with primary care. You also were found to have elevated A1c/diabetes is back. The staff development educator saw you and have a Enrico to monitor. Primary care should follow up on ozempic prior auth but in the meantime are sending you on once daily JANUVIA (oral medication once daily) and you can follow up with primary care if having elevations >250 consistently to add mealtime insulin until ozempic can be obtained. I did send for the prescription but again will need primary care to complete the prior auth likely given your insurance before they will fill this. Please follow up with primary care in 7-10 day. Return to ER with any increased fevers/chills, chest pain, shortness of breath or for any other symptoms concerning for you. It has been a pleasure being a part of the medical team providing for you while you have been in the hospital. Take care! Pending Studies at Discharge: Yes Studies:: blood cultures from 06/04 -- no growth to date Stand-Alone Forms: [facility], Smoking Cessation Medications and DC Order Prescriptions: New Ozempic 0.25 mg or 0.5 mg (2 mg/3 mL) pen injector 0.25 mg subcut .weekly Qty: 3 0RF Rx Instructions: 0.25mg weekly x 2 weeks, then advance to 0.5mg weekly until PCP follow up amoxicillin 500 mg Capsule 1,000 mg PO TID 11 Days Qty: 67 0RF hydroxyzine HCl 10 mg Tablet 10 mg PO TID PRN (Reason: anxiety) Qty: 60 0RF famotidine 20 mg Tablet 20 mg PO BID Qty: 60 0RF budesonide 0.5 mg/2 mL Suspension For Nebulization 0.5 mg NEB BIDR Qty: 60 0RF formoterol fumarate [Perforomist] 20 mcg/2 mL Solution For Nebulization 20 mcg NEB BIDR Qty: 60 0RF benzonatate 100 mg Capsule 100 mg PO Q6H PRN (Reason: cough) Qty: 90 0RF guaifenesin [Mucinex] 600 mg Tablet Extended Release 12hr 1,200 mg PO Q12 Qty: 60 0RF Januvia 50 mg tablet 50 mg PO DAILY Qty: 30 0RF Continued ipratropium-albuterol 0.5 mg-3 mg(2.5 mg base)/3 mL solution for nebulization 3 ml inhalation Q8H PRN (Reason: wheezing) Qty: 90 0RF amlodipine 5 mg tablet 5 mg PO DAILY lisinopril 10 mg tablet 10 mg PO DAILY Ocrevus (Unknown Strength) See Rx Instructions .ROUTE .COMPLEX Rx Instructions: Inject every 6 months Discharge Orders: Discharge Order (Routine); Ordered 06/07/24 Ordered By: Gail Palomino Admission Data Admit Date/Time: 06/03/24 10:50 Attending Provider: William Henry Admit Provider: Last Zapata Primary Care Provider: Jairo Brantley Other Providers: Last Zapata; Leighton Desai; Ashley Ochoa; Emily Smith; Nataly aSeed; Taylor Marie; Carmel Olguin; Rosalind Archibald Other Interventions: Discharge Summary Assessment (RN) Last Done: 06/07/24 16:10 Hospital Stay Data Consultations 06/03/24 10:06 ED Decision to Admit Stat 06/03/24 11:46 Consult Pulmonology Routine 06/03/24 16:59 Consult Infectious Diseases Routine Procedures Performed Operation Date: 06/05/24 12:00 Actual Procedures p Echo Transesophageal - Jefferson Mix MD s Echo Doppler Complete - Jefferson Mix MD s Echo Color Flow - Jefferson Mix MD Diagnostic Imagining Performed 06/03/24 06:31 CT for pulmonary embolism PE [CT angio chest PE protocol] Stat 06/03/24 08:49 CT Abd and Pelvis [CT abd pelvis IV con only] Stat Discharge Instructions Given to Patient (Per Discharging Provider) You have been hospitalized for shortness of breath and concerns for infection, especially given immunocompromised with your MS treatment. Blood cultures were positive for strep and found to have evidence for pneumonia likely from your recent flu infection. Pulmonology and infectious disease were consulted and antibiotics were provided and your repeat blood cultures have been CLEAR. Ultrasound of the heart did NOT show any evidence for clots/endocarditis or valvular disease. Your CT chest did NOT show any blood clots thankfully as well and were given shots to prevent this. We have converted your antibiotics to AMOXICILLIN 1gram THREE TIMES DAILY (every 8 hours) for a total of 14 days from negative blood cultures and should be until June 18 to complete the two week course per infectious disease. Repeat procalcitonin was negative and white count has NORMALIZED. We are sending home on inhaled nebulizers per pulmonology to use as well as Tessalon pearls three times daily for cough. Please continue incentive spirometer/flutter valve to strengthen lungs. You should have repeat CT chest in 6-8 weeks to ensure resolution in pneumonia/issues from current infection. You are also recommended to have nonemergent MRI of the abdomen for likely hemangioma (benign finding) which can be completed in follow up with primary care. You also were found to have elevated A1c/diabetes is back. The staff development educator saw you and have a Enrico to monitor. Primary care should follow up on ozempic prior auth but in the meantime are sending you on once daily JANUVIA (oral medication once daily) and you can follow up with primary care if having elevations >250 consistently to add mealtime insulin until ozempic can be obtained. I did send for the prescription but again will need primary care to complete the prior auth likely given your insurance before they will fill this. Please follow up with primary care in 7-10 day. Return to ER with any increased fevers/chills, chest pain, shortness of breath or for any other symptoms concerning for you. It has been a pleasure being a part of the medical team providing for you while you have been in the hospital. Take care! Supervising Physician Co-Signing Physician Notes The patient was not seen by me. The chart was reviewed. Case discussed with ZAFAR Campbell. Agree with assessment and plan Total Time Total Time Spent Total Time Spent (In Minutes): 60 Coding Level of Care Code 08682 INP/OBS DISCH >30 MIN Diagnoses Bacteremia R78.81 Influenza A J10.1 Acute hypoxemic respiratory failure J96.01 Syncope R55 Hypertension I10 Hyperglycemia R73.9 Diabetes E11.9
[2024-06-07 15:10] VITALS: BP 129/83
[2024-06-07 16:03] VITALS: RESP 16; O2SAT 94
[2024-06-07 16:10] VITALS: PULSE 96
== END 2024-06-07 16:35 | disposition home or self-care (01) | DRG 871 ==
LOC: ED 05:29 → SUATTDRO 10:50 → EDINP 10:50 → 2N 13:44